=== PATIENT | female | born 1960 | race Caucasian/White ===

== ENCOUNTER → 2020-03-26 08:31 | Outpatient (BNVA) | payer OTHER, SELFPAY | PROVIDERS: PCP Family Medicine; Visit Provider Hospitalist | DX: J45.909 Unspecified asthma, uncomplicated (principal); J67.9 Hypersensitivity pneumonitis due to unspecified organic dust | CPT/HCPCS: 99212 ==

== ENCOUNTER → 2020-04-12 14:41 | Outpatient (BNVA) | payer OTHER, SELFPAY | PROVIDERS: PCP Family Medicine; Visit Provider Hospitalist | DX: Z23 Encounter for immunization (principal) | CPT/HCPCS: 90686; 99201 ==

== ENCOUNTER 2022-01-03 15:59 | Outpatient (REF) | payer OTHER, SELFPAY ==
--- NOTE | 2022-01-03 17:31 | PFT_ITS ---
INDICATION: Asthma and hypersensitivity pneumonitis. SPIROMETRY: FEV1 to FVC of 88% with an FEV1 of 2.47 L, which is 107% predicted and an FVC of 2.8 L, which is 94% predicted. No significant response to bronchodilators noted. Maximum voluntary ventilation 117% predicted. LUNG VOLUMES: Total lung capacity 92% predicted. DIFFUSION CAPACITY: DLCO 90% predicted. COMPARISONS: None available. INTERPRETATION: No obstructive nor restrictive ventilatory defects identified. No significant response to bronchodilators noted. Normal maximum voluntary ventilation. Lung volumes are within normal limits. Diffusion capacity is also within normal limits. Clinical correlation warranted. Boaz Nicole MD MR/MODL / [id number]
== END 2022-01-03 16:00 | disposition home or self-care (01) ==
LOC: HO.RESP 15:59
PROVIDERS: PCP Internal Medicine; Visit Provider Hospitalist
DX: J45.909 Unspecified asthma, uncomplicated (principal)
CPT/HCPCS: 94060; 94727; 94729

== ENCOUNTER 2022-01-18 10:42 | Outpatient (REF) | payer OTHER, SELFPAY ==
--- NOTE | ~2022-01-18 | XR_ITS ---
EXAMINATION: XR CHEST CLINICAL INFORMATION: Unspecified asthma COMPARISON: Chest x-ray 05/02/2019 TECHNIQUE: 2 views of the chest were obtained. FINDINGS: Cardiac silhouette is normal in size. The lungs are well aerated. Suture line projects over the right upper and mid lung. There is no lobar consolidation. No pleural effusion or pneumothorax. Scoliotic and mild degenerative changes of the spine. XR/XR chest 2V IMPRESSION: No acute pulmonary pathology.
== END 2022-01-18 10:43 | disposition home or self-care (01) ==
LOC: HO.XRAY 10:42
PROVIDERS: Visit Provider Hospitalist
DX: J45.909 Unspecified asthma, uncomplicated (principal)
CPT/HCPCS: 71046

== ENCOUNTER 2023-02-06 15:58 | Outpatient (REF) | payer OTHER, SELFPAY ==
--- NOTE | ~2023-02-06 | XR_ITS ---
EXAMINATION: XR CHEST CLINICAL INFORMATION: Asthma, uncomplicated COMPARISON: 01/18/2023 TECHNIQUE: 2 views of the chest were obtained. FINDINGS: No significant abnormality is noted involving the heart, lungs, mediastinum, bony thorax or soft tissues. Mild biconvex scoliosis is present. XR/XR chest 2V IMPRESSION: No acute intrathoracic disease.
--- NOTE | 2023-02-06 16:51 | PFT_ITS ---
INDICATION: Asthma. SPIROMETRY: FEV1 to FVC of 81% with an FEV1 of 2.29 L, which is 104% predicted and an FVC of 2.81 L, which is 101% predicted. No significant response to bronchodilators is noted. Maximum voluntary ventilation 121% predicted. LUNG VOLUMES: Total lung capacity 86% predicted. DIFFUSION CAPACITY: DLCO of 78% predicted. COMPARISONS: None available at this time. INTERPRETATION: No obstructive no restrictive ventilatory defects identified. No significant response to bronchodilators noted. Normal maximum voluntary ventilation. Lung volumes are within normal limits. The patient does have mild diffusion impairment. Clinical correlation warranted. Boza Nicole MD MR/MODL / [id number]
== END 2023-02-06 15:59 | disposition home or self-care (01) ==
LOC: HO.RESP 15:58
PROVIDERS: PCP Internal Medicine; Visit Provider Hospitalist
DX: J45.909 Unspecified asthma, uncomplicated (principal)
CPT/HCPCS: 71046; 94010; 94727; 94729

== ENCOUNTER → 2023-02-06 16:51 | Outpatient (BNV) | payer OTHER, SELFPAY | PROVIDERS: PCP Internal Medicine; Visit Provider Hospitalist | DX: J45.909 Unspecified asthma, uncomplicated (principal) | CPT/HCPCS: 94060; 94727; 94729 ==

== ENCOUNTER 2023-03-13 15:02 | Outpatient (REF) | payer OTHER, SELFPAY ==
[2023-03-13 16:33] LABS: Influenza A PCR POSITIVE (Negative); Influenza B PCR NEGATIVE (Negative); Resp Syncy Virus RNA Qual PCR NEGATIVE (Negative); SARS COV2 PCR INHOUSE NEGATIVE (Negative)
== END 2023-03-13 15:03 | disposition home or self-care (01) ==
LOC: HO.LNP 15:02
PROVIDERS: PCP Internal Medicine; Visit Provider Hospitalist
DX: Z11.52 Encounter for screening for COVID-19 (principal); Z20.822 Contact with and (suspected) exposure to COVID-19; J45.40 Moderate persistent asthma, uncomplicated
CPT/HCPCS: 0241U

== ENCOUNTER 2023-03-13 15:02 | Outpatient (AMB) | payer OTHER, SELFPAY ==
--- NOTE | 2023-03-13 15:09 | A.OFFVIS_ITS ---
Intake Vital Signs 03/13/23 15:12 Weight 124 lb 8.979 oz BP 102/60 Blood Pressure Location Lt brachial Position Sitting Pulse 87 Pulse Oximetry (%) 98 Oxygen Delivery Method Room Air Intake Visit Reasons: Asthma/PFT Follow Up Allergies No Known Allergies Allergy (Verified 03/13/23 15:19) Medication List - Last Reconciled 03/13/23 by Magui Ren LPN budesonide-formoterol 160-4.5 mcg/actuation (Symbicort) 2 puffs PO BID cholecalciferol (vitamin D3) 25 mcg PO DAILY estradiol (Yuvafem) 10 mcg vaginal 2XW hydrocortisone valerate 0.2% 1 appl topical BID PRN [lambdapil PO 1XD] magnesium 250 mg PO DAILY meloxicam 15 mg PO DAILY PRN montelukast 10 mg PO BEDTIME turmeric mg PO HPI HPI Comments History of Present Illness Details The patient is a 62-year-old woman with a known history of asthma in addition to acute fibrinous organizing pneumonia (AFOP) biopsy-proven. She did require prednisone and also CellCept for a duration of time. Subsequently was able to wean off. She has been doing well and have not seen her in the last couple years. She still complains of dyspnea on exertion. Moderate severity. Does have some wheezing at times. She does have a rescue inhaler that she uses. She used to have Symbicort HFA has not been using it regularly. She has not had any imaging studies of breathing studies in some time. Also to note her hypersensitivity panel had been positive in the past. She did have mold issues in the bathroom which was felt to be potentially contributing to her underlying interstitial process. She has normal lung mechanics which is reassuring. The patient was supposed to have an x-ray. 03/26/2020 the patient is here for pulmonary follow-up visit. Overall she has been doing well from a respiratory status. She denies any shortness of breath or coughing. She has been using her mask all time. At work there was a positive employee subsequently after that for people were out with COVID-19. She tested twice negative. She denies any ongoing symptoms. She has not had any recent x-rays or laboratory data. On examination she continues to have some wheezing. She needs to start using the Symbicort at least daily. She also should be using the singular at nighttime. No evidence of any recurrence from the organizing pneumonia likely related to hypersensitivity pneumonitis at this time. 01/24/2022 the patient is here for a pulmonary follow-up visit. She continues to do well. She has been compliant with her Symbicort taking it daily. In addition to that she has been using the singular daily. She is wondering if he needs to do all the medicine. She is feeling well. She denies any respiratory limitations. She is exercising regularly. Denies any wheezing or chest tightness or any significant allergies. Her allergies may be indeed more seasonal typically worse in the springtime. We did review her chest x-ray demonstrated no acute disease to some postsurgical changes and also her pulmonary function studies were normal. This is reassuring specially after having interstitial lung disease. No evidence of any recurrence or any significant residual. On examination she still has some minimal is crackles which is likely all related to her surgery. No significant wheezing. We did talk about decreasing the amount of Symbicort to 1 dilation and also she can use the Singulair seasonally. 03/13/2023 the patient is here for a pulmonary follow-up visit. Unfortunately the patient became ill the last couple days. She is been noticing hoarseness and also chest congestion and some shortness of breath. She is very concerned because of her history of interstitial lung disease and acute respiratory failure. I did reassure her that appears that she does have a viral syndrome. She has not tested for any viruses so therefore we did do a viral swab in the office for flu, RSV and COVID-19. On examination she does have some rhonchi and some wheezing on examination. She has been using the Symbicort twice a day which is reassuring she also has a rescue inhaler will make sure that she has 1 up today. The patient also did have pulmonary function studies which we personally reviewed and appeared to be reassuring without any evidence of any obstructive nor restrictive ventilatory defects. She had this study done prior to getting sick. And also prior to getting sick she did have a chest x- ray that was also without any acute disease. I did reassure her that based on those findings I do not believe she has any active interstitial lung disease and just an acute viral illness. The patient will be treating with medication. if she is no better by next week she will call and will do additional testing then. PFSH Medical History (Updated 03/15/23 @ 22:36 by Boaz Nicole MD) Viral syndrome H/O interstitial lung disease Hypersensitivity pneumonitis Organizing pneumonia Asthma Social History (Updated 01/24/22 @ 14:31 by WIL Morrow) Patient Tobacco Use Status: Never used Tobacco Review of Systems Const Reports chills, Reports fatigue, Reports malaise and Denies night sweats ENT Reports change in voice, Reports hoarseness, Denies lip swelling, Denies mouth pain, Reports nasal congestion, Reports nasal discharge and Denies tongue swelling Card Denies chest pain Resp Reports chest congestion, Denies cough and Reports wheezing GI Denies abdominal pain Musc Denies no additional complaints Neuro Denies Neuro-related abnormal movements Psych Denies no additional complaints Endo Reports fatigue Hermes/Lymph Denies easy bleeding and Denies lymphadenopathy Aller/Immun Denies lip swelling, Denies tongue swelling and Reports wheezing Physical Exam Vital Signs: Last Vital Signs Pulse 87 03/13/23 15:12 BP 102/60 03/13/23 15:12 Pulse Ox 98 03/13/23 15:12 Oxygen Delivery Method Room Air 03/13/23 15:12 Const General: alert HEENT General nose exam: Abnormal external nose present and Nasal discharge present Eyes Pupils: Equal, round and reactive pupils present Neck Neck: Yes normal visual inspection, Yes full ROM and Yes no lymphadenopathy Chest Chest palpation & inspection: normal inspection of the chest Resp Auscultation: rales, rhonchi, wheezes and diminished lung sounds Cardio Rate: regular rate Rhythm: regular rhythm Heart sounds: S1 normal heart sound present and S2 normal heart sound present GI Palpation (GI): Soft to palpation and nontender Auscultation: normal bowel sounds General: Yes no CVA tenderness Back/Spine/Pelvis Back: no CVA tenderness Skin General skin exam: rashes and/or lesions noted Neuro Cranial nerves: Yes Equal, round and reactive pupils present Assessment & Plan Assessment & Plan (1) Viral syndrome: Code(s): B34.9 - Viral infection, unspecified (2) Asthma: Code(s): J45.909 - Unspecified asthma, uncomplicated Qualifiers: Asthma severity: moderate Asthma persistence: persistent Asthma complication type: uncomplicated Qualified Code(s): J45.40 - Moderate persistent asthma, uncomplicated Plan: Short-acting beta agonist as needed (3) Hypersensitivity pneumonitis: Comment: No evidence of active disease Code(s): J67.9 - Hypersensitivity pneumonitis due to unspecified organic dust Plan: Avoiding mold (4) H/O interstitial lung disease: Comment: no evidence of active disease Code(s): Z87.09 - Personal history of other diseases of the respiratory system Plan nasal swab. awaiting results start Prednisone taper start Doxycycline continue symbicort MARY as needed F/U 6 months Orders: Orders SARS-CoV2/FLU/RSV 03/13/23 J45.909 - Unspecified asthma, uncomplicated Medications: New prednisone PO daily; 3 tabs x 3 days, then 2 tabs daily x 3 days, then 1 tab x 3 days to complete. 9 days 18 tabs 0RF doxycycline monohydrate 100 mg PO BID 10 days 20 tabs 0RF albuterol sulfate 90 mcg/actuation 2 inhalations inhalation Q6H 30 days PRN 18 grams 12RF shortness of breath or wheezing J44.9 - Chronic obstructive pulmonary disease, unspecified Refilled budesonide-formoterol 160-4.5 mcg/actuation (Symbicort) 2 puffs PO BID 30.6 grams 3RF Coding Level of Care Code Est Pt Level 4 (28074) Diagnoses Viral syndrome B34.9 Moderate persistent asthma without complication J45.40 Asthma severity: moderate Asthma persistence: persistent Asthma complication type: uncomplicated Hypersensitivity pneumonitis J67.9 H/O interstitial lung disease Z87.09 Time Spent (min) 17
[2023-03-13 15:12] VITALS: BP 102/60; PULSE 87; O2SAT 98
== END 2023-03-13 15:44 | disposition home or self-care (01) ==
PROVIDERS: PCP Internal Medicine; Visit Provider Hospitalist
DX: B34.9 Viral infection, unspecified (principal); J45.40 Moderate persistent asthma, uncomplicated; J67.9 Hypersensitivity pneumonitis due to unspecified organic dust; Z87.09 Personal history of other diseases of the respiratory system
CPT/HCPCS: 99214

== ENCOUNTER 2023-09-18 15:44 | Outpatient (AMB) | payer OTHER, SELFPAY ==
[2023-09-18 15:51] VITALS: PULSE 61; O2SAT 99; BMI 22.3
--- NOTE | 2023-09-18 15:51 | MHC.OFFVIS ---
Vital Signs 09/18/23 15:51 Height 5 ft 1 in Weight 118 lb BMI 22.3 Pulse 61 Pulse Source Pulse Oximeter Pulse Oximetry (%) 99 Oxygen Delivery Method Room Air Intake Visit Reasons: Asthma [employer]inder[employer] A[employer] Required: No Allergies No Known Allergies Allergy (Verified 09/18/23 15:53) HPI Comments Details: The patient is a 62-year-old woman with a known history of asthma in addition to acute fibrinous organizing pneumonia (AFOP) biopsy-proven. She did require prednisone and also CellCept for a duration of time. Subsequently was able to wean off. She has been doing well and have not seen her in the last couple years. She still complains of dyspnea on exertion. Moderate severity. Does have some wheezing at times. She does have a rescue inhaler that she uses. She used to have Symbicort HFA has not been using it regularly. She has not had any imaging studies of breathing studies in some time. Also to note her hypersensitivity panel had been positive in the past. She did have mold issues in the bathroom which was felt to be potentially contributing to her underlying interstitial process. She has normal lung mechanics which is reassuring. The patient was supposed to have an x-ray. 03/26/2020 the patient is here for pulmonary follow-up visit. Overall she has been doing well from a respiratory status. She denies any shortness of breath or coughing. She has been using her mask all time. At work there was a positive employee subsequently after that for people were out with COVID-19. She tested twice negative. She denies any ongoing symptoms. She has not had any recent x-rays or laboratory data. On examination she continues to have some wheezing. She needs to start using the Symbicort at least daily. She also should be using the singular at nighttime. No evidence of any recurrence from the organizing pneumonia likely related to hypersensitivity pneumonitis at this time. 01/24/2022 the patient is here for a pulmonary follow-up visit. She continues to do well. She has been compliant with her Symbicort taking it daily. In addition to that she has been using the singular daily. She is wondering if he needs to do all the medicine. She is feeling well. She denies any respiratory limitations. She is exercising regularly. Denies any wheezing or chest tightness or any significant allergies. Her allergies may be indeed more seasonal typically worse in the springtime. We did review her chest x-ray demonstrated no acute disease to some postsurgical changes and also her pulmonary function studies were normal. This is reassuring specially after having interstitial lung disease. No evidence of any recurrence or any significant residual. On examination she still has some minimal is crackles which is likely all related to her surgery. No significant wheezing. We did talk about decreasing the amount of Symbicort to 1 dilation and also she can use the Singulair seasonally. 03/13/2023 the patient is here for a pulmonary follow-up visit. Unfortunately the patient became ill the last couple days. She is been noticing hoarseness and also chest congestion and some shortness of breath. She is very concerned because of her history of interstitial lung disease and acute respiratory failure. I did reassure her that appears that she does have a viral syndrome. She has not tested for any viruses so therefore we did do a viral swab in the office for flu, RSV and COVID-19. On examination she does have some rhonchi and some wheezing on examination. She has been using the Symbicort twice a day which is reassuring she also has a rescue inhaler will make sure that she has 1 up today. The patient also did have pulmonary function studies which we personally reviewed and appeared to be reassuring without any evidence of any obstructive nor restrictive ventilatory defects. She had this study done prior to getting sick. And also prior to getting sick she did have a chest x-ray that was also without any acute disease. I did reassure her that based on those findings I do not believe she has any active interstitial lung disease and just an acute viral illness. The patient will be treating with medication. if she is no better by next week she will call and will do additional testing then. 09/18/2023 the patient is here for a pulmonary follow-up visit. The patient overall has been doing better. She did have the flu back in March and exacerbated her asthma. Currently she is back to her baseline. She is using Symbicort that she still feels some chest tightness at times. She has not had to use Singulair. The patient has been trying to increase her exercise activity. We did review her last chest x-ray that she had back in the fall of 2022 demonstrating no acute disease. And we also reviewed her PFTs that she had back in 01/30/2023 demonstrating low normal total lung capacity with a mild diffusion impairment. This is a slight decreased when compared to 2020 2. Will go ahead and repeat her PFTs in a year. Patient should also have a chest x-ray as well. Will go ahead and also try to optimize respiratory therapy by switching her over to Breztri. If the patient has any worsening issues or any new issues she will call for an earlier assessment. [facility] Medical History (Updated 03/15/23 @ 22:36 by Boaz Nicole MD) Viral syndrome H/O interstitial lung disease Hypersensitivity pneumonitis Organizing pneumonia Asthma Social History (Updated 01/24/22 @ 14:31 by Nia Nunez Harsh) Patient Tobacco Use Status: Never used Tobacco Review of Systems Const Denies chills, Denies fatigue, Denies malaise and Denies night sweats ENT Denies lip swelling, Denies mouth pain, Reports nasal congestion and Denies tongue swelling Card Denies chest pain Resp Denies chest congestion, Denies cough and Denies wheezing GI Denies abdominal pain Musc Denies no additional complaints Neuro Denies Neuro-related abnormal movements Psych Denies no additional complaints Endo Denies fatigue Hermes/Lymph Denies easy bleeding and Denies lymphadenopathy Aller/Immun Denies lip swelling, Denies tongue swelling and Denies wheezing Physical Exam Vital Signs: Last Vital Signs Pulse 61 09/18/23 15:51 Pulse Ox 99 09/18/23 15:51 Oxygen Delivery Method Room Air 09/18/23 15:51 BMI result Body Mass Index 22.3 Const General: comfortable and alert HEENT Head: Yes normocephalic General nose exam: Normal external nose present Eyes Pupils: Equal, round and reactive pupils present Neck Neck: Yes normal visual inspection, Yes full ROM and Yes no lymphadenopathy Chest Chest palpation & inspection: normal inspection of the chest Resp Effort & Inspection: normal respiratory effort Auscultation: clear to auscultation bilaterally Cardio Rate: regular rate Rhythm: regular rhythm Heart sounds: S1 normal heart sound present and S2 normal heart sound present GI Palpation (GI): Soft to palpation and nontender Auscultation: normal bowel sounds General: Yes no CVA tenderness Back/Spine/Pelvis Back: no CVA tenderness Skin General skin exam: rashes and/or lesions noted Neuro Cranial nerves: Yes Equal, round and reactive pupils present Assessment & Plan Assessment & Plan (1) Asthma: Code(s): J45.909 - Unspecified asthma, uncomplicated Category: Medical Qualifiers: Asthma complication type: uncomplicated Asthma persistence: persistent Asthma severity: moderate Qualified Code(s): J45.40 - Moderate persistent asthma, uncomplicated Plan: Short-acting beta agonist as needed (2) Hypersensitivity pneumonitis: Comment: No evidence of active disease Code(s): J67.9 - Hypersensitivity pneumonitis due to unspecified organic dust Category: Medical Plan: Avoiding mold (3) H/O interstitial lung disease: Comment: no evidence of active disease Code(s): Z87.09 - Personal history of other diseases of the respiratory system Category: Medical Plan stop symbicort start Breztri MARY as needed F/U 12 months with CXR and PFTs Orders: Orders XR chest 2V 11 Months J45.40 - Moderate persistent asthma, uncomplicated PFT pulmonary function test 11 Months J45.40 - Moderate persistent asthma, uncomplicated Medications: New iqtqwrxssb-nziphozv-yismqlzuhh 160-9-4.8 mcg/actuation (Breztri Aerosphere) 2 inhalations inhalation BID 30 days 10.7 grams 11RF Coding Level of Care Code Est Pt Level 4 (52211) Diagnoses Moderate persistent asthma without complication J45.40 Asthma complication type: uncomplicated Asthma persistence: persistent Asthma severity: moderate Hypersensitivity pneumonitis J67.9 H/O interstitial lung disease Z87.09 Time Spent (min) 16
== END 2023-09-18 16:11 | disposition home or self-care (01) ==
PROVIDERS: PCP Internal Medicine; Visit Provider Hospitalist
DX: J45.40 Moderate persistent asthma, uncomplicated (principal); J67.9 Hypersensitivity pneumonitis due to unspecified organic dust; Z87.09 Personal history of other diseases of the respiratory system
CPT/HCPCS: 99214

== ENCOUNTER → 2023-09-18 15:44 | Outpatient (BNVA) | payer OTHER, SELFPAY | PROVIDERS: PCP Internal Medicine; Visit Provider Hospitalist ==

== ENCOUNTER 2024-01-22 09:16 | Outpatient (REF) | payer OTHER, SELFPAY ==
--- NOTE | ~2024-01-22 | XR_ITS ---
EXAMINATION: XR CHEST CLINICAL INFORMATION: Moderate persistent asthma COMPARISON: Chest radiograph 02/06/2023 TECHNIQUE: 2 views of the chest were obtained. FINDINGS: The lungs are well-expanded. No focal consolidation. No pleural effusions or pneumothorax. The cardiac mediastinal silhouette is within normal limits. Aortic calcifications. No acute osseous abnormality. Mild extra convex curvature of the lumbar spine. 4 mm retrolisthesis of likely L2 over L3, similar to prior exam. Degenerative changes of the lumbar spine. XR/XR chest 2V IMPRESSION: No acute pulmonary disease. Electronically signed by: Jigar Smith MD 01/22/2024 10:55 AM EDT
== END 2024-01-22 09:17 | disposition home or self-care (01) ==
LOC: HO.XRAY 09:16
PROVIDERS: Visit Provider Hospitalist
DX: J45.40 Moderate persistent asthma, uncomplicated (principal)
CPT/HCPCS: 71046

== ENCOUNTER 2024-01-22 09:34 | Outpatient (AMB) | payer OTHER, SELFPAY ==
[2024-01-22 09:39] VITALS: BP 130/78; PULSE 62; O2SAT 98; BMI 22.7
--- NOTE | 2024-01-22 09:39 | A.OFFVIS_ITS ---
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 She did require prednisone and also CellCept for a duration of time. Subsequently was able to wean off. She has been doing well and have not seen her in the last couple years. She still complains of dyspnea on exertion. Moderate severity. Does have some wheezing at times. She does have a rescue inhaler that she uses. She used to have Symbicort HFA has not been using it regularly. She has not had any imaging studies of breathing studies in some time. Also to note her hypersensitivity panel had been positive in the past. She did have mold issues in the bathroom which was felt to be potentially contributing to her underlying interstitial process. She has normal lung mechanics which is reassuring. The patient was supposed to have an x-ray. 03/26/2020 the patient is here for pulmonary follow-up visit. Overall she has been doing well from a respiratory status. She denies any shortness of breath or coughing. She has been using her mask all time. At work there was a positive employee subsequently after that for people were out with COVID-19. She tested twice negative. She denies any ongoing symptoms. She has not had any recent x-rays or laboratory data. On examination she continues to have some wheezing. She needs to start using the Symbicort at least daily. She also should be using the singular at nighttime. No evidence of any recurrence from the organizing pneumonia likely related to hypersensitivity pneumonitis at this time. 01/24/2022 the patient is here for a pulmonary follow-up visit. She continues to do well. She has been compliant with her Symbicort taking it daily. In addition to that she has been using the singular daily. She is wondering if he needs to do all the medicine. She is feeling well. She denies any respiratory limitations. She is exercising regularly. Denies any wheezing or chest tightness or any significant allergies. Her allergies may be indeed more seasonal typically worse in the springtime. We did review her chest x-ray demonstrated no acute disease to some postsurgical changes and also her pulmonary function studies were normal. This is reassuring specially after having interstitial lung disease. No evidence of any recurrence or any significant residual. On examination she still has some minimal is crackles which is likely all related to her surgery. No significant wheezing. We did talk about decreasing the amount of Symbicort to 1 dilation and also she can use the Singulair seasonally. 03/13/2023 the patient is here for a pulmonary follow-up visit. Unfortunately the patient became ill the last couple days. She is been noticing hoarseness and also chest congestion and some shortness of breath. She is very concerned because of her history of interstitial lung disease and acute respiratory failure. I did reassure her that appears that she does have a viral syndrome. She has not tested for any viruses so therefore we did do a viral swab in the office for flu, RSV and COVID-19. On examination she does have some rhonchi and some wheezing on examination. She has been using the Symbicort twice a day which is reassuring she also has a rescue inhaler will make sure th at she has 1 up today. The patient also did have pulmonary function studies which we personally reviewed and appeared to be reassuring without any evidence of any obstructive nor restrictive ventilatory defects. She had this study done prior to getting sick. And also prior to getting sick she did have a chest x- ray that was also without any acute disease. I did reassure her that based on those findings I do not believe she has any active interstitial lung disease and just an acute viral illness. The patient will be treating with medication. if she is no better by next week she will call and will do additional testing then. 09/18/2023 the patient is here for a pulmonary follow-up visit. The patient overall has been doing better. She did have the flu back in March and exacerbated her asthma. Currently she is back to her baseline. She is using Symbicort that she still feels some chest tightness at times. She has not had to use Singulair. The patient has been trying to increase her exercise activity. We did review her last chest x-ray that she had back in the fall of 2022 demonstrating no acute disease. And we also reviewed her PFTs that she had back in 01/30/2023 demonstrating low normal total lung capacity with a mild diffusion impairment. This is a slight decreased when compared to 2019 2. Will go ahead and repeat her PFTs in a year. Patient should also have a chest x-ray as well. Will go ahead and also try to optimize respiratory therapy by switching her over to Breztri. If the patient has any worsening issues or any new issues she will call for an earlier assessment. 01/22/2024 the patient is here for sick visit. She has been sick now for about 2 weeks. She started developing a cough. Positive sick contacts at home. Started developing sore throat and also some tenderness over the cervical lymph nodes. Subsequently after that she started developing a cough. She went to an urgent care. The patient was given a course of doxycycline and a short course of prednisone. She did not feel better. The patient went to her primary care doctor's office. She was evaluated there. She was kept on the doxy and her prednisone was increased to 60 mg. She has been weaning down. She has not seen significant improvement. She feels that she has a significant productive cough. Moderate severity. She can not sleep with it. She has tried xjdn-osk-nawbftl allergy medications without any relief. In the office she has significant rhonchi and wheezing. She is getting nebulizer treatment now. She does have evidence of sinusitis and also bronchitis. The patient did have a chest x-ray which I personally reviewed demonstrating no acute disease. We are awaiting final read. [facility] Medical History (Updated 01/25/24 @ 21:06 by Boaz Nicole MD) Viral syndrome H/O interstitial lung disease Hypersensitivity pneumonitis Organizing pneumonia Asthma Social History (Updated 01/24/22 @ 14:31 by WIL Morrow) Patient Tobacco Use Status: Never used Tobacco Review of Systems Const Denies chills, Reports fatigue, Denies malaise and Denies night sweats ENT Denies lip swelling, Denies mouth pain, Reports nasal congestion and Denies tongue swelling Card Denies chest pain Resp Reports change in phlegm color, Reports chest congestion, Reports cough, Denies hemoptysis and Reports wheezing GI Denies abdominal pain Musc Denies no additional complaints Neuro Denies Neuro-related abnormal movements Psych Denies no additional complaints Endo Reports fatigue Hermes/Lymph Denies easy bleeding and Denies lymphadenopathy Aller/Immun Denies lip swelling, Denies tongue swelling and Reports wheezing Physical Exam Vital Signs: Last Vital Signs Pulse 62 01/22/24 09:39 BP 130/78 01/22/24 09:39 Pulse Ox 98 01/22/24 09:39 Oxygen Delivery Method Room Air 01/22/24 09:39 BMI result Body Mass Index 22.7 Const General: comfortable and alert HEENT Head: Yes normocephalic General nose exam: Normal external nose present Eyes Pupils: Equal, round and reactive pupils present Neck Neck: Yes normal visual inspection, Yes full ROM and Yes no lymphadenopathy Chest Chest palpation & inspection: normal inspection of the chest Resp Effort & Inspection: normal respiratory effort and Actively coughing Auscultation: wheezes Cardio Rate: regular rate Rhythm: regular rhythm Heart sounds: S1 normal heart sound present and S2 normal heart sound present GI Palpation (GI): Soft to palpation and nontender Auscultation: normal bowel sounds General: Yes no CVA tenderness Back/Spine/Pelvis Back: no CVA tenderness Skin General skin exam: rashes and/or lesions noted Neuro Cranial nerves: Yes Equal, round and reactive pupils present Results Reviewed Results Reviewed: CXR 01/21 personally reviewed by me, no acute disease Assessment & Plan Assessment & Plan (1) Asthma: Code(s): J45.909 - Unspecified asthma, uncomplicated Category: Medical Qualifiers: Asthma complication type: with acute exacerbation Asthma persistence: persistent Asthma severity: moderate Qualified Code(s): J45.41 - Moderate persistent asthma with (acute) exacerbation Plan: Short-acting beta agonist as needed (2) Bronchitis: Code(s): J40 - Bronchitis, not specified as acute or chronic Category: Medical (3) Hypersensitivity pneumonitis: Comment: No evidence of active disease Code(s): J67.9 - Hypersensitivity pneumonitis due to unspecified organic dust Category: Medical Plan: Avoiding mold (4) H/O interstitial lung disease: Comment: no evidence of active disease Code(s): Z87.09 - Personal history of other diseases of the respiratory system Category: Medical Plan start Augmentin continue prednisone taper nebulizer provided continue Breztri MARY as needed F/U 2-3 months Medications: New benzonatate 200 mg PO BID PRN 60 caps 0RF cough 30 days prednisone PO daily; Take 4 tabs x 3 days, then 3 tabs x 3 days, then 2 tabs daily x 3 days, then 1 tab x 3 days to complete. 30 tabs 0RF 12 days amoxicillin-pot clavulanate 875-125 mg 1 tab PO BID 20 tabs 0RF 10 days albuterol sulfate 2.5 mg (3 mL) inhalation Q6H PRN 180 mL 11RF shortness of breath or wheezing 30 days Coding Level of Care Code Est Pt Level 4 (15177) Diagnoses Moderate persistent asthma with acute exacerbation J45.41 Asthma complication type: with acute exacerbation Asthma persistence: persistent Asthma severity: moderate Bronchitis J40 Hypersensitivity pneumonitis J67.9 H/O interstitial lung disease Z87.09 Time Spent (min) 18
== END 2024-01-22 10:43 | disposition home or self-care (01) ==
PROVIDERS: PCP Internal Medicine; Visit Provider Hospitalist
DX: J45.41 Moderate persistent asthma with (acute) exacerbation (principal); J40 Bronchitis, not specified as acute or chronic; J67.9 Hypersensitivity pneumonitis due to unspecified organic dust; Z87.09 Personal history of other diseases of the respiratory system
CPT/HCPCS: 99214

== ENCOUNTER 2024-02-12 09:20 | Outpatient (REF) | payer OTHER, SELFPAY ==
[2024-02-12 11:14] LABS: MANUAL DIFF FLAG NO
[2024-02-12 11:18] LABS: VBG Base Excess 1.4 mmol/L; VBG HCO3 27 mmol/L (22-26); VBG pCO2 47 mmHg; VBG pH 7.36 (7.32-7.43); VBG pO2 34 mmHg
[2024-02-12 11:19] LABS: Venous Blood Gas Refer to POC result
[2024-02-12 11:35] LABS: Basophils Percent Auto 0.6 % (0-2); Eosinophils Absolute Auto 0.2 X10*3/uL (0.0-0.4); Eosinophils Percent Auto 3.7 % (0-4); Hematocrit 38.5 % (37.0-47.0); Hemoglobin 12.7 g/dl (12.0-16.0); Imm Gran Abs Auto 0.05 X10*3/uL (0.00-0.03); Lymphocytes Absolute Auto 1.2 X10*3/uL (1.2-4.9); Lymphocytes Percent Auto 22.4 % (20-40); Mean Corpuscular Hemoglobin 30.5 pg (27.0-33.0); Mean Corpuscular Volume 92.5 fL (80.0-98.0); Mean Platelet Volume 11.3 fL (9.4-12.3); Monocytes Absolute Auto 0.5 X10*3/uL (0.1-1.2); Monocytes Percent Auto 9.9 % (2-11); Neutrophils Absolute Auto 3.2 x10*3/uL (2.0-8.3); Neutrophils Percent Auto 62.4 % (45-73); Platelet Count 172 X10*3/uL (160-400); Red Blood Count 4.16 X10*6/uL (4.20-5.50); Red Cell Distribution Width 13.3 % (11.0-16.0); White Blood Count 5.2 X10*3/uL (4.8-10.8)
[2024-02-15 07:33] LABS: IgA 187 mg/dL (70-320); IgG 1046 mg/dL (600-1540); IgM 153 mg/dL (50-300)
[2024-02-15 15:34] LABS: Immunoglobulin G Subclass 1 474 mg/dL (382-929); Immunoglobulin G Subclass 2 349 mg/dL (241-700); Immunoglobulin G Subclass 3 44 mg/dL (22-178); Immunoglobulin G Subclass 4 34.8 mg/dL (4-86); Immunoglobulin G Total 945 mg/dL (600-1540)
[2024-02-15 23:35] LABS: Immunoglobulin E 6 kU/L (<OR=114)
[2024-02-16 21:29] LABS: Cyclic Citrullinated Peptide 33 UNITS
[2024-02-17 07:38] LABS: Anti DNA DS Antibody <1 IU/mL; Myeloperoxidase Antibody <1.0 AI; Proteinase 3 PR3 Antibodies <1.0 AI
[2024-02-18 12:23] LABS: Anti Nuclear Antibody Screen POSITIVE (NEGATIVE)
[2024-02-24 16:43] LABS: Asperg fumigatus Precip Abs NEGATIVE (NEGATIVE); Micropoly faeni Abs NEGATIVE (NEGATIVE); Pigeon serum Abs NEGATIVE (NEGATIVE); Saccharo pora viridis Abs NEGATIVE (NEGATIVE); Thermo candidus Abs NEGATIVE (NEGATIVE); Thermoa vulgaris #1 NEGATIVE (NEGATIVE)
== END 2024-02-12 09:21 | disposition home or self-care (01) ==
LOC: HO.XRAY 09:20
PROVIDERS: PCP Internal Medicine; Visit Provider Hospitalist
DX: J98.4 Other disorders of lung (principal); J40 Bronchitis, not specified as acute or chronic; R91.8 Other nonspecific abnormal finding of lung field
CPT/HCPCS: 36415; 71046; 82164; 82784; 82785; 82803; 85025; 86021; 86038; 86039; 86200; 86225; 86331; 86606; 86609

== ENCOUNTER 2024-02-12 09:46 | Outpatient (AMB) | payer OTHER, SELFPAY ==
--- NOTE | 2024-02-12 09:54 | MHC.OFFVIS ---
Vital Signs 02/12/24 09:57 Height 5 ft 1 in Weight 120 lb 2.431 oz BMI 22.7 BP 110/62 Blood Pressure Location Lt brachial Position Sitting Pulse 85 Pulse Source Pulse Oximeter Pulse Oximetry (%) 98 Oxygen Delivery Method Room Air Intake Visit Reasons: Cough Fixed Income Manager Required: No Industrial Relations Officer: Industrial Relations Officer offered & declined Accompanied by: Self / Same As Patient Allergies No Known Allergies Allergy (Verified 02/12/24 10:07) Medication List - Last Reconciled 02/12/24 by Genet Tillman LPN albuterol sulfate 90 mcg/actuation 2 inhalations inhalation Q6H PRN 30 days albuterol sulfate 2.5 mg (3 mL) inhalation Q6H PRN 30 days amoxicillin-pot clavulanate 875-125 mg 1 tab PO BID 10 days azithromycin 500 mg PO DAILY 5 days benzonatate 200 mg PO BID PRN 30 days xytaourrfi-bfrtzmbf-xkyjhemnpv 160-9-4.8 mcg/actuation (Breztri Aerosphere) 2 inhalations inhalation BID 30 days cholecalciferol (vitamin D3) 25 mcg PO DAILY doxycycline hyclate 100 mg PO BID estradiol (Yuvafem) 10 mcg vaginal 2XW hydrocortisone valerate 0.2% 1 appl topical BID PRN [lambdapil PO 1XD] magnesium 250 mg PO DAILY meloxicam 15 mg PO DAILY PRN montelukast 10 mg PO BEDTIME PRN prednisone PO daily; Take 4 tabs x 3 days, then 3 tabs x 3 days, then 2 tabs daily x 3 days, then 1 tab x 3 days to complete. 12 days prednisone PO daily; Take 2 tabs daily x 5 days, then 1 tab daily x 5 days 18 days prednisone 40 mg PO DAILY HPI Comments Details: The patient is a 63-year-old woman with a known history of asthma in addition to acute fibrinous organizing pneumonia (AFOP) biopsy-proven. She did require prednisone and also CellCept for a duration of time. Subsequently was able to wean off. She has been doing well and have not seen her in the last couple years. She still complains of dyspnea on exertion. Moderate severity. Does have some wheezing at times. She does have a rescue inhaler that she uses. She used to have Symbicort HFA has not been using it regularly. She has not had any imaging studies of breathing studies in some time. Also to note her hypersensitivity panel had been positive in the past. She did have mold issues in the bathroom which was felt to be potentially contributing to her underlying interstitial process. She has normal lung mechanics which is reassuring. The patient was supposed to have an x-ray. crackles which is likely all related to her surgery. No significant wheezing. We did talk about decreasing the amount of Symbicort to 1 dilation and also she can use the Singulair seasonally. 03/13/2023 the patient is here for a pulmonary follow-up visit. Unfortunately the patient became ill the last couple days. She is been noticing hoarseness and also chest congestion and some shortness of breath. She is very concerned because of her history of interstitial lung disease and acute respiratory failure. I did reassure her that appears that she does have a viral syndrome. She has not tested for any viruses so therefore we did do a viral swab in the office for flu, RSV and COVID-19. On examination she does have some rhonchi and some wheezing on examination. She has been using the Symbicort twice a day which is reassuring she also has a rescue inhaler will make sure that she has 1 up today. The patient also did have pulmonary function studies which we personally reviewed and appeared to be reassuring without any evidence of any obstructive nor restrictive ventilatory defects. She had this study done prior to getting sick. And also prior to getting sick she did have a chest x-ray that was also without any acute disease. I did reassure her that based on those findings I do not believe she has any active interstitial lung disease and just an acute viral illness. The patient will be treating with medication. if she is no better by next week she will call and will do additional testing then. 09/18/2023 the patient is here for a pulmonary follow-up visit. The patient overall has been doing better. She did have the flu back in March and exacerbated her asthma. Currently she is back to her baseline. She is using Symbicort that she still feels some chest tightness at times. She has not had to use Singulair. The patient has been trying to increase her exercise activity. We did review her last chest x-ray that she had back in the fall of 2022 demonstrating no acute disease. And we also reviewed her PFTs that she had back in 01/30/2023 demonstrating low normal total lung capacity with a mild diffusion impairment. This is a slight decreased when compared to 2020 2. Will go ahead and repeat her PFTs in a year. Patient should also have a chest x-ray as well. Will go ahead and also try to optimize respiratory therapy by switching her over to Breztri. If the patient has any worsening issues or any new issues she will call for an earlier assessment. 01/22/2024 the patient is here for sick visit. She has been sick now for about 2 weeks. She started developing a cough. Positive sick contacts at home. Started developing sore throat and also some tenderness over the cervical lymph nodes. Subsequently after that she started developing a cough. She went to an urgent care. The patient was given a course of doxycycline and a short course of prednisone. She did not feel better. The patient went to her primary care doctor's office. She was evaluated there. She was kept on the doxy and her prednisone was increased to 60 mg. She has been weaning down. She has not seen significant improvement. She feels that she has a significant productive cough. Moderate severity. She can not sleep with it. She has tried xzcx-ndu-zwaqgsm allergy medications without any relief. In the office she has significant rhonchi and wheezing. She is getting nebulizer treatment now. She does have evidence of sinusitis and also bronchitis. The patient did have a chest x-ray which I personally reviewed demonstrating no acute disease. We are awaiting final read. 02/12/2024 the patient is here for a follow-up visit. She developed worsening respiratory symptoms since we last spoke. apparently she was feeling better and she had a fall and she had a significant hematoma on the right thigh. She went to initially [facility] with a documented a large hematoma. Ultimately she started developing worsening shortness of breath and hypoxia. She was referred to [facility]. There she did undergo blood work including a hemoglobin dropping in of 3 g. in addition to that she had a CTA which I personally reviewed demonstrating some haziness suggesting some degree of pneumonitis which was diffuse throughout. No evidence of any pneumonia. She completed the 2nd course of antibiotics. In addition to that now she is having some ear pressure and sinus discomfort. She is down to 10 mg of prednisone. She is using the nebulizer. But she is concerned that she is not significantly better. She does have a pulse ox and sometimes her pulse ox is in the 80s. On exam she still has significant wheezing on exam. She is going to need to stay on the prednisone. Also some evidence of fluid in the middle ear. Will request additional blood work to assess her pneumonitis. Could be postviral although she does have a history of a fall likely hypersensitivity pneumonitis. We did try to collect a sputum sample in the office but we were not able to. Will go ahead and request blood work. If the patient is not able to provide a sputum sample and if it is still not clear if his symptoms have not improved with this 3rd course of medications then will talk about a bronchoscopy. [facility] Medical History (Updated 02/14/24 @ 17:21 by Boaz Nicole MD) Otitis media Bronchopneumonia Pneumonitis Viral syndrome H/O interstitial lung disease Hypersensitivity pneumonitis Organizing pneumonia Asthma Social History (Updated 02/12/24 @ 10:09 by Genet Tillman LPN) Patient Tobacco Use Status: Never used Tobacco Review of Systems Const Denies chills, Reports fatigue, Denies malaise and Denies night sweats ENT Denies lip swelling, Denies mouth pain, Reports nasal congestion and Denies tongue swelling Card Denies chest pain and Reports dyspnea on exertion Resp Reports chest congestion, Reports cough, Denies hemoptysis, Reports dyspnea on exertion and Reports wheezing GI Denies abdominal pain Musc Denies no additional complaints Neuro Denies Neuro-related abnormal movements Psych Denies no additional complaints Endo Reports fatigue Hermes/Lymph Denies easy bleeding and Denies lymphadenopathy Aller/Immun Denies lip swelling, Denies tongue swelling and Reports wheezing Physical Exam Vital Signs: Last Vital Signs Pulse 85 02/12/24 09:57 BP 110/62 02/12/24 09:57 Pulse Ox 98 02/12/24 09:57 Oxygen Delivery Method Room Air 02/12/24 09:57 BMI result Body Mass Index 22.7 Const General: comfortable and alert HEENT Head: Yes normocephalic Ears: TM abnormal wth effusion and with fluid behind the TM General nose exam: Normal external nose present Eyes Pupils: Equal, round and reactive pupils present Neck Neck: Yes normal visual inspection, Yes full ROM and Yes no lymphadenopathy Chest Chest palpation & inspection: normal inspection of the chest Resp Effort & Inspection: normal respiratory effort, audible wheezes, Actively coughing and prolonged expiratory phase Auscultation: rhonchi and wheezes Cardio Rate: regular rate Rhythm: regular rhythm Heart sounds: S1 normal heart sound present and S2 normal heart sound present GI Palpation (GI): Soft to palpation and nontender Auscultation: normal bowel sounds General: Yes no CVA tenderness Back/Spine/Pelvis Back: no CVA tenderness Skin General skin exam: rashes and/or lesions noted Neuro Cranial nerves: Yes Equal, round and reactive pupils present Results Reviewed Results Reviewed: CTA 01/2024 personally reviewed by me with faint pneumonitis with some areas of sparring. Not mentioned on the report. Assessment & Plan Assessment & Plan (1) Pneumonitis: Code(s): J98.4 - Other disorders of lung Category: Medical (2) Bronchopneumonia: Code(s): J18.0 - Bronchopneumonia, unspecified organism Category: Medical (3) Asthma: Code(s): J45.909 - Unspecified asthma, uncomplicated Category: Medical Qualifiers: Asthma severity: moderate Asthma persistence: persistent Asthma complication type: with acute exacerbation Qualified Code(s): J45.41 - Moderate persistent asthma with (acute) exacerbation Plan: Short-acting beta agonist as needed (4) Bronchitis: Code(s): J40 - Bronchitis, not specified as acute or chronic Category: Medical (5) Hypersensitivity pneumonitis: Code(s): J67.9 - Hypersensitivity pneumonitis due to unspecified organic dust Category: Medical Plan: Avoiding mold (6) H/O interstitial lung disease: Comment: AFOB Code(s): Z87.09 - Personal history of other diseases of the respiratory system Category: Medical (7) Otitis media: Code(s): H66.90 - Otitis media, unspecified, unspecified ear Category: Medical Qualifiers: Otitis media type: serous Chronicity: unspecified Laterality: bilateral Qualified Code(s): H65.93 - Unspecified nonsuppurative otitis media, bilateral Plan start Azithromycin continue prednisone taper nebulizer continue Breztri MARY as needed start pseudophed bloodwork sputum culture if able consider bronchoscopy F/U 2-3 weeks Orders: Orders Venous Blood Gas 02/12/24 J98.4 - Other disorders of lung Cyclic Citrullinated Peptide 02/12/24 J98.4 - Other disorders of lung KRISTOPHER Reflex Titer and Pattern 02/12/24 J98.4 - Other disorders of lung Hypersensitive Pneumonitis Prf 02/12/24 J98.4 - Other disorders of lung, R91.8 - Other nonspecific abnormal finding of lung field Immunoglobulin E 02/12/24 J98.4 - Other disorders of lung Immunoglobulin G Subclasses 02/12/24 J98.4 - Other disorders of lung Complete Blood Count Auto Diff 02/12/24 J98.4 - Other disorders of lung Angiotensin Converting Enzyme 02/12/24 J98.4 - Other disorders of lung Anti DNA DS Antibody 02/12/24 J98.4 - Other disorders of lung ANCA Vasculitides 02/12/24 J98.4 - Other disorders of lung Immunoglobulins,IgG IgA IgM 02/12/24 J98.4 - Other disorders of lung Sputum Cult + Gram stain 02/12/24 J18.0 - Bronchopneumonia, unspecified organism, J98.4 - Other disorders of lung Medications: New pseudoephedrine HCl ER 120 mg PO Q12H 30 days 60 tabs 1RF Changed From prednisone PO daily; Take 2 tabs daily x 5 days, then 1 tab daily x 5 days 18 days 63 tabs 0RF To prednisone PO daily; Take 2 tabs daily x 7 days, then 1 tab daily x 21 days 28 days 35 tabs 0RF Coding Level of Care Code Est Pt Level 5 (57242) Diagnoses Pneumonitis J98.4 Bronchopneumonia J18.0 Moderate persistent asthma with acute exacerbation J45.41 Asthma severity: moderate Asthma persistence: persistent Asthma complication type: with acute exacerbation Bronchitis J40 Hypersensitivity pneumonitis J67.9 H/O interstitial lung disease Z87.09 Bilateral serous otitis media, unspecified chronicity H65.93 Otitis media type: serous Chronicity: unspecified Laterality: bilateral Time Spent (min) 40
[2024-02-12 09:57] VITALS: BP 110/62; PULSE 85; O2SAT 98; BMI 22.7
== END 2024-02-12 10:30 | disposition home or self-care (01) ==
LOC: HO.HPS 09:47
PROVIDERS: PCP Internal Medicine; Visit Provider Hospitalist
DX: J98.4 Other disorders of lung (principal); J18.0 Bronchopneumonia, unspecified organism; J45.41 Moderate persistent asthma with (acute) exacerbation; J67.9 Hypersensitivity pneumonitis due to unspecified organic dust; Z87.09 Personal history of other diseases of the respiratory system; H65.93 Unspecified nonsuppurative otitis media, bilateral
CPT/HCPCS: 99215

== ENCOUNTER 2024-02-19 08:47 | Outpatient (AMB) | payer OTHER, SELFPAY ==
--- NOTE | 2024-02-19 08:55 | MHC.OFFVIS ---
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 Accompanied by: Self / Same As Patient Allergies No Known Allergies Allergy (Verified 02/19/24 08:57) Medication List - Last Reconciled 02/19/24 by Genet Tillman LPN albuterol sulfate 90 mcg/actuation 2 inhalations inhalation Q6H PRN 30 days albuterol sulfate 2.5 mg (3 mL) inhalation Q6H PRN 30 days amoxicillin-pot clavulanate 875-125 mg 1 tab PO BID 10 days azithromycin 500 mg PO DAILY 5 days benzonatate 200 mg PO BID PRN 30 days [id number]-[id number]-ftmocbxwkc 160-9-4.8 mcg/actuation (Breztri Aerosphere) 2 inhalations inhalation BID 30 days cholecalciferol (vitamin D3) 25 mcg PO DAILY doxycycline hyclate 100 mg PO BID estradiol (Yuvafem) 10 mcg vaginal 2XW hydrocortisone valerate 0.2% 1 appl topical BID PRN [lambdapil PO 1XD] magnesium 250 mg PO DAILY meloxicam 15 mg PO DAILY PRN montelukast 10 mg PO BEDTIME PRN prednisone PO daily; Take 4 tabs x 3 days, then 3 tabs x 3 days, then 2 tabs daily x 3 days, then 1 tab x 3 days to complete. 12 days prednisone 40 mg PO DAILY prednisone PO daily; Take 2 tabs daily x 7 days, then 1 tab daily x 21 days 28 days pseudoephedrine HCl ER 120 mg PO Q12H 30 days HPI Comments Details: The patient is a 63-year-old woman with a known history of asthma in addition to acute fibrinous organizing pneumonia (AFOP) biopsy-proven. She did require prednisone and also CellCept for a duration of time. Subsequently was able to wean off. She has been doing well and have not seen her in the last couple years. She still complains of dyspnea on exertion. Moderate severity. Does have some wheezing at times. She does have a rescue inhaler that she uses. She used to have Symbicort HFA has not been using it regularly. She has not had any imaging studies of breathing studies in some time. Also to note her hypersensitivity panel had been positive in the past. She did have mold issues in the bathroom which was felt to be potentially contributing to her underlying interstitial process. She has normal lung mechanics which is reassuring. The patient was supposed to have an x-ray. crackles which is likely all related to her surgery. No significant wheezing. We did talk about decreasing the amount of Symbicort to 1 dilation and also she can use the Singulair seasonally. 03/13/2023 the patient is here for a pulmonary follow-up visit. Unfortunately the patient became ill the last couple days. She is been noticing hoarseness and also chest congestion and some shortness of breath. She is very concerned because of her history of interstitial lung disease and acute respiratory failure. I did reassure her that appears that she does have a viral syndrome. She has not tested for any viruses so therefore we did do a viral swab in the office for flu, RSV and COVID-19. On examination she does have some rhonchi and some wheezing on examination. She has been using the Symbicort twice a day which is reassuring she also has a rescue inhaler will make sure that she has 1 up today. The patient also did have pulmonary function studies which we personally reviewed and appeared to be reassuring without any evidence of any obstructive nor restrictive ventilatory defects. She had this study done prior to getting sick. And also prior to getting sick she did have a chest x-ray that was also without any acute disease. I did reassure her that based on those findings I do not believe she has any active interstitial lung disease and just an acute viral illness. The patient will be treating with medication. if she is no better by next week she will call and will do additional testing then. 09/18/2023 the patient is here for a pulmonary follow-up visit. The patient overall has been doing better. She did have the flu back in March and exacerbated her asthma. Currently she is back to her baseline. She is using Symbicort that she still feels some chest tightness at times. She has not had to use Singulair. The patient has been trying to increase her exercise activity. We did review her last chest x-ray that she had back in the fall of 2022 demonstrating no acute disease. And we also reviewed her PFTs that she had back in 01/30/2023 demonstrating low normal total lung capacity with a mild diffusion impairment. This is a slight decreased when compared to 2019 2. Will go ahead and repeat her PFTs in a year. Patient should also have a chest x-ray as well. Will go ahead and also try to optimize respiratory therapy by switching her over to Breztri. If the patient has any worsening issues or any new issues she will call for an earlier assessment. 01/22/2024 the patient is here for sick visit. She has been sick now for about 2 weeks. She started developing a cough. Positive sick contacts at home. Started developing sore throat and also some tenderness over the cervical lymph nodes. Subsequently after that she started developing a cough. She went to an urgent care. The patient was given a course of doxycycline and a short course of prednisone. She did not feel better. The patient went to her primary care doctor's office. She was evaluated there. She was kept on the doxy and her prednisone was increased to 60 mg. She has been weaning down. She has not seen significant improvement. She feels that she has a significant productive cough. Moderate severity. She can not sleep with it. She has tried [id number] allergy medications without any relief. In the office she has significant rhonchi and wheezing. She is getting nebulizer treatment now. She does have evidence of sinusitis and also bronchitis. The patient did have a chest x-ray which I personally reviewed demonstrating no acute disease. We are awaiting final read. 02/12/2024 the patient is here for a follow-up visit. She developed worsening respiratory symptoms since we last spoke. apparently she was feeling better and she had a fall and she had a significant hematoma on the right thigh. She went to initially [facility] with a documented a large hematoma. Ultimately she started developing worsening shortness of breath and hypoxia. She was referred to [facility] ER. There she did undergo blood work including a hemoglobin dropping in of 3 g. in addition to that she had a CTA which I personally reviewed demonstrating some haziness suggesting some degree of pneumonitis which was diffuse throughout. No evidence of any pneumonia. She completed the 2nd course of antibiotics. In addition to that now she is having some ear pressure and sinus discomfort. She is down to 10 mg of prednisone. She is using the nebulizer. But she is concerned that she is not significantly better. She does have a pulse ox and sometimes her pulse ox is in the 80s. On exam she still has significant wheezing on exam. She is going to need to stay on the prednisone. Also some evidence of fluid in the middle ear. Will request additional blood work to assess her pneumonitis. Could be postviral although she does have a history of a fall likely hypersensitivity pneumonitis. We did try to collect a sputum sample in the office but we were not able to. Will go ahead and request blood work. If the patient is not able to provide a sputum sample and if it is still not clear if his symptoms have not improved with this 3rd course of medications then will talk about a bronchoscopy. 02/19/2024 the patient is here for a pulmonary follow-up visit. She started to feel better. Although she still has significant pressure in her right ear and also still having chest congestion. She did complete a course of azithromycin. Prior to that she had Augmentin and also doxycycline. Although, she still moderately congested. Still clearing phlegm. We did try to get a sputum culture but patient was not able to do so. She will bring 1 whenever possible. She has the specimen cup. She still has significant wheezing on exam. Will keep her on 10 mg of prednisone. In the meantime the blood work demonstrated an elevated KRISTOPHER and also a positive CCP. She started history of interstitial lung disease before and now her last CT scan also evidence of pneumonitis. Therefore, it is not unreasonable to consider potential connective tissue disease interstitial lung disease. Although the only thing that does not quite go along with that she is still very congested. Therefore I feel compelled to give her another course of antibiotics with Levaquin to make sure we treat every organism possible that could be contributing to her symptoms. Will try to get a sputum culture. If the patient is no better on the small dose of prednisone and also the levofloxacin then a bronchoscopy will be warranted. In the meantime will make a referral to the creative developer. The patient continues to use a nebulizer in continues to use the Breztri inhaler. She continues on Sudafed which is helping with her sinuses. At this time she will try 5 days of Afrin to see if this provides further relief of the pressure of her middle ear. We all these medications is affecting her sleep. She can use him Ambien as needed for sleep. Will follow-up in couple weeks. [facility] Medical History (Updated 02/19/24 @ 10:20 by Boaz Nicole MD) Otitis media Bronchopneumonia Pneumonitis Viral syndrome H/O interstitial lung disease Hypersensitivity pneumonitis Organizing pneumonia Asthma Social History (Updated 02/19/24 @ 08:58 by Genet Tillman LPN) Patient Tobacco Use Status: Never used Tobacco Review of Systems Const Denies chills, Reports fatigue, Denies malaise and Denies night sweats ENT Denies lip swelling, Denies mouth pain, Reports nasal congestion and Denies tongue swelling Card Denies chest pain and Reports dyspnea on exertion Resp Reports chest congestion, Reports cough, Denies hemoptysis, Reports dyspnea on exertion and Reports wheezing GI Denies abdominal pain Musc Denies no additional complaints Neuro Denies Neuro-related abnormal movements Psych Denies no additional complaints Endo Reports fatigue Hermes/Lymph Denies easy bleeding and Denies lymphadenopathy Aller/Immun Denies lip swelling, Denies tongue swelling and Reports wheezing Physical Exam Vital Signs: Last Vital Signs Pulse 85 02/19/24 08:56 Pulse Ox 99 02/19/24 08:56 Oxygen Delivery Method Room Air 02/19/24 08:56 Const General: comfortable and alert HEENT Head: Yes normocephalic Ears: TM abnormal wth effusion and with fluid behind the TM General nose exam: Normal external nose present Eyes Pupils: Equal, round and reactive pupils present Neck Neck: Yes normal visual inspection, Yes full ROM and Yes no lymphadenopathy Chest Chest palpation & inspection: normal inspection of the chest Resp Effort & Inspection: normal respiratory effort, audible wheezes, Actively coughing and prolonged expiratory phase Auscultation: rhonchi, wheezes and diminished lung sounds Cardio Rate: regular rate Rhythm: regular rhythm Heart sounds: S1 normal heart sound present and S2 normal heart sound present GI Palpation (GI): Soft to palpation and nontender Auscultation: normal bowel sounds General: Yes no CVA tenderness Back/Spine/Pelvis Back: no CVA tenderness Skin General skin exam: rashes and/or lesions noted Neuro Cranial nerves: Yes Equal, round and reactive pupils present Results Reviewed Results Reviewed: Assessment & Plan Assessment & Plan (1) Positive anti-CCP test: Code(s): R76.8 - Other specified abnormal immunological findings in serum Category: Medical (2) KRISTOPHER positive: Code(s): R76.8 - Other specified abnormal immunological findings in serum Category: Medical (3) Pneumonitis: Code(s): J98.4 - Other disorders of lung Category: Medical (4) Bronchopneumonia: Code(s): J18.0 - Bronchopneumonia, unspecified organism Category: Medical (5) Asthma: Code(s): J45.909 - Unspecified asthma, uncomplicated Category: Medical Qualifiers: Asthma complication type: with acute exacerbation Asthma persistence: persistent Asthma severity: moderate Qualified Code(s): J45.41 - Moderate persistent asthma with (acute) exacerbation Plan: Short-acting beta agonist as needed (6) Bronchitis: Code(s): J40 - Bronchitis, not specified as acute or chronic Category: Medical (7) Hypersensitivity pneumonitis: Code(s): J67.9 - Hypersensitivity pneumonitis due to unspecified organic dust Category: Medical Plan: Avoiding mold (8) H/O interstitial lung disease: Comment: AFOB Code(s): Z87.09 - Personal history of other diseases of the respiratory system Category: Medical (9) Otitis media: Code(s): H66.90 - Otitis media, unspecified, unspecified ear Category: Medical Qualifiers: Chronicity: unspecified Laterality: bilateral Otitis media type: serous Qualified Code(s): H65.93 - Unspecified nonsuppurative otitis media, bilateral Plan completed Azithromycin start Levaquin continue prednisone taper nebulizer continue Breztri MARY as needed pseudophed sputum culture if able consider bronchoscopy Rheumatology ab tirado for sleep F/U 2-3 weeks Orders: Referrals Rheumatology Referral R76.8 - Other specified abnormal immunological findings in serum Medications: New oxymetazoline 0.05% (Afrin Sinus (oxymetazoline)) 2 sprays intranasal Q12H PRN 22 mL 0RF nasal congestion 5 days prednisone 10 mg PO DAILY 30 tabs 1RF 30 days levofloxacin 500 mg PO DAILY 14 tabs 0RF 14 days zolpidem 10 mg PO BEDTIME PRN 30 tabs 3RF sleep 30 days zolpidem 10 mg PO BEDTIME 30 tabs 3RF sleep 30 days Coding Level of Care Code Est Pt Level 5 (25619) Diagnoses Positive anti-CCP test R76.8 KRISTOPHER positive R76.8 Pneumonitis J98.4 Bronchopneumonia J18.0 Moderate persistent asthma with acute exacerbation J45.41 Asthma complication type: with acute exacerbation Asthma persistence: persistent Asthma severity: moderate Bronchitis J40 Hypersensitivity pneumonitis J67.9 H/O interstitial lung disease Z87.09 Bilateral serous otitis media, unspecified chronicity H65.93 Chronicity: unspecified Laterality: bilateral Otitis media type: serous Time Spent (min) 35
[2024-02-19 08:56] VITALS: PULSE 85; O2SAT 99
== END 2024-02-19 09:27 | disposition home or self-care (01) ==
PROVIDERS: PCP Internal Medicine; Visit Provider Hospitalist
DX: R76.8 Other specified abnormal immunological findings in serum (principal); J98.4 Other disorders of lung; J18.0 Bronchopneumonia, unspecified organism; J45.41 Moderate persistent asthma with (acute) exacerbation; J67.9 Hypersensitivity pneumonitis due to unspecified organic dust; Z87.09 Personal history of other diseases of the respiratory system; H65.93 Unspecified nonsuppurative otitis media, bilateral
CPT/HCPCS: 99215

== ENCOUNTER 2024-03-04 08:48 | Outpatient (AMB) | payer OTHER, SELFPAY ==
[2024-03-04 08:50] VITALS: BP 102/78; PULSE 68; O2SAT 99
--- NOTE | 2024-03-04 08:50 | MHC.OFFVIS ---
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 She did require prednisone and also CellCept for a duration of time. Subsequently was able to wean off. She has been doing well and have not seen her in the last couple years. She still complains of dyspnea on exertion. Moderate severity. Does have some wheezing at times. She does have a rescue inhaler that she uses. She used to have Symbicort HFA has not been using it regularly. She has not had any imaging studies of breathing studies in some time. Also to note her hypersensitivity panel had been positive in the past. She did have mold issues in the bathroom which was felt to be potentially contributing to her underlying interstitial process. She has normal lung mechanics which is reassuring. The patient was supposed to have an x-ray. crackles which is likely all related to her surgery. No significant wheezing. We did talk about decreasing the amount of Symbicort to 1 dilation and also she can use the Singulair seasonally. 03/13/2023 the patient is here for a pulmonary follow-up visit. Unfortunately the patient became ill the last couple days. She is been noticing hoarseness and also chest congestion and some shortness of breath. She is very concerned because of her history of interstitial lung disease and acute respiratory failure. I did reassure her that appears that she does have a viral syndrome. She has not tested for any viruses so therefore we did do a viral swab in the office for flu, RSV and COVID-19. On examination she does have some rhonchi and some wheezing on examination. She has been using the Symbicort twice a day which is reassuring she also has a rescue inhaler will make sure that she has 1 up today. The patient also did have pulmonary function studies which we personally reviewed and appeared to be reassuring without any evidence of any obstructive nor restrictive ventilatory defects. She had this study done prior to getting sick. And also prior to getting sick she did have a chest x-ray that was also without any acute disease. I did reassure her that based on those findings I do not believe she has any active interstitial lung disease and just an acute viral illness. The patient will be treating with medication. if she is no better by next week she will call and will do additional testing then. 09/18/2023 the patient is here for a pulmonary follow-up visit. The patient overall has been doing better. She did have the flu back in March and exacerbated her asthma. Currently she is back to her baseline. She is using Symbicort that she still feels some chest tightness at times. She has not had to use Singulair. The patient has been trying to increase her exercise activity. We did review her last chest x-ray that she had back in the fall of 2022 demonstrating no acute disease. And we also reviewed her PFTs that she had back in 01/30/2023 demonstrating low normal total lung capacity with a mild diffusion impairment. This is a slight decreased when compared to 2019 2. Will go ahead and repeat her PFTs in a year. Patient should also have a chest x-ray as well. Will go ahead and also try to optimize respiratory therapy by switching her over to Breztri. If the patient has any worsening issues or any new issues she will call for an earlier assessment. 01/22/2024 the patient is here for sick visit. She has been sick now for about 2 weeks. She started developing a cough. Positive sick contacts at home. Started developing sore throat and also some tenderness over the cervical lymph nodes. Subsequently after that she started developing a cough. She went to an urgent care. The patient was given a course of doxycycline and a short course of prednisone. She did not feel better. The patient went to her primary care doctor's office. She was evaluated there. She was kept on the doxy and her prednisone was increased to 60 mg. She has been weaning down. She has not seen significant improvement. She feels that she has a significant productive cough. Moderate severity. She can not sleep with it. She has tried [id number] allergy medications without any relief. In the office she has significant rhonchi and wheezing. She is getting nebulizer treatment now. She does have evidence of sinusitis and also bronchitis. The patient did have a chest x-ray which I personally reviewed demonstrating no acute disease. We are awaiting final read. 02/12/2024 the patient is here for a follow-up visit. She developed worsening respiratory symptoms since we last spoke. apparently she was feeling better and she had a fall and she had a significant hematoma on the right thigh. She went to [facility] with a documented a large hematoma. Ultimately she started developing worsening shortness of breath and hypoxia. She was referred to [facility] ER. There she did undergo blood work including a hemoglobin dropping in of 3 g. in addition to that she had a CTA which I personally reviewed demonstrating some haziness suggesting some degree of pneumonitis which was diffuse throughout. No evidence of any pneumonia. She completed the 2nd course of antibiotics. In addition to that now she is having some ear pressure and sinus discomfort. She is down to 10 mg of prednisone. She is using the nebulizer. But she is concerned that she is not significantly better. She does have a pulse ox and sometimes her pulse ox is in the 80s. On exam she still has significant wheezing on exam. She is going to need to stay on the prednisone. Also some evidence of fluid in the middle ear. Will request additional blood work to assess her pneumonitis. Could be postviral although she does have a history of a fall likely hypersensitivity pneumonitis. We did try to collect a sputum sample in the office but we were not able to. Will go ahead and request blood work. If the patient is not able to provide a sputum sample and if it is still not clear if his symptoms have not improved with this 3rd course of medications then will talk about a bronchoscopy. 02/19/2024 the patient is here for a pulmonary follow-up visit. She started to feel better. Although she still has significant pressure in her right ear and also still having chest congestion. She did complete a course of azithromycin. Prior to that she had Augmentin and also doxycycline. Although, she still moderately congested. Still clearing phlegm. We did try to get a sputum culture but patient was not able to do so. She will bring 1 whenever possible. She has the specimen cup. She still has significant wheezing on exam. Will keep her on 10 mg of prednisone. In the meantime the blood work demonstrated an elevated KRISTOPHER and also a positive CCP. She started history of interstitial lung disease before and now her last CT scan also evidence of pneumonitis. Therefore, it is not unreasonable to consider potential connective tissue disease interstitial lung disease. Although the only thing that does not quite go along with that she is still very congested. Therefore I feel compelled to give her another course of antibiotics with Levaquin to make sure we treat every organism possible that could be contributing to her symptoms. Will try to get a sputum culture. If the patient is no better on the small dose of prednisone and also the levofloxacin then a bronchoscopy will be warranted. In the meantime will make a referral to the manager export. The patient continues to use a nebulizer in continues to use the Breztri inhaler. She continues on Sudafed which is helping with her sinuses. At this time she will try 5 days of Afrin to see if this provides further relief of the pressure of her middle ear. We all these medications is affecting her sleep. She can use him Ambien as needed for sleep. Will follow-up in couple weeks. 04/03/2024 the patient is here for pulmonary follow-up visit. She is feeling better. She is down to 10 mg of prednisone. She is using the Breztri inhaler once a day. She is also using the nebulizer once a day. She is still having some chest congestion but much less. Difficult to expectorate at this time. Her ears still bothering her. She completed a course of Levaquin actually today. Therefore, will keep her off antibiotics. Unfortunately she was not able to provide a sputum culture. Will plan to taper down the prednisone further. The patient will increase her Breztri 2 twice a day. Her ear still bothering her specially the right 1. Feels full and is still dull in appearance. Therefore, she is going to start nasal rinsing continue the Sudafed and will be referred to ENT. Denies any significant rashes and she does have some joint pains but not the typical small joints. She does have a referral to Rheumatology pending. Will readdress that depending how her x-ray looks like during her next visit. [facility] Medical History (Updated 02/19/24 @ 10:20 by Boaz Nicole MD) Otitis media Bronchopneumonia Pneumonitis Viral syndrome H/O interstitial lung disease Hypersensitivity pneumonitis Organizing pneumonia Asthma Social History (Updated 02/19/24 @ 08:58 by Genet Tillman LPN) Patient Tobacco Use Status: Never used Tobacco Review of Systems Const Denies chills, Denies fatigue, Denies malaise and Denies night sweats ENT Reports otalgia, Denies lip swelling, Denies mouth pain, Reports nasal congestion and Denies tongue swelling Card Denies chest pain and Reports dyspnea on exertion Resp Reports chest congestion, Reports cough, Denies hemoptysis, Reports dyspnea on exertion and Reports wheezing GI Denies abdominal pain Musc Denies no additional complaints Neuro Denies Neuro-related abnormal movements Psych Denies no additional complaints Endo Denies fatigue Hermes/Lymph Denies easy bleeding and Denies lymphadenopathy Aller/Immun Denies lip swelling, Denies tongue swelling and Reports wheezing Physical Exam Vital Signs: Last Vital Signs Pulse 68 03/04/24 08:50 BP 102/78 03/04/24 08:50 Pulse Ox 99 03/04/24 08:50 Oxygen Delivery Method Room Air 03/04/24 08:50 Const General: comfortable and alert HEENT Head: Yes normocephalic Ears: TM abnormal wth effusion and with fluid behind the TM General nose exam: Normal external nose present Eyes Pupils: Equal, round and reactive pupils present Neck Neck: Yes normal visual inspection, Yes full ROM and Yes no lymphadenopathy Chest Chest palpation & inspection: normal inspection of the chest Resp Effort & Inspection: normal respiratory effort and Actively coughing Auscultation: rhonchi and diminished lung sounds Cardio Rate: regular rate Rhythm: regular rhythm Heart sounds: S1 normal heart sound present and S2 normal heart sound present GI Palpation (GI): Soft to palpation and nontender Auscultation: normal bowel sounds General: Yes no CVA tenderness Back/Spine/Pelvis Back: no CVA tenderness Skin General skin exam: rashes and/or lesions noted Neuro Cranial nerves: Yes Equal, round and reactive pupils present Assessment & Plan Assessment & Plan (1) Positive anti-CCP test: Code(s): R76.8 - Other specified abnormal immunological findings in serum Category: Medical (2) KRISTOPHER positive: Code(s): R76.8 - Other specified abnormal immunological findings in serum Category: Medical (3) Pneumonitis: Code(s): J98.4 - Other disorders of lung Category: Medical (4) Bronchopneumonia: Code(s): J18.0 - Bronchopneumonia, unspecified organism Category: Medical (5) Asthma: Code(s): J45.909 - Unspecified asthma, uncomplicated Category: Medical Qualifiers: Asthma complication type: with acute exacerbation Asthma persistence: persistent Asthma severity: moderate Qualified Code(s): J45.41 - Moderate persistent asthma with (acute) exacerbation Plan: Short-acting beta agonist as needed (6) Bronchitis: Code(s): J40 - Bronchitis, not specified as acute or chronic Category: Medical (7) Hypersensitivity pneumonitis: Code(s): J67.9 - Hypersensitivity pneumonitis due to unspecified organic dust Category: Medical Plan: Avoiding mold (8) H/O interstitial lung disease: Comment: AFOB Code(s): Z87.09 - Personal history of other diseases of the respiratory system Category: Medical (9) Otitis media: Code(s): H66.90 - Otitis media, unspecified, unspecified ear Category: Medical Qualifiers: Chronicity: unspecified Laterality: bilateral Otitis media type: serous Qualified Code(s): H65.93 - Unspecified nonsuppurative otitis media, bilateral Plan completed Levaquin continue prednisone taper 10mg->5mg nebulizer acapella valve for CPT continue Breztri MARY as needed pseudophed as needed sputum culture if able consider bronchoscopy Rheumatology ab [place] for sleep ENT referral CXR F/U 3-4 weeks Orders: Orders XR chest 2V 03/04/24 J98.4 - Other disorders of lung Referrals Ear/Nose/Throat Referral H65.93 - Unspecified nonsuppurative otitis media, bilateral Medications: New prednisone 5 mg PO DAILY 30 tabs 0RF 30 days Refilled albuterol sulfate 2.5 mg (3 mL) inhalation Q6H PRN 90 mL 11RF shortness of breath or wheezing 30 days Coding Level of Care Code Est Pt Level 4 (37165) Complex EM visit Add On G2211 Diagnoses Positive anti-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
== END 2024-03-04 09:28 | disposition home or self-care (01) ==
PROVIDERS: PCP Internal Medicine; Visit Provider Hospitalist
DX: R76.8 Other specified abnormal immunological findings in serum (principal); J98.4 Other disorders of lung; J18.0 Bronchopneumonia, unspecified organism; J45.41 Moderate persistent asthma with (acute) exacerbation; J40 Bronchitis, not specified as acute or chronic; J67.9 Hypersensitivity pneumonitis due to unspecified organic dust; Z87.09 Personal history of other diseases of the respiratory system; H65.93 Unspecified nonsuppurative otitis media, bilateral
CPT/HCPCS: 99214

== ENCOUNTER → 2024-03-04 08:48 | Outpatient (BNVA) | payer OTHER, SELFPAY | PROVIDERS: PCP Internal Medicine; Visit Provider Hospitalist ==

== ENCOUNTER 2024-03-25 11:20 | Outpatient (REF) | payer OTHER, SELFPAY | END 2024-03-25 11:21 | disposition home or self-care (01) | LOC: HO.XRAY 11:20 | PROVIDERS: PCP Internal Medicine; Visit Provider Hospitalist | DX: J98.4 Other disorders of lung (principal) | CPT/HCPCS: 71046 ==

== ENCOUNTER 2024-03-25 11:20 | Outpatient (AMB) | payer OTHER, SELFPAY ==
[2024-03-25 11:23] VITALS: BP 124/82; PULSE 63; O2SAT 100
--- NOTE | 2024-03-25 11:23 | A.OFFVIS_ITS ---
Vital Signs 03/25/24 11:23 Height 5 ft 1 in BP 124/82 Blood Pressure Location Lt brachial Position Sitting Pulse 63 Pulse Source Pulse Oximeter Pulse Oximetry (%) 100 Oxygen Delivery Method Room Air Intake Visit Reasons: Cough Service Assistant Required: No Allergies No Known Allergies Allergy (Verified 03/25/24 11:25) HPI Comments Details: The patient is a 63-year-old woman with a known history of asthma in addition to acute fibrinous organizing pneumonia (AFOP) biopsy-proven. She did require prednisone and also CellCept for a duration of time. Subsequently was able to wean off. She has been doing well and have not seen her in the last couple years. She still complains of dyspnea on exertion. Moderate severity. Does have some wheezing at times. She does have a rescue inhaler that she uses. She used to have Symbicort HFA has not been using it regularly. She has not had any imaging studies of breathing studies in some time. Also to note her hyper sensitivity panel had been positive in the past. She did have mold issues in the bathroom which was felt to be potentially contributing to her underlying interstitial process. She has normal lung mechanics which is reassuring. The patient was supposed to have an x-ray. crackles which is likely all related to her surgery. No significant wheezing. We did talk about decreasing the amount of Symbicort to 1 dilation and also she can use the Singulair seasonally. 03/13/2023 the patient is here for a pulmonary follow-up visit. Unfortunately the patient became ill the last couple days. She is been noticing hoarseness and also chest congestion and some shortness of breath. She is very concerned because of her history of interstitial lung disease and acute respiratory failure. I did reassure her that appears that she does have a viral syndrome. She has not tested for any viruses so therefore we did do a viral swab in the office for flu, RSV and COVID-19. On examination she does have some rhonchi and some wheezing on examination. She has been using the Symbicort twice a day which is reassuring she also has a rescue inhaler will make sure that she has 1 up today. The patient also did have pulmonary function studies which we personally reviewed and appeared to be reassuring without any evidence of any obstructive nor restrictive ventilatory defects. She had this study done prior to getting sick. And also prior to getting sick she did have a chest x-ray that was also without any acute disease. I did reassure her that based on those findings I do not believe she has any active interstitial lung disease and just an acute viral illness. The patient will be treating with medication. if she is no better by next week she will call and will do additional testing then. 09/18/2023 the patient is here for a pulmonary follow-up visit. The patient overall has been doing better. She did have the flu back in March and exacerbated her asthma. Currently she is back to her baseline. She is using Symbicort that she still feels some chest tightness at times. She has not had to use Singulair. The patient has been trying to increase her exercise activity. We did review her last chest x-ray that she had back in the fall of 2022 demonstrating no acute disease. And we also reviewed her PFTs that she had back in 01/30/2023 demonstrating low normal total lung capacity with a mild diffusion impairment. This is a slight decreased when compared to 2019 2. Will go ahead and repeat her PFTs in a year. Patient should also have a chest x-ray as well. Will go ahead and also try to optimize respiratory therapy by switching her over to Breztri. If the patient has any worsening issues or any new issues she will call for an earlier assessment. 01/22/2024 the patient is here for sick visit. She has been sick now for about 2 weeks. She started developing a cough. Positive sick contacts at home. Started developing sore throat and also some tenderness over the cervical lymph nodes. Subsequently after that she started developing a cough. She went to an urgent care. The patient was given a course of doxycycline and a short course of prednisone. She did not feel better. The patient went to her primary care doctor's office. She was evaluated there. She was kept on the doxy and her prednisone was increased to 60 mg. She has been weaning down. She has not seen significant improvement. She feels that she has a significant productive cough. Moderate severity. She can not sleep with it. She has tried jxwj-rbs-koxamdo allergy medications without any relief. In the office she has significant rhonchi and wheezing. She is getting nebulizer treatment now. She does have evidence of sinusitis and also bronchitis. The patient did have a chest x-ray which I personally reviewed demonstrating no acute disease. We are awaiting final read. 02/12/2024 the patient is here for a follow-up visit. She developed worsening respiratory symptoms since we last spoke. apparently she was feeling better and she had a fall and she had a significant hematoma on the right thigh. She went to initially [facility] with a documented a large hematoma. Ultimately she started developing worsening shortness of breath and hypoxia. She was referred to [facility] ER. There she did undergo blood work including a hemoglobin dropping in of 3 g. in addition to that she had a CTA which I personally reviewed demonstrating some haziness suggesting some degree of pneumonitis which was diffuse throughout. No evidence of any pneumonia. She completed the 2nd course of antibiotics. In addition to that now she is having some ear pressure and sinus discomfort. She is down to 10 mg of prednisone. She is using the nebulizer. But she is concerned that she is not significantly better. She does have a pulse ox and sometimes her pulse ox is in the 80s. On exam she still has significant wheezing on exam. She is going to need to stay on the prednisone. Also some evidence of fluid in the middle ear. Will request additional blood work to assess her pneumonitis. Could be postviral although she does have a history of a fall likely hypersensitivity pneumonitis. We did try to collect a sputum sample in the office but we were not able to. Will go ahead and request blood work. If the patient is not able to provide a sputum sample and if it is still not clear if his symptoms have not improved with this 3rd course of medications then will talk about a bronchoscopy. 02/19/2024 the patient is here for a pulmonary follow-up visit. She started to feel better. Although she still has significant pressure in her right ear and also still having chest congestion. She did complete a course of azithromycin. Prior to that she had Augmentin and also doxycycline. Although, she still moderately congested. Still clearing phlegm. We did try to get a sputum culture but patient was not able to do so. She will bring 1 whenever possible. She has the specimen cup. She still has significant wheezing on exam. Will keep her on 10 mg of prednisone. In the meantime the blood work demonstrated an elevated KRISTOPHER and also a positive CCP. She started history of interstitial lung disease before and now her last CT scan also evidence of pneumonitis. Therefore, it is not unreasonable to consider potential connective tissue disease interstitial lung disease. Although the only thing that does not quite go along with that she is still very congested. Therefore I feel compelled to give her another course of antibiotics with Levaquin to make sure we treat every organism possible that could be contributing to her symptoms. Will try to get a sputum culture. If the patient is no better on the small dose of prednisone and also the levofloxacin then a bronchoscopy will be warranted. In the meantime will make a referral to the senior informatica developer. The patient continues to use a nebulizer in continues to use the Breztri inhaler. She continues on Sudafed which is helping with her sinuses. At this time she will try 5 days of Afrin to see if this provides further relief of the pressure of her middle ear. We all these medications is affecting her sleep. She can use him Ambien as needed for sleep. Will follow-up in couple weeks. 04/03/2024 the patient is here for pulmonary follow-up visit. She is feeling better. She is down to 10 mg of prednisone. She is using the Breztri inhaler once a day. She is also using the nebulizer once a day. She is still having some chest congestion but much less. Difficult to expectorate at this time. Her ears still bothering her. She completed a course of Levaquin actually today. Therefore, will keep her off antibiotics. Unfortunately she was not able to provide a sputum culture. Will plan to taper down the prednisone further. The patient will increase her Breztri 2 twice a day. Her ear still bothering her specially the right 1. Feels full and is still dull in appearance. Therefore, she is going to start nasal rinsing continue the Sudafed and will be referred to ENT. Denies any significant rashes and she does have some joint pains but not the typical small joints. She does have a referral to Rheumatology pending. Will readdress that depending how her x-ray looks like during her next visit. 03/25/2024 the patient is here for a pulmonary follow-up visit. Overall she is doing a little better. She is down to 5 mg every other day of prednisone. She continues on the Breztri twice a day. In addition to that she had been using the nebulizer once a day but she stopped because is too cumbersome for her sometimes. She is currently dealing with her mom in hospice and has been difficult. The patient still having issues with her right ear she can not hear well from that ear in appears to have some fluid behind it and also some slight erythema. She has been on multiple courses of antibiotics already. Will try some ear drops uses see if this can provide some relief. She is waiting for an ENT evaluation. I wonder if she can have a laryngoscopy done to see if there is any blockage of the eustachian 2. Also she is having some hoarseness in that would help just to see what is going on with the vocal cords. She still coughing up some mucus although less. She has completed multiple courses of antibiotics. My suspicion is that she has not smoldering organism resulting in the ongoing mucus production. This could include stenotrophomonas or Pseudomonas. Will go ahead and request a chest x-ray at this time. If she continues with the chest congestion by the time she returns in several weeks will plan for bronchoscopy. For now though she is going to try to wean off the prednisone and will continue on the inhaler although I will switch her over to Alvesco and Bevespi with the hope that the Alvesco does not irritate so much vocal cords to Bravo hoarseness. Still no evidence of any active pneumonitis or airspace disease on the x-rays. Her CT scan that she had a [employer] was also reassuring although did have some slight areas of inflammation. We did review her blood work no significant allergies with a normal IgE level and a normal eosinophil level so therefore she is not a candidate for most biologics although she is still a candidate for test prior if she continues have the wheezing. She is also a candidate for Daliresp. Which would be a reasonable option to treat her for chronic bronchitis. This will also help especially if she is worsens after stopping the prednisone. [facility] Medical History (Updated 02/19/24 @ 10:20 by Boaz Nicole MD) Otitis media Bronchopneumonia Pneumonitis Viral syndrome H/O interstitial lung disease Hypersensitivity pneumonitis Organizing pneumonia Asthma Social History Patient Tobacco Use Status: Never used Tobacco Review of Systems Const Denies chills, Denies fatigue, Denies malaise and Denies night sweats ENT Reports otalgia, Reports hoarseness, Denies lip swelling, Denies mouth pain, Reports nasal congestion and Denies tongue swelling Card Denies chest pain and Reports dyspnea on exertion Resp Reports chest congestion, Reports cough, Denies hemoptysis, Reports dyspnea on exertion and Reports wheezing GI Denies abdominal pain Musc Denies no additional complaints Neuro Denies Neuro-related abnormal movements Psych Denies no additional complaints Endo Denies fatigue Hermes/Lymph Denies easy bleeding and Denies lymphadenopathy Aller/Immun Denies lip swelling, Denies tongue swelling and Reports wheezing Physical Exam Vital Signs: Last Vital Signs Pulse 63 03/25/24 11:23 BP 124/82 03/25/24 11:23 Pulse Ox 100 03/25/24 11:23 Oxygen Delivery Method Room Air 03/25/24 11:23 Const General: comfortable and alert HEENT Head: Yes normocephalic Ears: Abnormal EAC present erythema and TM abnormal wth effusion and with fluid behind the TM General nose exam: Normal external nose present Eyes Pupils: Equal, round and reactive pupils present Neck Neck: Yes normal visual inspection, Yes full ROM and Yes no lymphadenopathy Chest Chest palpation & inspection: normal inspection of the chest Resp Effort & Inspection: normal respiratory effort Auscultation: wheezes and diminished lung sounds Cardio Rate: regular rate Rhythm: regular rhythm Heart sounds: S1 normal heart sound present and S2 normal heart sound present GI Palpation (GI): Soft to palpation and nontender Auscultation: normal bowel sounds General: Yes no CVA tenderness Back/Spine/Pelvis Back: no CVA tenderness Skin General skin exam: rashes and/or lesions noted Neuro Cranial nerves: Yes Equal, round and reactive pupils present Assessment & Plan Assessment & Plan (1) Positive anti-CCP test: Code(s): R76.8 - Other specified abnormal immunological findings in serum Category: Medical (2) KRISTOPHER positive: Code(s): R76.8 - Other specified abnormal immunological findings in serum Category: Medical (3) Pneumonitis: Code(s): J98.4 - Other disorders of lung Category: Medical (4) Asthma: Code(s): J45.909 - Unspecified asthma, uncomplicated Category: Medical Qualifiers: Asthma complication type: with acute exacerbation Asthma persistence: persistent Asthma severity: moderate Qualified Code(s): J45.41 - Moderate persistent asthma with (acute) exacerbation Plan: Short-acting beta agonist as needed (5) Bronchitis: Code(s): J40 - Bronchitis, not specified as acute or chronic Category: Medical (6) Hypersensitivity pneumonitis: Code(s): J67.9 - Hypersensitivity pneumonitis due to unspecified organic dust Category: Medical Plan: Avoiding mold (7) H/O interstitial lung disease: Comment: AFOB Code(s): Z87.09 - Personal history of other diseases of the respiratory system Category: Medical (8) Otitis media: Code(s): H66.90 - Otitis media, unspecified, unspecified ear Category: Medical Qualifiers: Chronicity: unspecified Laterality: bilateral Otitis media type: serous Qualified Code(s): H65.93 - Unspecified nonsuppurative otitis media, bilateral Plan stop prednisone taper 5mg->off nebulizer as needed acapella valve for CPT continue Breztri with spacer BID MARY as needed pseudophed as needed sputum culture if able consider bronchoscopy Rheumatology eval-will refer to [facility] for sleep ENT referral in April. Trial ear drops for persistent erythema of external cannal and TM CXR better F/U 3-4 weeks Medications: New ciprofloxacin-hydrocortisone 0.2-1 % (Cipro HC) 3 drps otic (ear) right BID 10 mL 0RF 7 days ucekwxht-ameimhlce-VP 3.5-10,000-1 mg/mL-unit/mL-% 4 drps otic (ear) right Q8H 10 mL 0RF 7 days kznooadu-qoqlvx-FH-thonzonium 3.3-3-10-0.5 mg/mL (Cortisporin-TC) 4 drps otic (ear) right TID 10 mL 0RF 10 days ofloxacin 0.3% 5 drps otic (ear) right Q12H 10 mL 0RF 14 days Coding Level of Care Code Est Pt Level 4 (23191) Diagnoses Positive anti-CCP test R76.8 KRISTOPHER positive R76.8 Pneumonitis J98.4 Moderate persistent asthma with acute exacerbation J45.41 Asthma complication type: with acute exacerbation Asthma persistence: persistent Asthma severity: moderate Bronchitis J40 Hypersensitivity pneumonitis J67.9 H/O interstitial lung disease Z87.09 Bilateral serous otitis media, unspecified chronicity H65.93 Chronicity: unspecified Laterality: bilateral Otitis media type: serous Time Spent (min) 20
== END 2024-03-25 11:57 | disposition home or self-care (01) ==
PROVIDERS: PCP Internal Medicine; Visit Provider Hospitalist
DX: R76.8 Other specified abnormal immunological findings in serum (principal); J98.4 Other disorders of lung; J45.41 Moderate persistent asthma with (acute) exacerbation; J40 Bronchitis, not specified as acute or chronic; J67.9 Hypersensitivity pneumonitis due to unspecified organic dust; Z87.09 Personal history of other diseases of the respiratory system; H65.93 Unspecified nonsuppurative otitis media, bilateral
CPT/HCPCS: 99214

== ENCOUNTER → 2024-03-25 12:04 | Outpatient (BNV) | payer OTHER, SELFPAY | PROVIDERS: PCP Internal Medicine; Visit Provider Radiology Diagnostic Radiology | DX: J98.4 Other disorders of lung (principal) | CPT/HCPCS: 71046 ==

== ENCOUNTER 2024-05-02 09:57 | Outpatient (REF) | payer OTHER, SELFPAY ==
--- NOTE | ~2024-05-02 | CT_ITS ---
EXAMINATION: CT CHEST WITHOUT IV CONTRAST INDICATION: R91.1 - Solitary pulmonary nodule COMPARISON: Correlation is made with chest x-rays dated 03/25/2024 and 02/12/2024. TECHNIQUE: Helical CT scan of the chest was performed without intravenous contrast. Coronal and sagittal reformatted images were generated and reviewed. This CT exam was performed with one or more of the following dose reduction techniques: automated exposure control, adjustment of the mA and/or kV according to patient size, use of iterative reconstruction technique. DLP: 107 mGy-cm CHEST: THYROID: The thyroid is unremarkable. LUNGS:There is biapical pleural and parenchymal scarring. Additional areas of subpleural scarring are noted bilaterally. There is a suture line along the right major fissure. No pulmonary nodules or focal airspace opacities are identified. MEDIASTINUM: There is no mediastinal lymphadenopathy. LYNDA: Evaluation of the hilar regions is limited by lack of intravenous contrast material. CARDIOVASCULATURE: The heart is normal in size. There is no pericardial effusion. The thoracic aorta is normal in caliber. DEGREE OF CORONARY CALCIFICATION: none PLEURA: There is no pleural effusion. No pneumothorax. MAIN AIRWAYS: The mainstem bronchi and proximal branches are patent. AXILLA: There is no axillary lymphadenopathy. BONES AND SOFT TISSUES: Unremarkable UPPER ABDOMEN: There are hypodense foci in the left lobe of the liver measuring up to 1.6 cm in size which may represent cysts. The visualized portions of the spleen and adrenals have an unremarkable appearance. CT/CT chest wo IV con IMPRESSION: Bilateral pulmonary scarring as described. No pulmonary nodules are identified. Electronically signed by: William Mora MD 05/02/2024 10:31 AM [facility]
== END 2024-05-02 09:58 | disposition home or self-care (01) ==
LOC: HO.CT 09:57
PROVIDERS: PCP Internal Medicine; Visit Provider Hospitalist
DX: R91.1 Solitary pulmonary nodule (principal); R93.89 Abnormal findings on diagnostic imaging of other specified body structures
CPT/HCPCS: 71250

== ENCOUNTER → 2024-05-02 09:58 | Outpatient (BNV) | payer OTHER, SELFPAY | PROVIDERS: PCP Internal Medicine; Visit Provider Radiology Diagnostic Radiology | DX: J84.10 Pulmonary fibrosis, unspecified (principal) | CPT/HCPCS: 71250 ==

== ENCOUNTER 2024-05-06 09:37 | Outpatient (AMB) | payer OTHER, SELFPAY ==
[2024-05-06 09:40] VITALS: BP 118/82; PULSE 58; O2SAT 100; BMI 23.5
--- NOTE | 2024-05-06 09:40 | MHC.OFFVIS ---
Vital Signs 05/06/24 09:40 Height 5 ft 1 in Weight 124 lb 8.979 oz BMI 23.5 BP 118/82 Blood Pressure Location Rt brachial Position Sitting Pulse 58 Pulse Source Pulse Oximeter Pulse Oximetry (%) 100 Oxygen Delivery Method Room Air Intake Visit Reasons: Cough Allergies No Known Allergies Allergy (Verified 05/06/24 09:43) HPI Comments Details: The patient is a 63-year-old woman with a known history of asthma in addition to acute fibrinous organizing pneumonia (AFOP) biopsy-proven. She did require prednisone and also CellCept for a duration of time. Subsequently was able to wean off. She has been doing well and have not seen her in the last couple years. She still complains of dyspnea on exertion. Moderate severity. Does have some wheezing at times. She does have a rescue inhaler that she uses. She used to have Symbicort HFA has not been using it regularly. She has not had any imaging studies of breathing studies in some time. Also to note her hypersensitivity panel had been positive in the past. She did have mold issues in the bathroom which was felt to be potentially contributing to her underlying interstitial process. She has normal lung mechanics which is reassuring. The patient was supposed to have an x-ray. crackles which is likely all related to her surgery. No significant wheezing. We did talk about decreasing the amount of Symbicort to 1 dilation and also she can use the Singulair seasonally. 03/13/2023 the patient is here for a pulmonary follow-up visit. Unfortunately the patient became ill the last couple days. She is been noticing hoarseness and also chest congestion and some shortness of breath. She is very concerned because of her history of interstitial lung disease and acute respiratory failure. I did reassure her that appears that she does have a viral syndrome. She has not tested for any viruses so therefore we did do a viral swab in the office for flu, RSV and COVID-19. On examination she does have some rhonchi and some wheezing on examination. She has been using the Symbicort twice a day which is reassuring she also has a rescue inhaler will make sure that she has 1 up today. The patient also did have pulmonary function studies which we personally reviewed and appeared to be reassuring without any evidence of any obstructive nor restrictive ventilatory defects. She had this study done prior to getting sick. And also prior to getting sick she did have a chest x-ray that was also without any acute disease. I did reassure her that based on those findings I do not believe she has any active interstitial lung disease and just an acute viral illness. The patient will be treating with medication. if she is no better by next week she will call and will do additional testing then. 09/18/2023 the patient is here for a pulmonary follow-up visit. The patient overall has been doing better. She did have the flu back in March and exacerbated her asthma. Currently she is back to her baseline. She is using Symbicort that she still feels some chest tightness at times. She has not had to use Singulair. The patient has been trying to increase her exercise activity. We did review her last chest x-ray that she had back in the fall of 2022 demonstrating no acute disease. And we also reviewed her PFTs that she had back in 01/30/2023 demonstrating low normal total lung capacity with a mild diffusion impairment. This is a slight decreased when compared to 2019 2. Will go ahead and repeat her PFTs in a year. Patient should also have a chest x-ray as well. Will go ahead and also try to optimize respiratory therapy by switching her over to Breztri. If the patient has any worsening issues or any new issues she will call for an earlier assessment. 01/22/2024 the patient is here for sick visit. She has been sick now for about 2 weeks. She started developing a cough. Positive sick contacts at home. Started developing sore throat and also some tenderness over the cervical lymph nodes. Subsequently after that she started developing a cough. She went to an urgent care. The patient was given a course of doxycycline and a short course of prednisone. She did not feel better. The patient went to her primary care doctor's office. She was evaluated there. She was kept on the doxy and her prednisone was increased to 60 mg. She has been weaning down. She has not seen significant improvement. She feels that she has a significant productive cough. Moderate severity. She can not sleep with it. She has tried [id number]-exbyoih allergy medications without any relief. In the office she has significant rhonchi and wheezing. She is getting nebulizer treatment now. She does have evidence of sinusitis and also bronchitis. The patient did have a chest x-ray which I personally reviewed demonstrating no acute disease. We are awaiting final read. 02/12/2024 the patient is here for a follow-up visit. She developed worsening respiratory symptoms since we last spoke. apparently she was feeling better and she had a fall and she had a significant hematoma on the right thigh. She went to [facility] with a documented a large hematoma. Ultimately she started developing worsening shortness of breath and hypoxia. She was referred to [facility] ER. There she did undergo blood work including a hemoglobin dropping in of 3 g. in addition to that she had a CTA which I personally reviewed demonstrating some haziness suggesting some degree of pneumonitis which was diffuse throughout. No evidence of any pneumonia. She completed the 2nd course of antibiotics. In addition to that now she is having some ear pressure and sinus discomfort. She is down to 10 mg of prednisone. She is using the nebulizer. But she is concerned that she is not significantly better. She does have a pulse ox and sometimes her pulse ox is in the 80s. On exam she still has significant wheezing on exam. She is going to need to stay on the prednisone. Also some evidence of fluid in the middle ear. Will request additional blood work to assess her pneumonitis. Could be postviral although she does have a history of a fall likely hypersensitivity pneumonitis. We did try to collect a sputum sample in the office but we were not able to. Will go ahead and request blood work. If the patient is not able to provide a sputum sample and if it is still not clear if his symptoms have not improved with this 3rd course of medications then will talk about a bronchoscopy. 02/19/2024 the patient is here for a pulmonary follow-up visit. She started to feel better. Although she still has significant pressure in her right ear and also still having chest congestion. She did complete a course of azithromycin. Prior to that she had Augmentin and also doxycycline. Although, she still moderately congested. Still clearing phlegm. We did try to get a sputum culture but patient was not able to do so. She will bring 1 whenever possible. She has the specimen cup. She still has significant wheezing on exam. Will keep her on 10 mg of prednisone. In the meantime the blood work demonstrated an elevated KRISTOPHER and also a positive CCP. She started history of interstitial lung disease before and now her last CT scan also evidence of pneumonitis. Therefore, it is not unreasonable to consider potential connective tissue disease interstitial lung disease. Although the only thing that does not quite go along with that she is still very congested. Therefore I feel compelled to give her another course of antibiotics with Levaquin to make sure we treat every organism possible that could be contributing to her symptoms. Will try to get a sputum culture. If the patient is no better on the small dose of prednisone and also the levofloxacin then a bronchoscopy will be warranted. In the meantime will make a referral to the [facility]. The patient continues to use a nebulizer in continues to use the Breztri inhaler. She continues on Sudafed which is helping with her sinuses. At this time she will try 5 days of Afrin to see if this provides further relief of the pressure of her middle ear. We all these medications is affecting her sleep. She can use him Ambien as needed for sleep. Will follow-up in couple weeks. 04/03/2024 the patient is here for pulmonary follow-up visit. She is feeling better. She is down to 10 mg of prednisone. She is using the Breztri inhaler once a day. She is also using the nebulizer once a day. She is still having some chest congestion but much less. Difficult to expectorate at this time. Her ears still bothering her. She completed a course of Levaquin actually today. Therefore, will keep her off antibiotics. Unfortunately she was not able to provide a sputum culture. Will plan to taper down the prednisone further. The patient will increase her Breztri 2 twice a day. Her ear still bothering her specially the right 1. Feels full and is still dull in appearance. Therefore, she is going to start nasal rinsing continue the Sudafed and will be referred to ENT. Denies any significant rashes and she does have some joint pains but not the typical small joints. She does have a referral to Rheumatology pending. Will readdress that depending how her x-ray looks like during her next visit. 03/25/2024 the patient is here for a pulmonary follow-up visit. Overall she is doing a little better. She is down to 5 mg every other day of prednisone. She continues on the Breztri twice a day. In addition to that she had been using the nebulizer once a day but she stopped because is too cumbersome for her sometimes. She is currently dealing with her mom in hospice and has been difficult. The patient still having issues with her right ear she can not hear well from that ear in appears to have some fluid behind it and also some slight erythema. She has been on multiple courses of antibiotics already. Will try some ear drops uses see if this can provide some relief. She is waiting for an ENT evaluation. I wonder if she can have a laryngoscopy done to see if there is any blockage of the eustachian 2. Also she is having some hoarseness in that would help just to see what is going on with the vocal cords. She still coughing up some mucus although less. She has completed multiple courses of antibiotics. My suspicion is that she has not smoldering organism resulting in the ongoing mucus production. This could include stenotrophomonas or Pseudomonas. Will go ahead and request a chest x-ray at this time. If she continues with the chest congestion by the time she returns in several weeks will plan for bronchoscopy. For now though she is going to try to wean off the prednisone and will continue on the inhaler although I will switch her over to Alvesco and Bevespi with the hope that the Alvesco does not irritate so much vocal cords to Bravo hoarseness. Still no evidence of any active pneumonitis or airspace disease on the x-rays. Her CT scan that she had a [employer] was also reassuring although did have some slight areas of inflammation. We did review her blood work no significant allergies with a normal IgE level and a normal eosinophil level so therefore she is not a candidate for most biologics although she is still a candidate for test prior if she continues have the wheezing. She is also a candidate for Daliresp. Which would be a reasonable option to treat her for chronic bronchitis. This will also help especially if she is worsens after stopping the prednisone. 05/06/2024 the patient is here for a pulmonary follow-up visit. Overall she had been doing well. She was able to wean off the prednisone. But she has been noticing increasing chest congestion and wheezing. She has been using the Breztri although once a day. She is going to go back to twice a day. She continues to complain about her right ear which she is not getting great response to therapy. She has been Sudafed, multiple antibiotics, ear drops, nasal steroids without any significant improvement. She does have some fluid in the right ear. Also has significant nasal congestion. We did talk about starting the Neti bottle with budesonide which she can do that once a night. In the meantime she does have an appointment with ENT coming up. In regards of her chest she does have some wheezing and also some minimal rhonchi scattered. She did have a repeat CT scan of the chest specially because it was a question nodule on her x-ray and also to follow-up the pneumonitis that was on her CT scan back on January. Seems like the pneumonitis has resolved completely which is reassuring. She does have some persistent scarring in the right hemithorax after her surgeries and postoperative changes. But otherwise no significant findings. She does have some calcified pulmonary nodules that are not of any concern. Still though with her airway disease in her persistent symptoms now for about a 3 months will get a sputum culture and if not helpful will go ahead and perform bronchoscopy. [facility] Medical History (Updated 05/06/24 @ 21:51 by Boaz Nicole MD) Otitis media Bronchopneumonia Pneumonitis Viral syndrome H/O interstitial lung disease Hypersensitivity pneumonitis Organizing pneumonia Asthma Social History Patient Tobacco Use Status: Never used Tobacco Review of Systems Const Denies chills, Denies fatigue, Denies malaise and Denies night sweats ENT Reports otalgia, Reports hoarseness, Denies lip swelling, Denies mouth pain, Reports nasal congestion, Reports nasal obstruction, Reports sinus pressure and Denies tongue swelling Card Denies chest pain and Reports dyspnea on exertion Resp Reports chest congestion, Reports cough, Denies hemoptysis, Reports dyspnea on exertion and Reports wheezing GI Denies abdominal pain Musc Denies no additional complaints Neuro Denies Neuro-related abnormal movements Psych Denies no additional complaints Endo Denies fatigue Hermes/Lymph Denies easy bleeding and Denies lymphadenopathy Aller/Immun Denies lip swelling, Denies tongue swelling and Reports wheezing Physical Exam Vital Signs: Last Vital Signs Pulse 58 05/06/24 09:40 BP 118/82 05/06/24 09:40 Pulse Ox 100 05/06/24 09:40 Oxygen Delivery Method Room Air 05/06/24 09:40 BMI result Body Mass Index 23.5 Const General: comfortable and alert HEENT Head: Yes normocephalic Ears: Abnormal EAC present erythema and TM abnormal wth effusion and with fluid behind the TM General nose exam: Normal external nose present Eyes Pupils: Equal, round and reactive pupils present Neck Neck: Yes normal visual inspection, Yes full ROM and Yes no lymphadenopathy Chest Chest palpation & inspection: normal inspection of the chest Resp Effort & Inspection: normal respiratory effort Auscultation: wheezes and diminished lung sounds Cardio Rate: regular rate Rhythm: regular rhythm Heart sounds: S1 normal heart sound present and S2 normal heart sound present GI Palpation (GI): Soft to palpation and nontender Auscultation: normal bowel sounds General: Yes no CVA tenderness Back/Spine/Pelvis Back: no CVA tenderness Skin General skin exam: rashes and/or lesions noted Neuro Cranial nerves: Yes Equal, round and reactive pupils present Results Reviewed Results Reviewed: [address] chest and compared to CT chest 01/2025 with resolution of mosaic pattern/pneumonitis Assessment & Plan Assessment & Plan (1) Asthma: Code(s): J45.909 - Unspecified asthma, uncomplicated Category: Medical Qualifiers: Asthma severity: severe Asthma persistence: persistent Asthma complication type: uncomplicated Qualified Code(s): J45.50 - Severe persistent asthma, uncomplicated Plan: Short-acting beta agonist as needed (2) Bronchitis: Code(s): J40 - Bronchitis, not specified as acute or chronic Category: Medical (3) Pneumonitis: Comment: better, resolved Code(s): J98.4 - Other disorders of lung Category: Medical (4) Hypersensitivity pneumonitis: Code(s): J67.9 - Hypersensitivity pneumonitis due to unspecified organic dust Category: Medical Plan: Avoiding mold (5) H/O interstitial lung disease: Comment: AFOB Code(s): Z87.09 - Personal history of other diseases of the respiratory system Category: Medical (6) KRISTOPHER positive: Code(s): R76.8 - Other specified abnormal immunological findings in serum Category: Medical (7) Positive anti-CCP test: Code(s): R76.8 - Other specified abnormal immunological findings in serum Category: Medical Plan stop prednisone taper 5mg->now off nebulizer as needed acapella valve for CPT Increase Breztri with spacer BID MARY as needed pseudophed as needed sputum culture if able consider bronchoscopy Rheumatology eval-will refer to the [facility] [place] ambien for sleep ENT referral for persistent chronic rhinitis, sinusitis and right middle ear effusion. Tried and failed: multiple abx, nasal sprays, prednisone, start neti bottle with budesonide daily F/U 3-4 weeks Orders: Orders Sputum Cult + Gram stain Today R91.1 - Solitary pulmonary nodule Medications: New budesonide 0.5 mg (2 mL) inhalation DAILY 30 days 60 mL 11RF Coding Level of Care Code Est Pt Level 5 (95849) Diagnoses Severe persistent asthma without complication J45.50 Asthma severity: severe Asthma persistence: persistent Asthma complication type: uncomplicated Bronchitis J40 Pneumonitis J98.4 Hypersensitivity pneumonitis J67.9 H/O interstitial lung disease Z87.09 KRISTOPHER positive R76.8 Positive anti-CCP test R76.8 Time Spent (min) 60
== END 2024-05-06 10:23 | disposition home or self-care (01) ==
PROVIDERS: PCP Internal Medicine; Visit Provider Hospitalist
DX: J45.50 Severe persistent asthma, uncomplicated (principal); J98.4 Other disorders of lung; J67.9 Hypersensitivity pneumonitis due to unspecified organic dust; Z87.09 Personal history of other diseases of the respiratory system; R76.8 Other specified abnormal immunological findings in serum
CPT/HCPCS: 99215

== ENCOUNTER 2024-06-10 09:10 | Outpatient (AMB) | payer OTHER, SELFPAY ==
--- NOTE | 2024-06-10 09:14 | MHC.OFFVIS ---
Vital Signs 06/10/24 09:15 Height 5 ft 1 in Weight 120 lb 2.431 oz BMI 22.7 BP 110/80 Blood Pressure Location Rt brachial Position Sitting Pulse 60 Pulse Source Pulse Oximeter Pulse Oximetry (%) 98 Oxygen Delivery Method Room Air Intake Visit Reasons: Cough Allergies No Known Allergies Allergy (Verified 06/10/24 09:18) HPI Comments Details: The patient is a 63-year-old woman with a known history of asthma in addition to acute fibrinous organizing pneumonia (AFOP) biopsy-proven. She did require prednisone and also CellCept for a duration of time. Subsequently was able to wean off. She has been doing well and have not seen her in the last couple years. She still complains of dyspnea on exertion. Moderate severity. Does have some wheezing at times. She does have a rescue inhaler that she uses. She used to have Symbicort HFA has not been using it regularly. She has not had any imaging studies of breathing studies in some time. Also to note her hypersensitivity panel had been positive in the past. She did have mold issues in the bathroom which was felt to be potentially contributing to her underlying interstitial process. She has normal lung mechanics which is reassuring. The patient was supposed to have an x-ray. crackles which is likely all related to her surgery. No significant wheezing. We did talk about decreasing the amount of Symbicort to 1 dilation and also she can use the Singulair seasonally. 01/22/2024 the patient is here for sick visit. She has been sick now for about 2 weeks. She started developing a cough. Positive sick contacts at home. Started developing sore throat and also some tenderness over the cervical lymph nodes. Subsequently after that she started developing a cough. She went to an urgent care. The patient was given a course of doxycycline and a short course of prednisone. She did not feel better. The patient went to her primary care doctor's office. She was evaluated there. She was kept on the doxy and her prednisone was increased to 60 mg. She has been weaning down. She has not seen significant improvement. She feels that she has a significant productive cough. Moderate severity. She can not sleep with it. She has tried daph-bbs-jucvlzy allergy medications without any relief. In the office she has significant rhonchi and wheezing. She is getting nebulizer treatment now. She does have evidence of sinusitis and also bronchitis. The patient did have a chest x-ray which I personally reviewed demonstrating no acute disease. We are awaiting final read. 02/12/2024 the patient is here for a follow-up visit. She developed worsening respiratory symptoms since we last spoke. apparently she was feeling better and she had a fall and she had a significant hematoma on the right thigh. She went to initially [facility] with a documented a large hematoma. Ultimately she started developing worsening shortness of breath and hypoxia. She was referred to [facility] ER. There she did undergo blood work including a hemoglobin dropping in of 3 g. in addition to that she had a CTA which I personally reviewed demonstrating some haziness suggesting some degree of pneumonitis which was diffuse throughout. No evidence of any pneumonia. She completed the 2nd course of antibiotics. In addition to that now she is having some ear pressure and sinus discomfort. She is down to 10 mg of prednisone. She is using the nebulizer. But she is concerned that she is not significantly better. She does have a pulse ox and sometimes her pulse ox is in the 80s. On exam she still has significant wheezing on exam. She is going to need to stay on the prednisone. Also some evidence of fluid in the middle ear. Will request additional blood work to assess her pneumonitis. Could be postviral although she does have a history of a fall likely hypersensitivity pneumonitis. We did try to collect a sputum sample in the office but we were not able to. Will go ahead and request blood work. If the patient is not able to provide a sputum sample and if it is still not clear if his symptoms have not improved with this 3rd course of medications then will talk about a bronchoscopy. 02/19/2024 the patient is here for a pulmonary follow-up visit. She started to feel better,a lthough she still has significant pressure in her right ear and also still having chest congestion. She did complete a course of azithromycin. Prior to that she had Augmentin and also doxycycline. Although, she still moderately congested. Still clearing phlegm. We did try to get a sputum culture but patient was not able to do so. She will bring 1 whenever possible. She has the specimen cup. She still has significant wheezing on exam. Will keep her on 10 mg of prednisone. In the meantime the blood work demonstrated an elevated KRISTOPHER and also a positive CCP. She started history of interstitial lung disease before and now her last CT scan also evidence of pneumonitis. Therefore, it is not unreasonable to consider potential connective tissue disease interstitial lung disease. Although the only thing that does not quite go along with that she is still very congested. Therefore I feel compelled to give her another course of antibiotics with Levaquin to make sure we treat every organism possible that could be contributing to her symptoms. Will try to get a sputum culture. If the patient is no better on the small dose of prednisone and also the levofloxacin then a bronchoscopy will be warranted. In the meantime will make a referral to the credit front office developer. The patient continues to use a nebulizer in continues to use the Breztri inhaler. She continues on Sudafed which is helping with her sinuses. At this time she will try 5 days of Afrin to see if this provides further relief of the pressure of her middle ear. We all these medications is affecting her sleep. She can use him Ambien as needed for sleep. Will follow-up in couple weeks. 04/03/2024 the patient is here for pulmonary follow-up visit. She is feeling better. She is down to 10 mg of prednisone. She is using the Breztri inhaler once a day. She is also using the nebulizer once a day. She is still having some chest congestion but much less. Difficult to expectorate at this time. Her ears still bothering her. She completed a course of Levaquin actually today. Therefore, will keep her off antibiotics. Unfortunately she was not able to provide a sputum culture. Will plan to taper down the prednisone further. The patient will increase her Breztri 2 twice a day. Her ear still bothering her specially the right 1. Feels full and is still dull in appearance. Therefore, she is going to start nasal rinsing continue the Sudafed and will be referred to ENT. Denies any significant rashes and she does have some joint pains but not the typical small joints. She does have a referral to Rheumatology pending. Will readdress that depending how her x-ray looks like during her next visit. 03/25/2024 the patient is here for a pulmonary follow-up visit. Overall she is doing a little better. She is down to 5 mg every other day of prednisone. She continues on the Breztri twice a day. In addition to that she had been using the nebulizer once a day but she stopped because is too cumbersome for her sometimes. She is currently dealing with her mom in hospice and has been difficult. The patient still having issues with her right ear she can not hear well from that ear in appears to have some fluid behind it and also some slight erythema. She has been on multiple courses of antibiotics already. Will try some ear drops uses see if this can provide some relief. She is waiting for an ENT evaluation. I wonder if she can have a laryngoscopy done to see if there is any blockage of the Eustachian tube. Also she is having some hoarseness in that would help just to see what is going on with the vocal cords. She still coughing up some mucus although less. She has completed multiple courses of antibiotics. My suspicion is that she has not smoldering organism resulting in the ongoing mucus production. This could include stenotrophomonas or Pseudomonas. Will go ahead and request a chest x-ray at this time. If she continues with the chest congestion by the time she returns in several weeks will plan for bronchoscopy. For now though she is going to try to wean off the prednisone and will continue on the inhaler although I will switch her over to Alvesco and Bevespi with the hope that the Alvesco does not irritate so much vocal cords to Bravo hoarseness. Still no evidence of any active pneumonitis or airspace disease on the x-rays. Her CT scan that she had a [employer] was also reassuring although did have some slight areas of inflammation. We did review her blood work no significant allergies with a normal IgE level and a normal eosinophil level so therefore she is not a candidate for most biologics although she is still a candidate for test prior if she continues have the wheezing. She is also a candidate for Daliresp. Which would be a reasonable option to treat her for chronic bronchitis. This will also help especially if she is worsens after stopping the prednisone. 05/06/2024 the patient is here for a pulmonary follow-up visit. Overall she had been doing well. She was able to wean off the prednisone. But she has been noticing increasing chest congestion and wheezing. She has been using the Breztri although once a day. She is going to go back to twice a day. She continues to complain about her right ear which she is not getting great response to therapy. She has been Sudafed, multiple antibiotics, ear drops, nasal steroids without any significant improvement. She does have some fluid in the right ear. Also has significant nasal congestion. We did talk about starting the Neti bottle with budesonide which she can do that once a night. In the meantime she does have an appointment with ENT coming up. In regards of her chest she does have some wheezing and also some minimal rhonchi scattered. She did have a repeat CT scan of the chest specially because it was a question nodule on her x-ray and also to follow-up the pneumonitis that was on her CT scan back on January. Seems like the pneumonitis has resolved completely which is reassuring. She does have some persistent scarring in the right hemithorax after her surgeries and postoperative changes. But otherwise no significant findings. She does have some calcified pulmonary nodules that are not of any concern. Still though with her airway disease in her persistent symptoms now for about a 3 months will get a sputum culture and if not helpful will go ahead and perform bronchoscopy. 06/10/2024 the patient is here for pulmonary follow-up visit. Overall she is doing a little better. She did go to ENT. She had to get her tympanic membrane peers and drain because of significant fluid buildup in the responded to medical therapy. She was having some issues with bleeding after that but now is healing. She is going to have an CT scan of the here today. She will continue to follow-up with ENT. She also has an appointment with Rheumatology. She does describe some elbow discomfort although not sure if she has any constitutional symptoms that go along rheumatoid arthritis or any other connective tissue disease. She will follow-up with Rheumatology to look into that further. In the meantime she her respiratory inhalers are working well. She does having significant wheezing on exam. She is getting better. We did review her CT scan she did have a liver cyst and she was concerned about that. I did reassure her that is likely benign and a some point when she returns in 4 months we can talk about further testing for that but right now I will just focus on the ENT issues in the rheumatologic or issues. She will continue with respiratory therapy she has not worsening symptoms she will call. [facility] Medical History (Updated 05/06/24 @ 21:51 by Boaz Nicole MD) Otitis media Bronchopneumonia Pneumonitis Viral syndrome H/O interstitial lung disease Hypersensitivity pneumonitis Organizing pneumonia Asthma Social History Patient Tobacco Use Status: Never used Tobacco Review of Systems Const Denies chills, Denies fatigue, Denies malaise and Denies night sweats ENT Reports as per HPI, Reports otalgia, Reports hoarseness, Denies lip swelling, Denies mouth pain, Reports nasal congestion, Reports nasal obstruction, Reports sinus pressure and Denies tongue swelling Card Denies chest pain and Reports dyspnea on exertion Resp Reports chest congestion, Reports cough, Denies hemoptysis, Reports dyspnea on exertion and Reports wheezing GI Denies abdominal pain Musc Denies no additional complaints Neuro Denies Neuro-related abnormal movements Psych Denies no additional complaints Endo Denies fatigue Hermes/Lymph Denies easy bleeding and Denies lymphadenopathy Aller/Immun Denies lip swelling, Denies tongue swelling and Reports wheezing Physical Exam Vital Signs: Last Vital Signs Pulse 60 06/10/24 09:15 BP 110/80 06/10/24 09:15 Pulse Ox 98 06/10/24 09:15 Oxygen Delivery Method Room Air 06/10/24 09:15 BMI result Body Mass Index 22.7 Const General: comfortable and alert HEENT Head: Yes normocephalic General nose exam: Normal external nose present Eyes Pupils: Equal, round and reactive pupils present Neck Neck: Yes normal visual inspection, Yes full ROM and Yes no lymphadenopathy Chest Chest palpation & inspection: normal inspection of the chest Resp Effort & Inspection: normal respiratory effort Auscultation: no wheezes and diminished lung sounds Cardio Rate: regular rate Rhythm: regular rhythm Heart sounds: S1 normal heart sound present and S2 normal heart sound present GI Palpation (GI): Soft to palpation and nontender Auscultation: normal bowel sounds General: Yes no CVA tenderness Back/Spine/Pelvis Back: no CVA tenderness Skin General skin exam: rashes and/or lesions noted Neuro Cranial nerves: Yes Equal, round and reactive pupils present Assessment & Plan Assessment & Plan (1) Asthma: Code(s): J45.909 - Unspecified asthma, uncomplicated Category: Medical Qualifiers: Asthma complication type: uncomplicated Asthma persistence: persistent Asthma severity: severe Qualified Code(s): J45.50 - Severe persistent asthma, uncomplicated Plan: Short-acting beta agonist as needed (2) Pneumonitis: Comment: better, resolved Code(s): J98.4 - Other disorders of lung Category: Medical (3) Hypersensitivity pneumonitis: Code(s): J67.9 - Hypersensitivity pneumonitis due to unspecified organic dust Category: Medical Plan: Avoiding mold (4) H/O interstitial lung disease: Comment: AFOB Code(s): Z87.09 - Personal history of other diseases of the respiratory system Category: Medical (5) KRISTOPHER positive: Code(s): R76.8 - Other specified abnormal immunological findings in serum Category: Medical (6) Positive anti-CCP test: Code(s): R76.8 - Other specified abnormal immunological findings in serum Category: Medical Plan stopped prednisone nebulizer as needed acapella valve for CPT Breztri with spacer BID MARY as needed pseudophed as needed Rheumatology evaluation pending ambien for sleep ENT treatment has been effective start neti bottle with budesonide daily F/U 3-4 weeks Coding Level of Care Code Est Pt Level 4 (59217) Complex EM visit Add On G2211 Diagnoses Severe persistent asthma without complication J45.50 Asthma complication type: uncomplicated Asthma persistence: persistent Asthma severity: severe Pneumonitis J98.4 Hypersensitivity pneumonitis J67.9 H/O interstitial lung disease Z87.09 KRISTOPHER positive R76.8 Positive anti-CCP test R76.8 Time Spent (min) 17
[2024-06-10 09:15] VITALS: BP 110/80; PULSE 60; O2SAT 98; BMI 22.7
--- OUTSIDE RECORDS SUMMARY | 2024-06-10 09:45 | XMS_ITS | Encounter Summary ---
Author Organization [facility] Address [address] [place] [id number] Care Team Providers Care Cake Wrapper Name Role Phone Mj Rodriguez MD Primary Care Provider Encounter Details Date Type Department Care Team (Late st Contact Info) Description 05/19/2024 Telephone [facility] [address], [place] [address] Benjamin Rivera MD [address] [place] [id number] Social History Tobacco Use Types Packs/Day Years Used Date Smoking Tobacco: Never Passive Smoke Exposure: Never Smokeless Tobacco: Never Alcohol Use Standard Drinks/Week Comments Yes 0 (1 standard drink = 0.6 oz pur e alcohol) Sex and Gender Information Value Date Recorded Sex Assigned at Female 05/02/2024 1:20 PM EST Gender Identity Female 05/02/2024 1:20 PM EST Sexual Orientation Choose not to disclose 2024 1:20 PM EST documented as of this encounter Miscellaneous Notes * Telephone Encounter - Edith Malhotra MA - 05/19/2024 1:32 PM EST Gayla calls in and LM stating that a coworker told her that her ear looks angry and that it is very red. She has noticed some dried blood and it still very tender to the touch. Also, she did call a couple of days ago stating that she had some pain and tenderness with some discharge. I assured her that it was all normal at that time. Leaves CB# [phone] documented in this encounter Plan of Treatment Not on file documented as of this encounter Visit Diagnoses Not on filedocumented in this encounter Care Teams Cake Wrapper Relationship Specialty Start Date End Date Mj Rodriguez MD [address] [place] [id number] PCP - General Internal Medicine 05/12/24 documented as of this encounter
--- OUTSIDE RECORDS SUMMARY | 2024-06-10 09:45 | XMS_ITS | Encounter Summary ---
Author Organization [facility] Address [address] [place] [address] Care Team Providers Care Webmethods Architect Name Role Phone Mj Rodriguez MD Primary Care Provider Reason for Visit * Reason Comments Hearing Loss Encounter Details Date Type Department Care Team (Latest Contact Info) Description 05/12/2024 10:00 AM EST Clinical Support [facility] [address], [place] [phone] Benjamin Rivera MD [address] [place] [phone] Maile Madison Au.D [address] [place] [id number] Mixed conductive and sensorineural hearing loss of right ear with restricted hearing of left ear (Primary Dx); Sensorineural hearing loss (SNHL) of left ear with restricted hearing of right ear; Postnasal drip; Chronic serous otitis media, right ear; Dysphonia Social History Tobacco Use Types Packs/Day Years Used Date Smoking Tobacco: Never Passive Smoke Exposure: Never Smokeless Tobacco: Never Tobacco Cessation:Counseling Given: Not Answered Alcohol Use Standard Drinks/Week Comments Yes 0 (1 standard drink = 0.6 oz pur e alcohol) Sex and Gender Information Value Date Recorded Sex Assigned at Female 05/02/2024 1:20 PM EST Gender Identity Female 05/02/2024 1:20 PM EST Sexual Orientation Choose not to disclose 2024 1:20 PM EST documented as of this encounter Progress Notes * Benjamin Rivera MD - 05/12/2024 10:00 AM EST Images from the original note were not included. [address] [facility], [facility] [id number] Loc: [phone] Encounter Date: 05/12/2024 Chief Complaint Patient presents with Hearing Loss 1. Sensorineural hearing loss (SNHL) of left ear with restricted hearing of right ear - Audiometry 2. Mixed conductive and sensorineural hearing loss of right ear with restricted hearing of left ear - Audiometry 3. Postnasal drip 4. Chronic serous otitis media, right ear - triamcinolone (NASACORT AQ) 55 MCG/ACT Aerosol nasal spray; 2 sprays into each nostril daily. Dispense: 1 each; Refill: 3 5. Dysphonia ASSESSMENT AND PLAN Gayla Adkins is a 63-year-old female presenting with persistent right ear blockage and humming tinnitus since an illness in December 2023. The left ear has cleared up, but the right ear remains symptomatic. Audiogram shows mild to severe mixed hearing loss in the right ear and mild sensorineural hearing loss in the left ear. Tympanogram is Type B on the right and Type A on the left. The clinical presentation, along with tuning fork test results, suggests persistent fluid in the right middle ear. - Performed myringotomy on the right ear with fluid aspiration today - Prescribe Nasacort nasal spray for one month to address potential eustachian tube dysfunction andsinus inflammation - Follow-up in three to four weeks to assess ear and overall symptom improvement - Patient advised to keep ear dry for two days using cotton or earplugs during showers - Continue saltwater gargles after inhaler use to mitigate vocal cord irritation - Discuss potential need for further procedures if symptoms persist, including Ear tube insertion and possible eustachian tube dilation or additional imaging - Discussed flexible fiberoptic laryngoscopy at follow-up if hoarseness persists HISTORY OF PRESENT ILLNESS Gayla Adkins reports persistent right ear blockage and humming tinnitus since an illness in late December 2023. She was on steroids for 10 weeks, used a nebulizer, increased inhaler intake, and completed four courses of antibiotics without significant improvement. She also tried Sudafed, Mucinex,and steroid/antibiotic ear drops. Gayla experiences a constant feeling of something stuck in her throat, voice hoarseness by the end of the day, and postnasal drip. A recent CAT scan showed improvement, but wheezing persists. She feels a dull headache and frustration with her symptoms. PHYSICAL EXAM The patient was in no acute distress and breathing comfortably on exam. Examination of the ears, nose, oral cavity, oropharynx, and neck was completed and found to be within normal limits with the following notable exceptions and findings highlighted here: - Audiogram: Normal hearing through 4,000 Hz sloping to mild sensorineural hearing loss in the leftear, mild to severe mixed hearing loss in the right ear - Tympanogram: Type B on the right, Type A on the left - Tuning fork test: Stacy test suggests right ear fluid - Otoscopic exam: Retraction of right TM, ME suspected in right middle ear - Nasal exam: Signs of cobblestoning, indicating chronic inflammation DIAGNOSTIC TESTING REVIEWED Audiogram: Normal hearing through 4,000 Hz sloping to mild sensorineural hearing loss in the left ear and mild to severe mixed hearing loss in the right ear. Tympanogram: Type B on the right and TypeA on the left. PROCEDURE Name of Procedure: Myringotomy, fluid aspiration, right ear Indication: See HPI EBL: less than 5 ml Description of the procedure: The patient was identified in the procedure room and surgical consent was reviewed and signed. All questions were answered at this time. The patient was placed in a reclined position and the operative microscope was used to evaluate the ear and ear canal. Cerumen debris was removed from the ear canal and the tympanic membrane was visualized. Topical phenol was applied to the inferior aspect of the tympanic membrane. After adequate time for this to take effect, a radial myringotomy incision was created in the tympanic membrane and serous fluid aspirated from the middle ear. The patient tolerated the procedure well and was observed prior to discharge home with post-procedure instructions. Disposition: Home with self care PAST MEDICAL HISTORY Past Medical History: Diagnosis Date Asthma HL (hearing loss) Past Surgical History: Procedure Laterality Date EYE SURGERY LUNG BIOPSY Family History Problem Relation Age of Onset Heart disease Mother Stroke Mother Autoimmune disease Mother Autoimmune disease Father Social History Tobacco Use Smoking status: Never Passive exposure: Never Smokeless tobacco: Never Substance Use Topics Alcohol use: Yes Drug use: Never MEDICATIONS Current Outpatient Medications: [employer] 160-9-4.8 MCG/ACT Aerosol, Inhale 2 puffs 2 times a day., Disp: , Rfl: triamcinolone (NASACORT AQ) 55 MCG/ACT Aerosol nasal spray, 2 sprays into each nostril daily., Disp: 1 each, Rfl: 3 ALLERGIES No Known Allergies VISIT ORDERS 1. Sensorineural hearing loss (SNHL) of left ear with restricted hearing of right ear - Audiometry 2. Mixed conductive and sensorineural hearing loss of right ear with restricted hearing of left ear - Audiometry 3. Postnasal drip 4. Chronic serous otitis media, right ear - triamcinolone (NASACORT AQ) 55 MCG/ACT Aerosol nasal spray; 2 sprays into each nostril daily. Dispense: 1 each; Refill: 3 5. Dysphonia Benjamin Rivera MD documented in this encounter Procedure Notes * Rhiannon Barbosa - 05/12/2024 10:00 AM ESTAssociated Order(s): AUDIOMETRY Pre-Procedure Diagnose(s): Sensorineural hearing loss (SNHL) of left ear with restricted hearing ofright ear; Mixed conductive and sensorineural hearing loss of right ear with restricted hearing of left ear Images from the original note were not included. documented in this encounter Plan of Treatment Not on file documented as of this encounter Procedures Procedure Name Priority Date/Time Associated Diagnosis Comments AUDIOMETRY Routine 05/12/2024 10:00 AM EST Sensorineural hearing loss (SNHL) of left ear with restricted hearing of right ear Mixed conductive and sensorineural hearing loss of right ear with restricted hearing of left ear AUDIOMETRY Routine 05/12/2024 10:00 AM EST Sensorineural hearing loss (SNHL) of left ear with restricted hearing of right ear Mixed conductive and sensorineural hearing loss of right ear with restricted hearing of left ear documented in this encounter Results * Audiometry (05/12/2024 10:00 AM EST) Narrative Maile Madison Au.D - 05/12/2024 10:00 AM EST Rhiannon Barbosa ? 05/12/2024 10:30 AM Procedure Note Maile Rhiannon Madison - 05/12/2024 10:00 AM EST Images from the original note were not included. Benjamin Rivera MD [facility] documented in this encounter Visit Diagnoses Diagnosis Mixed conductive and sensorineural hearing loss of right ear with restricted hearing of left ear- Primary Sensorineural hearing loss (SNHL) of left ear with restricted hearing of right ear Postnasal drip Chronic serous otitis media, right ear Dysphonia documented in this encounter Care Teams Webmethods Architect Relationship Specialty Start Date End Date Mj Rodriguez MD [address] [place] [phone] PCP - General Internal Medicine 05/12/24 documented as of this encounter
--- OUTSIDE RECORDS SUMMARY | 2024-06-10 09:45 | XMS_ITS | Encounter Summary ---
Author Organization [facility] Address [address] [place] [address] Care Team Providers Care Antique Finisher Name Role Phone Mj Rodriguez MD Primary Care Provider Encounter Details Date Type Department Care Team (Late st Contact Info) Description 05/23/2024 Scanned Document [facility] PULMONARY SVC IP [address] [place] [phone] Boaz Nicole MD [address] [place] [phone] Social History Tobacco Use Types Packs/Day Years [...] PM EST documented as of this encounter Plan of Treatment Not on file documented as of this encounter Visit Diagnoses Not on filedocumented in this encounter Care Teams Antique Finisher Relationship Specialty Start Date End Date Mj Rodriguez MD [address] [place] [address] PCP - General Internal Medicine 05/12/24 documented as of this encounter
--- OUTSIDE RECORDS SUMMARY | 2024-06-10 09:45 | XMS_ITS | Data Portability ---
Author Organization [facility] Address [address] [place] [phone] Assessment No assessment recorded. Plan of Treatment Reminders Order Date Submit Date Provider Last Modified By Organization Details Last Modified Time Details Appointments None recorded. Lab SARS CoV 2 (COVID-19) Ag, QL, [place], upper respiratory specimen 2022 023 [facility] _[facility], [address] [place] [address], [phone], 19:18:22 rapid flu (A+B) 2022 023 [facility] _[facility], [address] [place] [address], [phone], 19:18:21 Referral None recorded. Procedures None recorded. Surgeries None recorded. Imaging None recorded. Medication Orders Allergy Relief (fluticason e) 50 mcg/actuati on nasal spray,suspe nsion 2022 023 [facility] #[id number], [phone] [place], [address], 19:21:05 Patient TargetsNo targets recorded. Patient Instructions Encounter Date Encounter Id Patient Instructions Last Modified By Organization Details Last Modified Time 12/15/2022 [id number] cough: care instructions [email or web address] Not available 12/15/2022 19:18:19 Sinusitis is an infection of the lining of the sinus cavities in your head. Sinusitis often follows a cold. It causes pain and pressure in your head and face. In most cases, sinusitis gets better on its own in 1 to 2 weeks. But some mild symptoms may last for several weeks. Sometimes antibiotics are needed. if you are having problems. It's also a good idea to know your test results and keep a list of the medicines you take. How can you care for yourself at home? Take an ttnm-mbr-fyhzvqt pain medicine. Avoid Ibuprofen, Aleve and Aspirin if . If the doctor prescribed antibiotics, take them as directed. Do not stop taking them just because you feel better. You need to take the full course of antibiotics. Be careful when taking itoe-jcm-vnrpqfa cold or influenza (flu) medicines and Tylenol at the same time. Many of these medicines have acetaminophen, which is Tylenol. Read the labels to make sure that you are not taking more than the recommended dose. Too much acetaminophen (Tylenol) can be harmful. Breathe warm, moist air from a steamy shower, a hot bath, or a sink filled with hot water. Avoid cold, dry air. Using a humidifier in your home may help. Follow the directions for cleaning the machine. Use saline (saltwater) nasal washes. This can help keep your nasal passages open and wash out mucus and bacteria. You can buy saline nose drops at a grocery store or drugstore. Or you can make your own at home by adding 1 teaspoon (5 millilitres) of salt and 1 teaspoon (5 millilitres) of baking soda to 2 cups (500 mL) of distilled water. If you make your own, fill a bulb syringe with the solution, insert the tip into your nostril, and squeeze gently. Blow your nose. Put a hot, wet towel or a warm gel pack on your face 3 or 4 times a day for 5 to 10 minutes each time. Try a decongestant nasal spray like oxymetazoline (Drixoral). Do not use it for more than 3 days in a row. Using it for more than 3 days can make your congestion worse. Not available 12/15/2022 19:17:46 If you test positive for COVID-19, stay home for at least 5 days and isolate from others in your home. You are likely most infectious during these first 5 days. Wear a high-quality mask if you must be around others at home and in public. Do not go places where you are unable to wear a mask. For travel guidance, see [facility]? s Travel webpage. Do not travel. Stay home and separate from others as much as possible. Use a separate bathroom, if possible. Take steps to improve ventilation at home, if possible. Don? t share personal household items, like cups, towels, and utensils. Monitor your symptoms. If you have an emergency warning sign (like trouble breathing), seek emergency medical care immediately. If you had symptoms and: Your symptoms are improving You may end isolation after day 5 if: You are fever-free for 24 hours (without the use of fever-reducing medication). Your symptoms are not improving Continue to isolate until: You are fever-free for 24 hours (without the use of fever-reducing medication). Your symptoms are improving. Regardless of when you end isolation Until at least day 11: Avoid being around people who are more likely to get very sick from COVID-19. Remember to wear a high-quality mask when indoors around others at home and in public. Do not go places where you are unable to wear a mask until you are able to discontinue masking (see below). For travel guidance, see [facility]? s Travel webpage. Not available 12/15/2022 19:17:15 Reason for Referral None Reported. Results Created Date Observation Date Name Description Value Unit Range Abnormal Flag Note LastModifiedBy Organization Detail LastModifiedTime 12/16/1912/15/2022 SARS CoV 2 (COVI D-19) Ag, QL, IA, upper respi rator y speci men Unknown Analyte negati ve Not Available [facility] [address] [place], [address], 12/15/2022 18:54:00 12/16/1912/15/2022 SARS CoV 2 (COVI D-19) Ag, QL, IA, upper respi rator y speci men Unknown Analyte negati ve Not Available [facility] [address] [place], [address], 12/15/2022 18:54:00 12/16/1912/15/2022 rapid flu (A+B) Unknown Analyte negati ve Not Available [facility] [address] [place], [address], 12/15/2022 18:53:47 12/16/1912/15/2022 rapid flu (A+B) Unknown Analyte negati ve Not Available [facility] [address] [place], [address], 12/15/2022 18:53:47 Result Notes None recorded. Medical Equipment None Reported. Allergies No known drug allergies Medications Name Sig Start Date Stop Date Status Note LastModified by Organization Details LastModified Time hydrocortis one valerate 0.2 % topical cream APPLY 1 GRAM THREE TIMES A DAY NEEDED FOR ITCHING AND DISCOMFOR T 12/15 completed Not Available Not Available Not Available meloxicam 15 mg tablet TAKE 1 TABLET EVERY DAY 12/15 completed Not Available Not Available Not Available cephalexin 500 mg capsule TAKE 1 CAPSULE BY MOUTH 3 TIMES A DAY AFTER SURGERY 12/15 completed Not Available Not Available Not Available erythromyci n 5 mg/gram (0.5 %) eye ointment APPLY 1/2 INCH RIBBON INTO LOWER LID OF BOTH EYES TWICE DAILY 12/15 completed Not Available Not Available Not Available fluticasone propionate 50 mcg/actuati on nasal spray,suspe nsion SPRAY 1 SPRAY BY INTRANASA L ROUTE EVERY DAY DIRECTED FOR 30 DAYS 2022 active Not Available Not Available Not Avai lable sodium,pota ssium,mag sulfates 17.5 gram-3.13 gram-1.6 gram oral soln TAKE 177 ML BY MOUTH - SEE ADMIN INSTRUCTI ONS FOR 2 DOSES. 12/15 completed Not Available Not Available Not Available Yuvafem [address] TABLET VAGINALLY 3 TIMES WEEKLY AT BEDTIME 12/15 completed Not Available Not Available Not Available Vitals Date Recorded Body height Body mass index (BMI) Body weight Oxygen saturation Oxygen saturation in Arterial blood by Pulse oximetry Heart rate Respiratory rate Systolic blood pressure Diastolic blood pressure Provider Name and Address Organization Details Last Updated DateTime 3 154.94 cm 22.7 kg/m2 15186.0 8 g 98 % 98 % 68 /min 18 /min 133 mm[Hg] 82 mm[Hg] Carmita Ruizga PA - [facility] 3 18:53:09 Social History None recorded. Functional Status None recorded. Mental Status None recorded. Family History Nothing Reported. Medical History No medical history recorded. Gynecological HistoryNo gynecological history recorded. Obstetrics History GPAL:G 0 P 0 0 0 0 Immunizations Vaccine Type Date Status Note Provider Nam e and Address Organization Details Recorded Time COVID-19, mRNA, LNP-S, PF, 30 mcg/0.3 mL dose 2 completed Carmita Ramos null, PA - [facility] 12/15/2022 18:39:36 COVID-19, mRNA, LNP-S, PF, 30 mcg/0.3 mL dose 1 completed Carmita Ramos null, PA - [facility] 12/15/2022 18:39:36 COVID-19, mRNA, LNP-S, PF, 30 mcg/0.3 mL dose 1 completed Carmita Ramos null, PA - [facility] 12/15/2022 18:39:36 Influenza, split virus, trivalent, preservative 2 completed Carmita Ramos null, PA - [facility] 12/15/2022 18:39:36 Influenza, split virus, quadrivalent, PF 0 completed Carmita Ramos kasandra, PA - [facility] 12/15/2022 18:39:36 Past Encounters Encounter ID Performer Location Encounter Start Date Encounter Closed Date Diagnosis/Indication Diagnosis SNOMED-CT Code Diagnosis ICD10 Code Diagnosis Note [id number] [address] [address] [address] 02/18/2016 19:50:28 02/18/2016 20:08:22 [id number] [address] [address] [address] 10/30/2018 18:11:34 10/30/2018 18:45:46 [id number] [address] [address] [address] 09/27/2021 15:28:56 09/27/2021 16:51:09 [id number] [facility] [address] 06/18/2015 17:17:46 06/18/2015 17:58:27 [id number] [facility] [address] 02/28/2017 14:32:46 02/28/2017 15:11:49 [id number] David [facility] [address] [address] 12/15/2022 18:15:15 12/15/2022 19:21:52 Acute sinusitis 88110082 J01.90 Exposure t o SARS-CoV-2 367052135 Z20.822 Health Concerns Section Related Observation LastModified by Organization Detai ls LastModified Time None Recorded Concern Status LastModified by Organization Details LastModified Time None Recorded Advance Directives Directive None Recorded Payers Encounter Date Sequence Insurance Name Policy Number Policy Gutierrez Covered Member ID Gutierrez Member ID Guarantor Name 09/27/2021 1 [facility] [id number] Gayla Ciocca Peloquin [id number] Gayla Ciocca Peloquin 12/15/[address] [place] [id number] Gayla Ciocca Peloquin [id number] Gayla Ciocca Peloquin Notes Date Note Type Note Provider Name and Address Organization Details Recorded Time 12/15/2022 text/html Sinus Complaints UCReported bypatient.Location: sinus pain;facial pain;sinus pressure Associated Symptoms:no fever; no nausea or vomiting; no sore throat; no ear fullness; no nasal itching; no eye itching; no dizziness;difficult y breathing;Post nasal drip;nasal passage blockage;cough Onset/Timing:worse in am; worse in pm Quality:minimal discomfort;worsenin g; clear Duration:frequent Severity:moderate Context:no recent upper respiratory infection; no recent sick contacts; not worse with seasonal allergen exposure;worse with environmental exposure Risk Factors:no current smoking or tobacco use; no history of nasal trauma Alleviating factors:oral steroids Aggravating factors:worse during an upper respiratory infection (a cold); worse with excess fatigue Prior Treatmentoral decongestant David Yoon NP [address] [place], [phone], [place] - [facility] 12/15/2022 19:21:14 OBGyn Episode No OBEpisode recorded.
--- OUTSIDE RECORDS SUMMARY | 2024-06-10 09:45 | XMS_ITS | Encounter Summary ---
Author Organization [facility] Address [address] [place] [address] Care Team Providers Care District Gauger Name Role Phone Mj Rodriguez MD Primary Care Provider Reason for Referral * Diagnostic Imaging (Routine) - Pending Review Specialty Diagnoses / Procedures Referred By Contac t Referred To Contact Diagnoses Conductive hearing loss of right ear, unspecified hearing status on contralateral side Procedures CT Mastoid w/o contrast Benjamin Rivera MD [address] [place] [address] [place] HUERTA Referral ID Status Reason Start Date Expiration Date V isits Requested Visits Authorized [id number] Pending Review 06/01/2024 06/02/2025 1 1 Reason for Visit * Reason Comments Ear Fullness Encounter Details Date Type Department Care Team (Latest Contact Info) Description 06/01/2024 8:15 AM EST Office Visit [facility] [address] [place] [address] Benjamin Rivera MD [address] [place] [phone] Conductive hearing loss of right ear, unspecified hearing status on contralateral side (Primary Dx); Mixed conductive and sensorineural hearing loss of right ear with restricted hearing of left ear; Chronic serous otitis media, right ear; Postnasal drip Social History Tobacco Use Types Packs/Day Years [...] PM EST documented as of this encounter Last Filed Vital Signs Vital Sign Reading Time Taken Comments Blood Pressure - - Pulse - - Temperature - - Respiratory Rate - - Oxygen Saturation - - Inhaled Oxygen Concentration - - Weight 54.8 kg (120 lb 13 oz) 06/01/2024 8:22 AM EST Height 156 cm (5' 1.42 ) 06/01/2024 8:22 AM EST Body Mass Index 22.52 06/01/2024 8:22 AM EST documented in this encounter Progress Notes * Benjamin Rivera MD - 06/01/2024 8:15 AM EST Images from the original note were not included. [address] [facility] [phone] Loc: [phone] Encounter Date: 06/01/2024 Chief Complaint Patient presents with Ear Fullness 1. Conductive hearing loss of right ear, unspecified hearing status on contralateral side - CT Mastoid w/o contrast; Future - CT Mastoid w/o contrast 2. Mixed conductive and sensorineural hearing loss of right ear with restricted hearing of left ear 3. Chronic serous otitis media, right ear 4. Postnasal drip ASSESSMENT AND PLAN Gayla is experiencing improvement in her right ear following myringotomy and fluid aspiration, though some dullness in hearing persists. The nasal spray has been effective in relieving her symptoms,but it has caused nasal irritation and bleeding. The dry patch in her throat may be due to local irritation or possibly silent reflux. Further evaluation with imaging is warranted to assess for any re sidual fluid or mastoid process. - Hold off on triamcinolone nasal spray for one week and use nasal saline instead - Resume nasal spray after one week if no further bleeding occurs - Perform imaging at [facility] to assess for residual fluid behind the right ear - Discuss results and next steps over the phone after imaging - Consideration of placing a PE tube based on imaging HISTORY OF PRESENT ILLNESS Gayla Cornejo is a 63-year-old female who presents for follow-up three weeks after myringotomy and fluid aspiration of the right ear for chronic serous otitis media and mixed hearing loss. She reports significant improvement but still experiences some dullness in hearing. She has been using triamcinolone nasal spray, which has helped her feel better overall, but she has noted nosebleeds in the mornings for the past week. She also describes a dry patch in the back of her throat, which has persisted despite drinking water and using honey cough drops. PHYSICAL EXAM The patient was in no acute distress and breathing comfortably on exam. Examination of the ears, nose, oral cavity, oropharynx, and neck was completed and found to be within normal limits with the following notable exceptions and findings highlighted here: - Left ear appears healthy - Right ear shows no evidence of inflammation or fluid - Tuning fork test: Louder on the right side - Nasal septum shows irritation - Throat examination: No abnormalities noted DIAGNOSTIC TESTING REVIEWED Gayla will undergo imaging at [facility] to assess for residual fluid behind the right ear. This will provide more information on the deeper parts of the ear that are not visible during thephysical exam. PAST MEDICAL HISTORY Past Medical History: Diagnosis [...] Drug use: Never MEDICATIONS Current Outpatient Medications: Breztri Aerosphere 160-9-4.8 MCG/ACT Aerosol, Inhale 2 puffs 2 times a day., Disp: , Rfl: triamcinolone (NASACORT AQ) 55 MCG/ACT Aerosol nasal spray, 2 sprays into each nostril daily., Disp: 1 each, Rfl: 3 ALLERGIES No Known Allergies VISIT ORDERS 1. Conductive hearing loss of right ear, unspecified hearing status on contralateral side - CT Mastoid w/o contrast; Future - CT Mastoid w/o contrast 2. Mixed conductive and sensorineural hearing loss of right ear with restricted hearing of left ear 3. Chronic serous otitis media, right ear 4. Postnasal drip Benjamin Rivera MD documented in this encounter Plan of Treatment Scheduled Orders Name Type Priority Associated Diagnoses Orde r Schedule CT Mastoid w/o contrast Imaging Routine Conductive hearing loss of right ear, unspecified hearing status on contralateral side Expected: 06/01/2024, Expires: 06/01/2025 documented as of this encounter Visit Diagnoses Diagnosis Conductive hearing loss of right ear, unspecified hearing status on contralateral side- Primary Mixed conductive and sensorineural hearing loss of right ear with restricted hearing of left ear Chronic serous otitis media, right ear Postnasal drip documented in this encounter Care Teams District Gauger Relationship Specialty Start Date End Date Mj Rodriguez MD [address] [place] [id number] PCP - General Internal Medicine 05/12/24 documented as of this encounter
--- OUTSIDE RECORDS SUMMARY | 2024-06-10 09:45 | XMS_ITS ---
Author Name [facility] Organization Unknown History of Medication Use Medication Directions Dispensed Refills Start Date End Date Stat triamcinolone (NASACORT AQ) 55 MCG/ACT Aerosol nasal spray 2 sprays into each nostril daily. 05/12/2024 active Breztri Aerosphere 160-9-4.8 MCG/ACT Aerosol Inhale 2 puffs 2 times a day. 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 ProblemAct [facility] Mixed conductive and sensorineural hearing loss of right ear with restricted hearing of left ear active EncounterDiagnosisAct [facility] Asthma active 2024-05-12 ProblemAct [facility] Postnasal drip active EncounterDiagnosisAct [facility] Conductive hearing loss of right ear, unspecified hearing status on contralateral side active EncounterDiagnosisAct [facility] Immunizations Vaccine Date Source Lot Number Status Influenza, Trivalent (FLUARI X, AFLURIA, FLULAVAL, FLUZONE) Preservative Free IM 02/28/2022 [facility] [id number] completed Influenza Virus Trivalent Sp lit Vaccine (MDV) IM 02/28/2022 [facility] [id number] completed Influenza Virus Trivalent Sp lit Vaccine (MDV) IM 04/12/2020 [facility] [id number] completed Influenza, Quadrivalent (FLU ARIX, AFLURIA, FLULAVAL, FLUZONE) Preservative Free IM 04/12/2020 [facility] [id number] completed
--- OUTSIDE RECORDS SUMMARY | 2024-06-10 09:45 | XMS_ITS | Patient Health Record ---
Author Organization [facility] Address [address] [place] [address] Care Team Providers Care Client Delivery Manager Name Role Phone Magui Baez MD Primary Care Provider Santos Flores Unavailable [phone] Reason For Referral No Information Encounters Encounter Location Date Provider Diagnosis [facility] [address] [place] [address] 08/07/2023 Santos Polanco Plan Of Treatment No Information Insurance Providers Payer Name Payer Address Payer Phone Subscriber Number Group Number Insured Name Patient Relationship to Insured Coverage Start Date Coverage End Date [facility] [address] [place] [address] [phone] [id number] Gayla Moody Self - patient is the insured
--- OUTSIDE RECORDS SUMMARY | 2024-06-10 09:45 | XMS_ITS | Clinical Summary ---
Author Organization [facility] Address [address] [place] [address] Care Team Providers Care Television Announcer Name Role Phone Mj Rodriguez MD Primary Care Provider Allergies No known active allergies Medications Medication Sig Dispensed Refills Start Date End Date Status Breztri Aerosphere 160-9-4.8 MCG/ACT Aerosol Inhale 2 puffs 2 times a day. 04/14/2024 Active triamcinolone (NASACORT AQ) 55 MCG/ACT Aerosol nasal sprayIndications:Aircraft Time Clerk susan serous otitis media, right ear 2 sprays into each nostril daily. 1 each 3 05/12/2024 06/11/2024 Active Active Problems Problem Noted Date Diagnosed Date Asthma 05/12/2024 HLD (hyperlipidemia) 05/12/2024 Insomnia 05/12/2024 Low vitamin D level 05/12/2024 Celiac artery stenosis 04/27/2024 Celiac artery dissection 02/17/2024 Encounters Date Type Department Care Team Description 06/01/2024 8:15 AM EST Office Visit [facility] [address] [address] Benjamin Rivera MD Conductive hearing loss of right ear, unspecified hearing status on contralateral side (Primary Dx); Mixed conductive and sensorineural hearing loss of right ear with restricted hearing of left ear; Chronic serous otitis media, right ear; Postnasal drip 05/23/2024 Scanned Document [facility] [address] [place] [address] Boaz Nicole MD 05/19/2024 Telephone [facility] [address], [place] [phone] Benjamin Rivera MD 05/12/2024 10:00 AM EST Clinical Support [facility] [address] [phone] Benjamin Rivera MD Czaplicki, Allison, Au.D Mixed conductive and sensorineural hearing loss of right ear with restricted hearing of left ear (Primary Dx); Sensorineural hearing loss (SNHL) of left ear with restricted hearing of right ear; Postnasal drip; Chronic serous otitis media, right ear; Dysphonia 04/01/2024 Orders Only [facility] [address] [place] [address] Boaz Nicole MD from Last 3 Months Immunizations Name Administration Dates Next Due Influenza Virus Trivalent Split Vaccine (MDV) IM 02/28/2022,04/12/2020 Influenza, Quadrivalent (FLU ARIX, AFLURIA, FLULAVAL, FLUZONE) Preservative Free IM 04/12/2020 Influenza, Trivalent (FLUARI X, AFLURIA, FLULAVAL, FLUZONE) Preservative Free IM 02/28/2022 Family History Medical History Relation Name Comments Autoimmune disease Father Autoimmune disease Mother Heart disease Mother Stroke Mother Relation Name Status Comments Father Mother Social History Tobacco Use Types Packs/Day Years [...] not to disclose 2024 1:20 PM EST Last Filed Vital Signs Vital Sign Reading Time Taken Comments Blood Pressure - - Pulse - - Temperature - - Respiratory Rate - - Oxygen Saturation - - Inhaled Oxygen Concentration - - Weight 54.8 kg (120 lb 13 oz) 06/01/2024 8:22 AM EST Height 156 cm (5' 1.42 ) 06/01/2024 8:22 AM EST Body Mass Index 22.52 06/01/2024 8:22 AM EST Plan of Treatment Health Maintenance Due Date Last Done Comments Hepatitis C Virus Screening 1960 HIV Screening 09/30/1975 DTaP/Tdap/Td Vaccines (1 - Tdap) 1981 Pneumococcal Vaccines 50+ (1 of 2 - PCV) 1981 Pap Smear (Ages 21-65) 09/30/1983 Mammogram 2002 Colonoscopy 09/30/2007 Zoster (Shingles) Vaccine (1 of 2) 2012 RSV Vaccine 60 years and older and Patients (1 - Risk 60-74 years 1-dose series) 2022 Influenza Vaccine 11/12/2023 02/28/2022, , 04/12/2020, Additional history exists COVID-19 Vaccine ( season) 2023 05/03/2021, 05/25/2020, 05/04/2020 Hepatitis B Vaccines Aged Out No long er eligible based on patient's age to complete this topic Procedures Procedure Name Priority Date/Time Associated Diagnosis [...] ear with restricted hearing of left ear AMB REFERRAL TO ENT Routine 04/01/2024 1 1:55 AM EST from Last 3 Months Results * Audiometry (05/12/2024 10:00 AM EST) Narrative Maile Madison Au.D - 05/12/2024 10:00 AM EST Rhiannon Barbosa ? 05/12/2024 10:30 AM Procedure Note Rhiannon Barbosa - 05/12/2024 10:00 AM EST Images from the original note were not included. Benjamin Rivera MD AUDIOLOGY SERVICES O RDERABLES * Amb Referral to ENT (04/01/2024 11:55 AM EST) Boaz Nicole MD OUTPATIENT REFERRAL ORDERABLES from Last 3 Months Care Teams Television Announcer Relationship Specialty Start Date End Date Mj Rodriguez MD [address] [place] [address] PCP - General Internal Medicine 05/12/24
--- OUTSIDE RECORDS SUMMARY | 2024-06-10 09:45 | XMS_ITS ---
Author Organization [facility] Address [address] [place] [address] Care Team Providers Care Airport Refueling Handler Name Role Phone Sasha CALVILLO, Magui Primary Care Provider Santos Flores Unavailable [phone] carlton apt Encounters Encounter Location Date Provider Diagnosis [address] [address] 08/07/2023 Santos Polanco Plan Of Treatment No Information Progress Notes * Daily JOHNB: (62 yo F)Acc No.[id number]:08/07/2023 Patient:?Marc John :1960???Age:62 Y???Sex:Female Address:[address] [place] [address], [phone] * true * Date:? Generated for Taylor figueroa/Taye/eTransmitting on:?06/10/2024 09:45 AM EST
--- OUTSIDE RECORDS SUMMARY | 2024-06-10 09:45 | XMS_ITS ---
Author Organization [facility] Address [address] [place] [address] Care Team Providers Care Bus Person Dishwasher Name Role Phone Sasha CALVILLO, Magui Primary Care Provider Santos Flores Unavailable [phone] Encounters Encounter Location Date Provider Diagnosis [facility] [address] [place] [address] 08/28/2023 Santos Polanco Plan Of Treatment No Information Progress Notes * ANILEVIANTONIETTARehan YOSTMinaB: (63 yo F)Acc No.[id number]:08/28/2023 Progress Notes Patient:?Marc JOHN Provider:?Santos Polanco DPM :1960???Age:62 Y???Sex:Female D ate:08/28/2023 Address:[address] [place], [place] [phone] Pcp:Magui Baez MD Subjective: * Chief Complaints: * ??? * Medical History:? Objective: * Vitals:? Assessment: Plan: * Treatment: * Images: * The named appointment provid er may or may not be the originator of this progress note, and it is not deemed complete until electronically signed by the appointment provider. Sign off status: Pending * Provider:Juaquin Polanco DPM Date:?2023 Generated for Taylor figueroa/Taye/eTransmitting on:?06/10/2024 09:45 AM EST
--- OUTSIDE RECORDS SUMMARY | 2024-06-10 09:46 | XMS_ITS ---
Author Organization [facility] Address [address] [place] [address] Care Team Providers Care Drafter Geophysical Name Role Phone Sasha CALVILLO, Magui Primary Care Provider Santos Flores Unavailable [phone] Hoffmann Encounters Encounter Location Date Provider Diagnosis [facility] [address] [place] [address] 07/10/2023 Santos Polanco Plan Of Treatment No Information Progress Notes * KARENJOSERehan YOSTaDOB: (63 yo F)Acc No.[id number]:07/10/2023 Progress Notes Patient:?Marc JOHN Provider:?Santos Polanco DPM :1960???Age:62 Y???Sex:Female D ate:07/10/2023 Address:[address] [place], [place] [phone] Pcp:Magui Baez MD Subjective: * Chief Complaints: * ???1. Dr Hoffmann. * Medical History:? Objective: * Vitals:? Assessment: Plan: * Treatment: * Images: * The named appointment provid er may or may not be the originator of this progress note, and it is not deemed complete until electronically signed by the appointment provider. Sign off status: Pending * Provider:?Santos Polanco DPM Date:?2023 Generated for Brittneyi henry/Taye/eTransmitting on:?06/10/2024 09:45 AM EST
== END 2024-06-10 09:46 | disposition home or self-care (01) ==
PROVIDERS: PCP Internal Medicine; Visit Provider Hospitalist
DX: J45.50 Severe persistent asthma, uncomplicated (principal); J98.4 Other disorders of lung; J67.9 Hypersensitivity pneumonitis due to unspecified organic dust; Z87.09 Personal history of other diseases of the respiratory system; R76.8 Other specified abnormal immunological findings in serum
CPT/HCPCS: 99214

== ENCOUNTER 2024-06-24 12:40 | Outpatient (REF) | payer OTHER, SELFPAY ==
[2024-06-24 15:02] LABS: Basophils Percent Auto 0.4 % (0-2); Imm Gran Abs Auto 0.01 X10*3/uL (0.00-0.03); Imm Gran Pct Auto 0.2 % (0.0-0.4); MANUAL DIFF FLAG SCAN; Mean Corpuscular Volume 85.3 fL (80.0-98.0); Monocytes Absolute Auto 0.4 X10*3/uL (0.1-1.2); PLT CLUMP 1; SCAN SMEAR FLAG 1
[2024-06-24 15:04] LABS: Eosinophils Absolute Auto 0.2 X10*3/uL (0.0-0.4); Eosinophils Percent Auto 3.4 % (0-4); Hematocrit 36.7 % (37.0-47.0); Hemoglobin 12.8 g/dl (12.0-16.0); Lymphocytes Percent Auto 21.5 % (20-40); Mean Corpuscular HGB Conc 34.9 g/dl (31.0-35.0); Mean Corpuscular Hemoglobin 29.8 pg (27.0-33.0); Mean Platelet Volume 12.7 fL (9.4-12.3); Monocytes Percent Auto 8.6 % (2-11); Neutrophils Absolute Auto 3.1 x10*3/uL (2.0-8.3); Neutrophils Percent Auto 65.9 % (45-73)
[2024-06-24 15:21] LABS: Platelet Count 121 X10*3/uL (160-400); White Blood Count 4.7 X10*3/uL (4.8-10.8)
[2024-06-24 15:22] LABS: SLIDE REVIEW VERIFIED
[2024-06-24 15:40] LABS: Rheumatoid Factor 14.4 IU/mL (<15.0)
[2024-06-24 15:43] LABS: Erythrocyte Sedimentation Rate 6 MM/HR (0-20)
--- OUTSIDE RECORDS SUMMARY | 2024-06-24 15:51 | XMS_ITS | Encounter Summary ---
Author Organization [facility]ly [facility] Address [address] [place] [address] Care Team Providers Care Diesel Powerplant Mechanic Name Role Phone Mj Rodriguez MD Primary Care Provider Reason for Referral * Diagnostic Imaging (Routine) - Pending Review Specialty Diagnoses / Procedures Referred By Contac t Referred To Contact Diagnoses Conductive hearing loss of right ear, unspecified hearing status on contralateral side Procedures CT Mastoid w/o contrast Benjamin Rviera MD [address] [place] [address] GEORGIA HUERTA Referral ID Status Reason Start Date Expiration Date V isits Requested Visits Authorized [id number] Pending Review 06/01/2024 06/02/2025 1 1 Reason for Visit * Reason Comments Ear Fullness Encounter Details Date Type Department Care Team (Latest Contact Info) Description 06/01/2024 8:15 AM EST Office Visit [facility] [address] [place] [address] Benjamin Rivera MD [address] [place] [phone] Conductive hearing loss of right ear, unspecified [...] the original note were not included. 15 [facility] [address] Loc: [phone] Encounter Date: 06/01/2024 Chief Complaint Patient presents [...] further bleeding occurs - Perform imaging at [facility] to assess for residual fluid behind [...] TESTING REVIEWED Gayla will undergo imaging at [facility] to assess for residual fluid behind [...] Description 07/12/2024 8:45 AM EDT Clinical Support [facility] [place] [address] [facility] [phone] Willy Scott MD [address] [facility] [place] [phone] documented as of this encounter Procedures Procedure [...] your patient to us, Gil Jackson MD [phone] (Electronically Signed - 06/13/2024 18:35) Copy: ROYAL DRAPER MD [facility]- PULMON[facility] [address] [place] [address] [place] [address] Narrative 06/13/2024 6:[address] TEMPORAL BONES WITHOUT CONTRAST DATE: ??06/13/2024 5:27 PM PETROLEUM ENGINEERING TEACHER INDICATION: 63-year-old female, ??Conductive hearing loss, [...] BONES WITHOUT CONTRAST DATE: 06/13/2024 5:27 PM PETROLEUM ENGINEERING TEACHER INDICATION: 63-year-old female, Conductive hearing loss, [...] Jackson MD 06/13/2024 06:35 PM EST RPWorkstation: [id number] Thank you for referring your patient to us, Gil Jackson MD [phone] (Electronically Signed - 06/13/2024 18:35) Copy: ROYAL DRAPER MD [facility]- [address] [place] [address] Benjamin Rivera MD IMG CT ORDERABLES documented in this encounter Visit Diagnoses Diagnosis Conductive hearing loss of right ear, unspecified hearing status on contralateral side- Primary Mixed conductive and sensorineural hearing loss of right ear with restricted hearing of left ear Chronic serous otitis media, right ear Postnasal drip documented in this encounter Care Teams Diesel Powerplant Mechanic Relationship Specialty Start Date End Date Mj Rodriguez MD [address] [place] [address] PCP - General Internal Medicine 05/12/24 documented as of this encounter
--- OUTSIDE RECORDS SUMMARY | 2024-06-24 15:51 | XMS_ITS | Encounter Summary ---
Author Organization [facility] Address [address] [place] [address] Care Team Providers Care Manufacturing Operations Manager Name Role Phone Mj Rodriguez MD Primary Care Provider Encounter Details Date Type Department Care Team ([facility] st Contact Info) Description 06/16/2024 Telephone [facility] [address] [place] [address] Benjamin Rivera MD [address] [place] [address] Social History Tobacco Use Types Packs/Day Years [...] Aware of address and location of the [place] office. * Telephone Encounter - Edith Malhotra MA - 06/22/2024 2:27 PM EDT Patient calls in again, stating she keeps missing your call. CB# [phone] * Telephone Encounter - Edith Malhotra MA - 06/17/2024 10:15 AM EST Patient calls in and LM stating that she is returning your call. CB# [phone] * Telephone Encounter - Edith Malhotra MA - 06/16/2024 9:00 AM EST [facility] called in to make sure we received Gayla's results from the CT temp bones. documented in this encounter Plan of Treatment Upcoming Encounters Date Type Department Care Team (Late st Contact Info) Description 07/12/2024 8:45 AM EDT Clinical Support [facility] [address] [place] [address] Willy Scott MD [address] [place] [address] documented as of this encounter Visit Diagnoses Not on filedocumented in this encounter Care Teams Manufacturing Operations Manager Relationship Specialty Start Date End Date Mj Rodriguez MD [address] [place] [address] PCP - General Internal Medicine 05/12/24 documented as of this encounter
--- OUTSIDE RECORDS SUMMARY | 2024-06-24 15:51 | XMS_ITS | Encounter Summary ---
Author Organization [facility] Address [address] [place] [address] Care Team Providers Care Screw Machine Operator Name Role Phone Mj Rodriguez MD Primary Care Provider Encounter Details Date Type Department Care Team (Late Contact Info) Description 05/23/2024 Scanned Document HH PULMONARY SVC IP [address] [place] [address] Boaz Nicole MD [address] [place] [address] Social History Tobacco Use Types Packs/Day Years [...] Description 07/12/2024 8:45 AM EDT Clinical Support [facility] [place] [address] [place] [address] Willy Scott MD [address] [place] [address] documented as of this encounter Visit Diagnoses Not on filedocumented in this encounter Care Teams Screw Machine Operator Relationship Specialty Start Date End Date Mj Rodriguez MD [address] [place] [address] PCP - General Internal Medicine 05/12/24 documented as of this encounter
--- OUTSIDE RECORDS SUMMARY | 2024-06-24 15:51 | XMS_ITS | Clinical Summary ---
Author Organization [facility] Address [address] [place] [address] Care Team Providers Care Siding Installer Name Role Phone Mj Rodriguez MD Primary [...] Type Department Care Team Description 06/16/2024 Telephone [facility] [address] [address] Benjamin Rivera MD 06/01/2024 8:15 AM EST Office Visit [facility] [address] [address] Benjamin Rivera MD Conductive hearing loss of right ear, unspecified hearing status on contralateral side (Primary Dx); Mixed conductive and sensorineural hearing loss of right ear with restricted hearing of left ear; Chronic serous otitis media, right ear; Postnasal drip 05/23/2024 Scanned Document HH PULMONARY SVC IP [address] [place] [address] Boaz Nicole MD 05/19/2024 Telephone [facility] [address] [address] Benjamin Rivera MD 05/12/2024 10:00 AM EST Clinical Support [facility] [address] [address] Benjamin Rivera MD Czaplicki, Allison, Au.D Mixed conductive and sensorineural hearing loss of right ear with restricted hearing of left ear (Primary Dx); Sensorineural hearing loss (SNHL) of left ear with restricted hearing of right ear; Postnasal drip; Chronic serous otitis media, right ear; Dysphonia 04/01/2024 Orders Only [facility] [address] [place] [address] Boaz Nicole MD from Last [...] Description 07/12/2024 8:45 AM EDT Clinical Support [facility] [place] [address] [place] [phone] Willy Scott MD [address] [place] [address] Health Maintenance Due Date Last [...] your patient to us, Gil Jackson MD [id number] (Electronically Signed - 06/13/2024 18:35) Copy: BOAZ NICOLE MD [facility]- [address] [place], [place] [address] Narrative 06/13/2024 6:[address] TEMPORAL BONES WITHOUT CONTRAST DATE: ??06/13/2024 5:27 PM RETAIL MANAGEMENT KEYHOLDER INDICATION: 63-year-old female, ??Conductive hearing loss, unilateral, [...] BONES WITHOUT CONTRAST DATE: 06/13/2024 5:27 PM RETAIL MANAGEMENT KEYHOLDER INDICATION: 63-year-old female, Conductive hearing loss, unilateral,right [...] Jackson MD 06/13/2024 06:35 PM EST RPWorkstation: [id number] Thank you for referring your patient to us, Gil Jackson MD [phone] (Electronically Signed - 06/13/2024 18:35) Copy: BOAZ NICOLE MD [facility]- [address] [place] [address] Benjamin Rivera MD IMG CT ORDERABLES [...] ORDERABLES from Last 3 Months Care Teams Siding Installer Relationship Specialty Start Date End Date Mj Rodriguez MD [address] [place] [address] [phone] PCP - General Internal Medicine 05/12/24
[2024-06-24 17:13] LABS: Alanine Aminotransferase 18 U/L (0-31); Albumin Level 4.3 g/dL (3.5-5.0); Alkaline Phosphatase 52 U/L (39-117); Anion Gap 11 (12-20); Aspartate Amino Transferase 28 U/L (5-31); Bilirubin Total 0.6 mg/dL (0.0-1.0); Blood Urea Nitrogen 19 mg/dL (9-16); C Reactive Protein < 0.10 mg/dL (< or = 0.50); Calcium 9.3 mg/dL (8.4-10.2); Carbon Dioxide 26 mmol/L (22-29); Chloride 107 mmol/L (96-108); Estimated Glomerular Filt Rate > 60; Glucose Random 85 mg/dL (60-115); Potassium 3.8 mmol/L (3.3-5.1); Sodium 140 mmol/L (135-145); Total Protein 7.5 g/dL (6.5-8.0)
[2024-06-27 11:39] LABS: Complement C3 98 mg/dL (83-193)
[2024-06-28 13:08] LABS: Neutrophil Cyto Ab Screen NEGATIVE (NEGATIVE)
[2024-06-28 14:09] LABS: Anti-Centromere B Antibodies <1.0 NEG AI (<1.0 NEG); Cardiolipin IgG Ab <2.0 GPL-U/mL; Cardiolipin IgM Ab <2.0 MPL-U/mL
[2024-06-28 23:04] LABS: Beta-2 Glycoprotein IgA <2.0 U/mL (<20.0); Beta-2 Glycoprotein IgG <2.0 U/mL (<20.0); Beta-2 Glycoprotein IgM 3.8 U/mL (<20.0)
[2024-06-29 05:29] LABS: PTT (LAC) Screen 27 sec (<=40)
[2024-06-29 13:57] LABS: Antibody to SS-A Antigen <1.0 NEG AI (<1.0 NEG); Antibody to SS-B Antigen <1.0 NEG AI (<1.0 NEG); Myeloperoxidase Antibody <1.0 AI; Proteinase 3 PR3 Antibodies <1.0 AI; SM/Ribonucleoprotein Ab <1.0 NEG AI (<1.0 NEG); Scleroderma 70 Antibody <1.0 NEG AI (<1.0 NEG); Smith Protein <1.0 NEG AI (<1.0 NEG)
[2024-06-29 14:23] LABS: Aldolase 4.3 U/L (<=8.1)
[2024-06-30 22:59] LABS: Ej Ab <11 SI (<11); Jo-1 Ab <11 SI (<11); MDA5 Ab <11 SI (<11); Mi-2 alpha Ab <11 SI (<11); Mi-2 beta Ab <11 SI (<11); NXP-2 (MJ) Ab <11 SI (<11); Oj Ab <11 SI (<11); Pl-12 Ab <11 SI (<11); Pl-7 Ab <11 SI (<11); SRP Ab <11 SI (<11); TIF1 gamma Ab <11 SI (<11)
== END 2024-06-24 12:41 | disposition home or self-care (01) ==
LOC: HO.LAB 12:40
PROVIDERS: PCP Internal Medicine; Visit Provider Student in an Organized Health Care Education/Training Program
DX: J84.9 Interstitial pulmonary disease, unspecified (principal)
CPT/HCPCS: 36415; 80053; 82085; 82550; 84182; 85025; 85597; 85598; 85613; 85652; 85730; 86021; 86036; 86140; 86146; 86147; 86160; 86235; 86431

== ENCOUNTER 2024-06-24 12:40 | Outpatient (AMB) | payer OTHER, SELFPAY ==
[2024-06-24 12:42] VITALS: BP 110/68; PULSE 68; O2SAT 95; BMI 22.3
--- NOTE | 2024-06-24 12:42 | A.OFFVIS_ITS ---
Vital Signs 06/24/24 12:42 Height 5 ft 1 in Weight 117 lb 15.157 oz BMI 22.3 BP 110/68 Blood Pressure Location Lt brachial Position Sitting Pulse 68 Pulse Source Pulse Oximeter Pulse Oximetry (%) 95 Oxygen Delivery Method Room Air Intake Visit Reasons: abnormal lab res Intake Note: New patient internally referred by Boaz Nicole [facility] [place] Pulmonology. Patient presents for abnormal lab results. She states her right arm has been bothering her for 4-6 months. She tried Meloxicam for the pain as needed. Allergies No Known Allergies Allergy (Verified 06/24/24 12:47) Medication List - Last Reconciled 06/24/24 by Julee Magaña MD albuterol sulfate 2.5 mg (3 mL) inhalation Q6H PRN 30 days albuterol sulfate 90 mcg/actuation 2 inhalations inhalation Q6H PRN 30 days benzonatate 200 mg PO BID PRN 30 days budesonide 0.5 mg (2 mL) inhalation DAILY 30 days dzopnjiqdm-dpjrjktb-hflqainyzb 160-9-4.8 mcg/actuation (Breztri Aerosphere) 2 inhalations inhalation BID 30 days cholecalciferol (vitamin D3) 25 mcg PO DAILY estradiol (Yuvafem) 10 mcg vaginal 2XW guaifenesin ER (Mucinex) 600 mg PO BID hydrocortisone valerate 0.2% 1 appl topical BID PRN [lambdapil PO 1XD] magnesium 250 mg PO DAILY meloxicam 15 mg PO DAILY PRN montelukast 10 mg PO BEDTIME PRN triamcinolone acetonide 2 sprays intranasal DAILY HPI Comments Details: Patient is a 63-year-old female history of asthma and biopsy-proven acute fibrinous organizing pneumonia here today for evaluation in the setting of a positive KRISTOPHER and anti CCP Patient feels that everything started back in 2008 She went to the ER with excruciating chest pain, diagnosed as a muscle issue Overall was okay since then Then in 2012, fell ill in November. Had flu symptoms, was given antibiotics x 2 rounds and was finally sent to the ER. Was given different courses of antibiotics for after 2-3 ER visits. But even then she did not improve. Was having worsening SOB, fatigue and hypoxia. She was finally admitted and started on IV antibiotics, and had a bronchoscopy but that was non diagnositic. Subsequently had to get a biopsy and diagnsoed with acute fibrinous organizing pneumonia. She was initially on prednisolone and also CellCept for period of time but was subsequently able to wean off of these medications since 2019. In March 2023 she followed up with pulmonology and was noticing worsening hoarseness and chest congestion. That was initially attributed to flu and this improved as the chest x-ray showed no acute disease and her PFTs showed low to normal total lung capacity with a mild diffusion impairment. In January of 2024 she continued her follow up with palm reporting flu-like symptoms for about 2 weeks associated with a productive cough. She was given a course of doxycycline and prednisone without improvement. She was then started on Augmentin. Despite antibiotics she had worsening respiratory symptoms with worsening shortness of breath and hypoxia. CT a done at that time showed pneumonitis without any evidence of pneumonia she also noted ear pressure and sinus discomfort. She received a 3rd course of another antibiotic: Azithromycin which she reported had improvement in her symptoms. She also followed up with ENT and had drainage of her ear. Her CT scan improved and she was able to taper off the prednisone Current symptoms: Right arm feels uncomfortable Movements and muscle pressure. 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 Denies muscle weakness, difficulty combing her hair or reaching for objects above her head Denies difficulty getting up from a seated position or walking up stairs Of note her father has a history of pulmonary fibrosis. Nephew with recurrent spontaneous PTx [facility] Medical History (Updated 05/06/24 @ 21:51 by Boaz Nicole MD) Otitis media Bronchopneumonia Pneumonitis Viral syndrome H/O interstitial lung disease Hypersensitivity pneumonitis Organizing pneumonia Asthma Social History Patient Tobacco Use Status: Never used Tobacco Review of Systems Const Details: Review of Systems Constitutional: Denies fever, chills, weight loss ENT: Denies vision changes, eye pain or eye redness, dental caries, dry mouth GI: Denies nausea, vomiting, diarrhea, abdominal pain, change in BM Pulm: Denies SOB, FELDMAN, hemoptysis, wheezing Cards: Denies chest pain, palpitations Skin: Denies Raynaud's, rash, nail changes, photosensitivity, GLOBAL RISK MANAGEMENT DIRECTOR: Denies headaches, weakness, paresthesias, recurrent falls MSK: as per HPI All other systems reviewed and are unremarkable except noted above Physical Exam Vital Signs: BMI result Body Mass Index 22.3 Vital signs reviewed Physical Examination CONSTITUITIONAL Patient alert and cooperative. Well appearing and in no apparent painful distress HEENT Conjunctiva and sclera clear. ?Pupils equal round and reactive to light. ?No lymphadenopathy. ? CHEST/RESPIRATORY SYSTEM Normal respiratory effort and able to speak in complete sentences. ?Clear to auscultation bilaterally. ?No crackles, rales, rhonchi, wheezes heard. CARDIAC SYSTEM Regular rate and rhythm. ?S1 and S2 heard no murmurs. ?Radial pulses intact bilaterally MSK Hands: ?Good security systems specialist strength bilaterally. No deformities noted. ?No synovitis noted to the MCPs, PIPs or DIPs. ?No tenderness to palpation of these joints. Wrists: ?Full range of motion at the wrists without pain. ?No tenderness to palpation or synovitis noted to the wrists. Elbows: Full range of motion without pain. No tenderness, weakness, swelling, increased warmth or erythema. Shoulders: Full range of motion without pain. No tenderness, weakness, swelling, increased warmth or erythema. Hips: Full range of motion without pain. Hip bursa: No tenderness to palpation Knees: ?Full range of motion. ?No tenderness, swelling, increased warmth or erythema.?No effusion or crepitations Ankles: Full range of motion. ?No tenderness, swelling, increased warmth or erythema.? Feet: ?Negative squeeze test. ?No tenderness to palpation or swelling of the MTPs. Tender points:?No tenderness to palpation of the bilateral trapezius, supraspinatus, greater trochanters, anterior costochondral junctions, bilateral gluteal areas, bilateral suboccipital muscle insertions Right Left Neck flexion 5 Shoulder abduction 5 5 Shoulder adduction 5 5 Elbow flexion 5 5 Elbow extension 5 5 Outside Plant Supervisor strength 5 5 Hip flexion 5 5 Knee flexion 5 5 Knee extension 5 5 Ankle dorsiflexion 5 5 Ankle plantarflexion 5 5 SKIN Skin intact without rashes. Normal nail fold capillary dermoscopy Results Reviewed Results Reviewed: Laboratory Tests 02/12/24 11:10 WBC 5.2 RBC 4.16 L Hgb 12.7 Hct 38.5 Plt Count 172 Immunology labs 02/12/24 11:10 Angiotensin Convert Enz 22.0 IgG Total 945 IgG Subclass 1 474 IgG Subclass 2 349 IgG Subclass 3 44 IgG Subclass 4 34.8 IgE 6 Cycl Citrul Peptide IgG 33 H KRISTOPHER Screen POSITIVE A KRISTOPHER Titer 1:320 H Proteinase 3 (PR3) Ab <1.0 Myeloperoxidase Ab <1.0 Double Strand DNA Ab <1 CT Chest 04/2024 CHEST: THYROID: The thyroid is unremarkable. LUNGS:There is biapical pleural and parenchymal scarring. Additional areas of subpleural scarring are noted bilaterally. There is a suture line along the right major fissure. No pulmonary nodules or focal airspace opacities are identified. MEDIASTINUM: There is no mediastinal lymphadenopathy. LYNDA: Evaluation of the hilar regions is limited by lack of intravenous contrast material. CARDIOVASCULATURE: The heart is normal in size. There is no pericardial effusion. The thoracic aorta is normal in caliber. DEGREE OF CORONARY CALCIFICATION: none PLEURA: There is no pleural effusion. No pneumothorax. MAIN AIRWAYS: The mainstem bronchi and proximal branches are patent. AXILLA: There is no axillary lymphadenopathy. BONES AND SOFT TISSUES: Unremarkable UPPER ABDOMEN: There are hypodense foci in the left lobe of the liver measuring up to 1.6 cm in size which may represent cysts. The visualized portions of the spleen and adrenals have an unremarkable appearance. IMPRESSION: Bilateral pulmonary scarring as described. No pulmonary nodules are identified. Assessment & Plan Assessment & Plan (1) KRISTOPHER positive: Code(s): R76.8 - Other specified abnormal immunological findings in serum Category: Medical Plan: #KRISTOPHER positive and CCP positive in the setting of lung disease The presence of antinuclear antibodies (KRISTOPHER) is associated with connective tissue diseases (CTD). ?However, their presence is found in healthy people especially in women and patients >65. ?In healthy individuals, the frequency of KRISTOPHER has been shown to be 31.7% of individuals at 1:40 serum dilution, 13.3% at 1:80, 5.0% at 1:160, and 3.3% at 1:320 (2). Some drugs and xenobiotics are also important for the development of KRISTOPHER (hydralazine, hydrochlorothiazide, minocycline, terbinafine, ciprofloxacin, furosemide, omeprazole). Moreover, the deficiency of vitamin D in the body of patients correlates with occurrence of these antibodies (1). Gayla has a very long history of pulmonary issues that are concerning for potential autoimmune related underlying condition. However at this time there are no other systemic manifestations that would lead me to believe she has a systemic autoimmune disease. That being said 1 can still have lung related autoimmune disease in the absence of other systemic manifestations, this include things like Sjogren's syndrome, inflammatory myopathies such as anti synthetase syndrome, RA associated lung disease even in the absence of joint pain. I think it is fair for further workup looking for antibodies signifying any of these diseases. Looking at the KRISTOPHER specifically the pattern is dense fine speckled which is ac tually rarely seen in autoimmune disease and more common in normal individuals despite her modest titer. CCP also can be seen in lung disease especially because we believe that citrus delineation of long peptides is usually the precursor to joint disease in patients with rheumatoid arthritis. At this time there is no convincing evidence for autoimmune disease clinically and we will follow up with blood work evaluating for further underlying disease. I will say it is interesting that she developed an otitis media with effusion which can be seen in ANCA associated vasculitis especially when people over the age of 50 develop these new ear symptoms. However her previous ANCA titers were negative but I still think this warrants a recheck. Plan - Check CBC, CMP, ESR, CRP, Anca titers, APS labs, SSA, SSB, anti Cuadra, dsDNA, RF, SPEP, myositis extended panel, JOSE - Follow up in 2 weeks 1. Tor?felicia Sena, Emerita Roman, Jessica Vyas. Antinuclear antibodies in heal thy people and non-rheumatic diseases - diagnostic and clinical implications. Reumatologia. 2018;56(4):243-248. doi: 10.5114/reum.2018.42484. Epub 2017Dec 11. PMID: 34472279; PMCID: [id number]. 2. William EM, Juventino TE, Martínez JS, Netta B, Prachi R, Valeria MJ, Sergo T, Cisco TREVIÑO, Kathi JR, Dee RG, Evelyn RN, Jean JS, Pat NF, Juan Manuel RJ, Takdiana Y, Niko A, Chema MR, Donte TREVIÑO. Range of antinuclear antibodies in healthy individuals. Arthritis Rheum. 1996;40(9):1601-11. doi: 10.1002/art.6493195647. PMID: 7851368. Plan I spent 63 minutes reviewing the pulmonology notes from 2020, imaging and labs, taking a history, examining the patient, discussing the treatment plan, ordering diagnostic work up, answering questions and documenting in the medical record Orders: Orders Beta-2 Glycoprotein Antibody Today J84.9 - Interstitial pulmonary disease, unspecified Cardiolipin Antibodies Today J84.9 - Interstitial pulmonary disease, unspecified Lupus Anticoagulant Panel Today J84.9 - Interstitial pulmonary disease, unspecified Complete Blood Count Auto Diff Today J84.9 - Interstitial pulmonary disease, unspecified Comprehensive Met. Panel Today J84.9 - Interstitial pulmonary disease, unspecified C Reactive Protein Today J84.9 - Interstitial pulmonary disease, unspecified Erythrocyte Sedimentation Rate Today J84.9 - Interstitial pulmonary disease, unspecified Creatine Kinase Total Today J84.9 - Interstitial pulmonary disease, unspecified Complement C4 Today J84.9 - Interstitial pulmonary disease, unspecified ANCA Vasculitides Today J84.9 - Interstitial pulmonary disease, unspecified Scleroderma 70 Antibody Today J84.9 - Interstitial pulmonary disease, unspecified Rheumatoid Factor Today J84.9 - Interstitial pulmonary disease, unspecified Aldolase Today J84.9 - Interstitial pulmonary disease, unspecified Complement C3 Today J84.9 - Interstitial pulmonary disease, unspecified Sm Sm/TIE CUTTER Antibodies Today J84.9 - Interstitial pulmonary disease, unspecified Anti-Centromere B Antibodies Today J84.9 - Interstitial pulmonary disease, unspecified Neutrophil Cytoplasma Ab Today J84.9 - Interstitial pulmonary disease, unspecified Sjogren's Antibodies Today J84.9 - Interstitial pulmonary disease, unspecified MSA Panel 11 Myositis Spec Abs Today J84.9 - Interstitial pulmonary disease, unspecified Coding Level of Care Code New Pt Level 5 (18428) Complex EM visit Add On G2211 Diagnoses KRISTOPHER positive R76.8
--- OUTSIDE RECORDS SUMMARY | 2024-06-24 14:13 | XMS_ITS | Clinical Summary ---
Author Organization [facility] Address [address] [place] [address] Care Team Providers Care Ready Mix Truck Driver Name Role Phone Mj Rodriguez MD Primary Care Provider Allergies No known active allergies Medications Medication Sig Dispensed Refills Start Date End Date Status Breztri Aerosphere 160-9-4.8 MCG/ACT Aerosol Inhale 2 puffs 2 times a day. 04/14/2024 Active triamcinolone (NASACORT AQ) 55 MCG/ACT Aerosol nasal sprayIndications:Chron ic serous otitis media, right ear 2 sprays into each nostril daily. 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 Encounters Date Type Department Care Team Description 06/16/2024 Telephone [facility] [address] [phone] Benjamin Rivera MD 06/01/2024 8:15 AM EST Office Visit [facility] [address] [phone] Benjamin Rivera MD Conductive hearing loss of right ear, unspecified hearing status on contralateral side (Primary Dx); Mixed conductive and sensorineural hearing loss of right ear with restricted hearing of left ear; Chronic serous otitis media, right ear; Postnasal drip 05/23/2024 Scanned Document [facility] IP [address] [place] [address] Boaz Nicole MD 05/19/2024 Telephone [facility] [address] [phone] Benjamin Rivera MD 05/12/2024 10:00 AM EST Clinical Support [facility] [address] [phone] Benjamin Rivera MD Czaplicki, Allison, Au.D Mixed conductive and sensorineural hearing loss of right ear with restricted hearing of left ear (Primary Dx); Sensorineural hearing loss (SNHL) of left ear with restricted hearing of right ear; Postnasal drip; Chronic serous otitis media, right ear; Dysphonia 04/01/2024 Orders Only [facility] [address] [place] [address] Boaz Nicole MD from Last [...] 06/01/2024 8:22 AM EST Plan of Treatment Upcoming Encounters Date Type Department Care Team (Late st Contact Info) Description 07/12/2024 8:45 AM EDT Clinical Support [facility] [place] [address] [place] [phone] Willy Scott MD [address] [place] [address] Health Maintenance Due Date Last Done Comments [...] Procedure Name Priority Date/Time Associated Diagnosis Comments CT MASTOID W/O CONTRAST Routine 06/10/2024 4:17 PM EST Conductive hearing loss of right ear, unspecified hearing status on contralateral side AUDIOMETRY Routine 05/12/2024 10:00 AM EST Sensorineural [...] EST from Last 3 Months Results * CT Mastoid w/o contrast (06/10/2024 4:17 PM EST) Anatomical Region Laterality Modality Head Computed Tomogra phy 06/10/2024 4:00 PM EST 06/10/2024 4:00 PM EST Impressions 06/13/2024 6:35 PM EST 1. Opacification of the right mastoid air cells without coalescence with opacification of Prussaks space and thickening of the tympanic membrane. Findings favor cholesteatoma in the setting of mastoiditis, correlate with direct visualization. 2. Left temporal bone unremarkable. This CT examination was performed using dose optimization techniques as appropriate, variously including the following: * ??Automated exposure control * ??Adjustment of mA and/or kV according to patient size (this includes techniques or standardized protocols for targeted exams where dose is matched to indication/reason for exam; i.e. extremities or head) * ??Use of iterative reconstruction technique Electronically signed by: ??Gil Jackson MD ??06/13/2024 06:35 PM EST Thank you for referring your patient to us, Gil Jackson MD [phone] (Electronically Signed - 06/13/2024 18:35) Copy: BOAZ NICOLE MD [facility] [address] [place], [place] [address] Narrative 06/13/2024 6:[address] TEMPORAL BONES WITHOUT CONTRAST DATE: ??06/13/2024 5:27 PM BILINGUAL TEACHER INDICATION: 63-year-old female, ??Conductive hearing loss, unilateral, right ear, with unrestr; conductive hearing loss- right COMPARISON: None TECHNIQUE: Multiple, non contrasted CT images of the temporal bones were obtained. The images were reformatted in the axial and coronal planes. FINDINGS: LEFT TEMPORAL BONE: The bony and cartilaginous portions of the external auditory canal are normal in appearance. The tympanic membrane is partially visualized and normal in appearance. The scutum and tympanic annulus are intact. The mastoid air cells and mastoid antrum are clear. The epitympanum, mesotympanum, and hypotympanum are normal in appearance. The auditory ossicles are intact and normally articulated. The internal auditory canal is normal in appearance. The course of the left facial nerve is normal in appearance. The cochlear and vestibular aqueducts are normal in caliber. The cochlear and vestibular ultrastructures are normal. The petrous apex and clivus are normal. The jugular bulb, carotid canal, skull base foramina, and sigmoid plate are normal. RIGHT TEMPORAL BONE: The bony and cartilaginous portions of the external auditory canal are normal in appearance. The tympanic membrane is partially visualized and mildly thickened as compared to the left with subtle degree of retraction. Opacification of Prussaks space. The scutum and tympanic annulus are intact. Near complete opacification of the mastoid air cells. The epitympanum, mesotympanum, and hypotympanum are normal in appearance. The auditory ossicles are intact and normally articulated. The internal auditory canal is normal in appearance. The course of the right facial nerve is normal in appearance. The cochlear and vestibular aqueducts are normal in caliber. The cochlear and vestibular ultrastructures are normal. The petrous apex is normal. The jugular bulb, carotid canal, skull base foramina, and sigmoid plate are normal. Procedure Note Gil Jackson MD - 06/13/2024 CT TEMPORAL BONES WITHOUT CONTRAST DATE: 06/13/2024 5:27 PM BILINGUAL TEACHER INDICATION: 63-year-old female, Conductive hearing loss, unilateral,right ear, with unrestr; conductive hearing loss- right COMPARISON: None TECHNIQUE: Multiple, non contrasted CT images of the temporal bones wereobtained. The images were reformatted in the axial and coronal planes. FINDINGS: LEFT TEMPORAL BONE: The bony and cartilaginous portions of the externalauditory canal are normal in appearance. The tympanic membrane ispartially visualized and normal in appearance. The scutum and tympanicannulus are intact. The mastoid air cells and mastoid antrum are clear. The epitympanum, mesotympanum, and hypotympanumare normal in appearance. The auditory ossicles are intact and normallyarticulated. The internal auditory canal is normal in appearance. Thecourse of the left facial nerve is normal in appearance. The cochlear and vestibular aqueducts are normal incaliber. The cochlear and vestibular ultrastructures are normal. Thepetrous apex and clivus are normal. The jugular bulb, carotid canal, skullbase foramina, and sigmoid plate are normal. RIGHT TEMPORAL BONE: The bony and cartilaginous portions of the externalauditory canal are normal in appearance. The tympanic membrane ispartially visualized and mildly thickened as compared to the left withsubtle degree of retraction. Opacification of Prussaks space. The scutum and tympanic annulus are intact. Nearcomplete opacification of the mastoid air cells. The epitympanum,mesotympanum, and hypotympanum are normal in appearance. The auditoryossicles are intact and normally articulated. The internal auditory canal is normal in appearance. The course of the rightfacial nerve is normal in appearance. The cochlear and vestibularaqueducts are normal in caliber. The cochlear and vestibularultrastructures are normal. The petrous apex is normal. The jugular bulb, carotid canal, skull base foramina, and sigmoidplate are normal. IMPRESSION: 1. Opacification of the right mastoid air cells without coalescence withopacification of Prussaks space and thickening of the tympanic membrane.Findings favor cholesteatoma in the setting of mastoiditis, correlate withdirect visualization. 2. Left temporal bone unremarkable. This CT examination was performed using dose optimization techniques asappropriate, variously including the following: * Automated exposure control * Adjustment of mA and/or kV according to patient size (this includestechniques or standardized protocols for targeted exams where dose ismatched to indication/reason for exam; i.e. extremities or head) * Use of iterative reconstruction technique Electronically signed by: Gil Jackson MD 06/13/2024 06:35 PM EST RPWorkstation: [id number] Thank you for referring your patient to us, Gil Jackson MD [phone] (Electronically Signed - 06/13/2024 18:35) Copy: BOAZ NICOLE MD [facility] [address] [place] [address] Benjamin Rivera MD IMG CT ORDERABLES * Audiometry (05/12/2024 10:00 AM EST) Narrative [...] ORDERABLES from Last 3 Months Care Teams Ready Mix Truck Driver Relationship Specialty Start Date End Date Mj Rodriguez MD [address] [place] [address] [phone] PCP - General Internal Medicine 05/12/24
--- OUTSIDE RECORDS SUMMARY | 2024-06-24 14:13 | XMS_ITS | Encounter Summary ---
Author Organization Formerly [facility] Address [address] [place] [address] Care Team Providers Care Social Services Director Name Role Phone Mj Rodriguez MD Primary Care Provider Encounter Details Date Type Department Care Team (Late Contact Info) Description 05/23/2024 Scanned Document [facility] PULMONARY SVC IP [address] [place] [phone] Boaz Nicole MD [address] [place] [address] Social History Tobacco Use Types Packs/Day Years [...] as of this encounter Plan of Treatment Upcoming Encounters Date Type Department Care Team (Late st Contact Info) Description 07/12/2024 8:45 AM EDT Clinical Support [facility] [place] [address] [place] [address] Willy Scott MD [address] [place] [address] documented as of this encounter Visit Diagnoses Not on filedocumented in this encounter Care Teams Social Services Director Relationship Specialty Start Date End Date Mj Rodriguez MD [address] [place] [address] PCP - General Internal Medicine 05/12/24 documented as of this encounter
--- OUTSIDE RECORDS SUMMARY | 2024-06-24 14:13 | XMS_ITS ---
Author Organization [facility] Address [address] [place] [address] Care Team Providers Care Circular Saw Edge Fuser Name Role Phone Sasha CALVILLO, Magui Primary Care Provider Santos Flores Unavailable [phone] carlton apt Encounters Encounter Location Date Provider Diagnosis [address] [address] 08/07/2023 Santos Polanco Plan Of Treatment No Information Progress Notes * Daily JOHNB: (62 yo F)Acc No.[id number]:08/07/2023 Patient:?Marc John :1960???Age:62 Y???Sex:Female Address:[address] [place] [address], [address] * true * Date:? Generated for Taylor figueroa/Taye/eTransmitting on:?06/24/2024 02:13 PM EDT
--- OUTSIDE RECORDS SUMMARY | 2024-06-24 14:13 | XMS_ITS | Encounter Summary ---
Author Organization Formerly [facility] Address [address] [place] [address] Care Team Providers Care Tax Lawyer Name Role Phone Mj Rodriguez MD Primary Care Provider Reason for Referral * Diagnostic Imaging (Routine) - Pending Review Specialty Diagnoses / Procedures Referred By Contac t Referred To Contact Diagnoses Conductive hearing loss of right ear, unspecified hearing status on contralateral side Procedures CT Mastoid w/o contrast Benjamin Rivera MD [address] [place] [address] GEORG[place] HUERTA Referral ID Status Reason Start Date Expiration Date V isits Requested Visits Authorized [id number] Pending Review 06/01/2024 06/02/2025 1 1 Reason for Visit * Reason Comments Ear Fullness Encounter Details Date Type Department Care Team (Latest Contact Info) Description 06/01/2024 8:15 AM EST Office Visit [facility] [address] [place] [address] Benjamin Rivera MD [address] [place] [phone] Conductive hearing loss of right ear, unspecified [...] the original note were not included. 15 [facility] [address] Loc: [phone] Encounter Date: 06/01/2024 Chief Complaint Patient presents [...] further bleeding occurs - Perform imaging at [facility] to assess for residual fluid behind [...] TESTING REVIEWED Gayla will undergo imaging at [facility] to assess for residual fluid behind [...] documented in this encounter Plan of Treatment Upcoming Encounters Date Type Department Care Team (Late st Contact Info) Description 07/12/2024 8:45 AM EDT Clinical Support [facility] [place] [address] [facility] [phone] Willy Scott MD [address] [facility] [place] [phone] documented as of this encounter Procedures Procedure Name Priority Date/Time Associated Diagnosis Comments CT MASTOID W/O CONTRAST Routine 06/10/2024 4:17 PM EST Conductive hearing loss of right ear, unspecified hearing status on contralateral side documented in this encounter Results * CT Mastoid w/o contrast (06/10/2024 [...] ??Gil Jackson MD ??06/13/2024 06:35 PM EST RP Thank you for referring your patient to us, Gil Jackson MD [phone] (Electronically Signed - 06/13/2024 18:35) Copy: ROYAL DRAPER MD [facility]- PUL[facility] [address] [place] [address] [place] [address] Narrative 06/13/2024 6:[address] TEMPORAL BONES WITHOUT CONTRAST DATE: ??06/13/2024 5:27 PM LEAD COOK INDICATION: 63-year-old female, ??Conductive hearing loss, unilateral, [...] BONES WITHOUT CONTRAST DATE: 06/13/2024 5:27 PM LEAD COOK INDICATION: 63-year-old female, Conductive hearing loss, unilateral,right [...] Jackson MD 06/13/2024 06:35 PM EST RPWorkstation: [id number] Thank you for referring your patient to us, Gil Jackson MD [phone] (Electronically Signed - 06/13/2024 18:35) Copy: ROYAL DRAPER MD [facility]- [address] [place] [address] Benjamin Rivera MD IMG CT ORDERABLES documented in this encounter Visit Diagnoses Diagnosis Conductive hearing loss of right ear, unspecified hearing status on contralateral side- Primary Mixed conductive and sensorineural hearing loss of right ear with restricted hearing of left ear Chronic serous otitis media, right ear Postnasal drip documented in this encounter Care Teams Tax Lawyer Relationship Specialty Start Date End Date Mj Rodriguez MD [address] [place] [address] PCP - General Internal Medicine 05/12/24 documented as of this encounter
--- OUTSIDE RECORDS SUMMARY | 2024-06-24 14:13 | XMS_ITS | Data Portability ---
Author Organization [facility] Address [address] [place] [address] Assessment No assessment recorded. Plan of Treatment Reminders Order Date Submit Date Provider Last Modified By Organization Details Last Modified Time Details Appointments None recorded. Lab SARS CoV 2 (COVID-19) Ag, QL, IA, upper respiratory specimen 2022 023 [facility], [address] [place] [address], [phone], 19:18:22 rapid flu (A+B) 2022 023 [facility], [address] [place] [address], [phone], 19:18:21 Referral None recorded. Procedures None recorded. Surgeries None recorded. Imaging None recorded. Medication Orders Allergy Relief (fluticason e) 50 mcg/actuati on nasal spray,suspe nsion 2022 023 [facility]/Pharmacy #[id number], [id number] [place], [address], 19:21:05 Patient TargetsNo targets recorded. Patient Instructions Encounter Date Encounter Id Patient Instructions Last Modified By Organization Details Last Modified Time 12/15/2022 [id number] cough: care instructions [email or web address] Not available 12/15/2022 19:18:19 Sinusitis is an [...] care for yourself at home? Take an vzxp-ake-rzieabr pain medicine. Avoid Ibuprofen, Aleve and Aspirin if . If the doctor prescribed antibiotics, take them as directed. Do not stop taking them just because you feel better. You need to take the full course of antibiotics. Be careful when taking lchv-afv-wfnrben cold or influenza (flu) medicines and Tylenol [...] wear a mask. For travel guidance, see [facility]? s Travel webpage. Do not travel. Stay [...] masking (see below). For travel guidance, see [facility]? s Travel webpage. Not available 12/15/2022 19:17:15 Reason for Referral None Reported. Results Created Date Observation Date Name Description Value Unit Range Abnormal Flag Note LastModifiedBy Organization Detail LastModifiedTime 12/16/1912/15/2022 SARS CoV 2 (COVI D-19) Ag, QL, IA, upper respi rator y speci men Unknown Analyte negati ve Not Available [facility] [address] [place], [address], 12/15/2022 18:54:00 12/16/1912/15/2022 SARS CoV 2 (COVI D-19) Ag, QL, IA, upper respi rator y speci men Unknown Analyte negati ve Not Available [facility] [address] [place], [address], 12/15/2022 18:54:00 12/16/1912/15/2022 rapid flu (A+B) Unknown Analyte negati ve Not Available [facility] [address] [place], [address], 12/15/2022 18:53:47 12/16/1912/15/2022 rapid flu (A+B) Unknown Analyte negati ve Not Available [facility] [address] [place], [address], 12/15/2022 18:53:47 Result Notes None recorded. Medical [...] Updated DateTime 3 154.94 cm 22.7 kg/m2 47736.0 8 g 98 % 98 % 68 [...] SNOMED-CT Code Diagnosis ICD10 Code Diagnosis Note [id number] [facility] [address] [address] 02/18/2016 19:50:28 02/18/2016 20:08:22 [id number] [facility] [address] [address] 10/30/2018 18:11:34 10/30/2018 18:45:46 [id number] [facility] [address] [address] 09/27/2021 15:28:56 09/27/2021 16:51:09 [id number] [facility] [address] [address] 06/18/2015 17:17:46 06/18/2015 17:58:27 [id number] [facility] [address] 02/28/2017 14:32:46 02/28/2017 15:11:49 [id number] David Yoon NP [facility] [address] [address] 12/15/2022 18:15:15 12/15/2022 19:21:52 Acute sinusitis 44123760 J01.90 Exposure t o SARS-CoV-2 223480284 Z20.822 Health Concerns Section Related Observation LastModified by Organization Detai ls LastModified Time None Recorded Concern Status LastModified by Organization Details LastModified Time None Recorded Advance Directives Directive None Recorded Payers Encounter Date Sequence Insurance Name Policy Number Policy Gutierrez Covered Member ID Gutierrez Member ID Guarantor Name 09/27/2021 1 [facility] [id number] Gayla Ciocca Peloquin [id number] Gayla Ciocca Peloquin 12/15/[address] [place] [address] [id number] Gayla Ciocca Peloquin [id number] Gayla Ciocca Peloquin Notes Date Note Type [...] Yoon NP [address] [place], [address], [place] - [employer] 12/15/2022 19:21:14 OBGyn Episode No OBEpisode recorded.
--- OUTSIDE RECORDS SUMMARY | 2024-06-24 14:13 | XMS_ITS | Patient Health Record ---
Author Organization [facility] Address [address] [place] [address] Care Team Providers Care Financial Legal Assistant Name Role Phone Magui Baez MD Primary Care Provider Santos Flores Unavailable [phone] Reason For Referral No Information Encounters Encounter Location Date Provider Diagnosis [facility] [address] [place] [address] 08/07/2023 Santos Polanco Plan Of Treatment No Information Insurance Providers Payer Name Payer Address Payer Phone Subscriber Number Group Number Insured Name Patient Relationship to Insured Coverage Start Date Coverage End Date [facility] [address] [place] [address] [id number] Gayla Moody Self - patient is the insured
--- OUTSIDE RECORDS SUMMARY | 2024-06-24 14:14 | XMS_ITS | Encounter Summary ---
Author Organization [facility] Address [address] [place] [address] Care Team Providers Care Snake Charmer Name Role Phone Mj Rodriguez MD Primary Care Provider Encounter Details Date Type Department Care Team ([facility] st Contact Info) Description 06/16/2024 Telephone [facility] [address] [place] [address] Benjamin Rivera MD [address] [place] [address] Social History Tobacco Use Types Packs/Day Years [...] Telephone Encounter - Edith Malhotra MA - 06/23/2024 1:44 PM EDT Called to patient, appt made for 07/12. Aware of address and location of the [place] office. * Telephone Encounter - Edith Malhotra MA - 06/22/2024 2:27 PM EDT Patient calls in again, stating she keeps missing your call. CB# [phone] * Telephone Encounter - Edith Malhotra MA - 06/17/2024 10:15 AM EST Patient calls in and LM stating that she is returning your call. CB# [phone] * Telephone Encounter - Edith Malhotra MA - 06/16/2024 9:00 AM EST [facility] called in to make sure we received Gayla's results from the CT temp bones. documented in this encounter Plan of Treatment Upcoming Encounters Date Type Department Care Team (Late st Contact Info) Description 07/12/2024 8:45 AM EDT Clinical Support [facility] [address] [place] [address] Willy Scott MD [address] [place] [address] documented as of this encounter Visit Diagnoses Not on filedocumented in this encounter Care Teams Snake Charmer Relationship Specialty Start Date End Date Mj Rodriguez MD [address] [place] [address] PCP - General Internal Medicine 05/12/24 documented as of this encounter
--- OUTSIDE RECORDS SUMMARY | 2024-06-24 14:14 | XMS_ITS ---
Author Organization [facility] Address [address] [place] [address] Care Team Providers Care Test Lead Name Role Phone Sasha CALVILLO, Magui Primary Care Provider Santos Flores Unavailable [phone] Encounters Encounter Location Date Provider Diagnosis [facility] [address] [place] [address] 08/28/2023 Santos Polanco Plan Of Treatment No Information Progress Notes * ANILEVIANTONIETTARehan YOSTMinaB: (63 yo F)Acc No.[id number]:08/28/2023 Progress Notes Patient:?Marc JOHN Provider:?Santos Polanco DPM :1960???Age:62 Y???Sex:Female D ate:08/28/2023 Address:[address] [place], [place] [address] Pcp:Magui Baez MD Subjective: * Chief Complaints: [...] Polanco DPM Date:?2023 Generated for Taylor figueroa/Taye/eTransmitting on:?06/24/2024 02:13 PM EDT
--- OUTSIDE RECORDS SUMMARY | 2024-06-24 14:14 | XMS_ITS ---
Author Organization [facility] Address [address] [place] [address] Care Team Providers Care Telegraphic Service Dispatcher Name Role Phone Sasha CALVILLO, Magui Primary Care Provider Santos Flores Unavailable [phone] Hoffmann Encounters Encounter Location Date Provider Diagnosis [facility] [address] [place] [address] 07/10/2023 Santos Polanco Plan Of Treatment No Information Progress Notes * KARENJOSERehan YOSTaDOB: (63 yo F)Acc No.[id number]:07/10/2023 Progress Notes Patient:?Marc JOHN Provider:?Santos Polanco DPM :1960???Age:62 Y???Sex:Female D ate:07/10/2023 Address:[address] [place], [place] [address] Pcp:Magui Baez MD Subjective: * Chief Complaints: [...] Provider:?Santos Polanco DPM Date:?2023 Generated for Brittneyi henry/Faortizg/eTransmitting on:?06/24/2024 02:13 PM EDT
== END 2024-06-24 13:53 | disposition home or self-care (01) ==
LOC: HO.RHE 12:41
PROVIDERS: PCP Internal Medicine; Visit Provider Student in an Organized Health Care Education/Training Program
DX: R76.8 Other specified abnormal immunological findings in serum (principal)
CPT/HCPCS: 99205

== ENCOUNTER 2024-07-15 09:00 | Outpatient (AMB) | payer OTHER, SELFPAY ==
--- NOTE | 2024-07-15 09:06 | A.OFFVIS_ITS ---
Vital Signs 07/15/24 09:11 Height 5 ft 1 in Weight 115 lb 8.356 oz BMI 21.8 BP 112/62 Blood Pressure Location Rt brachial Position Sitting Pulse 63 Pulse Source Pulse Oximeter Pulse Oximetry (%) 100 Oxygen Delivery Method Room Air Intake Visit Reasons: abnormal lab res Intake Note: Patient presents today for abnormal lab results. Allergies No Known Allergies Allergy (Verified 07/15/24 09:10) HPI Comments Details: Patient is a 63-year-old female history of asthma and biopsy-proven acute fibrinous organizing pneumonia in the setting of a positive KRISTOPHER and anti CCP presents today for follow up Interval History: Patient last seen 06/24/2024 with me. At that time she was establishing care for the evaluation of idiopathic interstitial pneumonia in the setting of a positive KRISTOPHER and positive CCP. At that time her history and exam was not consistent with a systemic autoimmune disease with narrowing history of prolonged morning stiffness, rashes, Raynaud's, recurrent losses, alopecia, oral/nasal ulcers, sicca symptoms or any other concerning symptoms. She did complain of right arm muscle twitching Further workup was done to evaluate for any occult underlying connective tissue disease Rheumatologic History: Initial history by me: Patient feels that everything started back in 2008 She went to the ER with excruciating chest pain, diagnosed as a muscle issue Overall was okay since then Then in 2012, fell ill in November. Had flu symptoms, was given antibiotics x 2 rounds and was finally sent to the ER. Was given different courses of antibiotics for after 2-3 ER visits. But even then she did not improve. Was having worsening SOB, fatigue and hypoxia. She was finally admitted and started on IV antibiotics, and had a bronchoscopy but that was non diagnositic. Subsequently had to get a biopsy and diagnsoed with acute fibrinous organizing pneumonia. She was initially on prednisolone and also CellCept for period of time but was subsequently able to wean off of these medications since 2019. In March 2023 she followed up with pulmonology and was noticing worsening hoarseness and chest congestion. That was initially attributed to flu and this improved as the chest x-ray showed no acute disease and her PFTs showed low to normal total lung capacity with a mild diffusion impairment. In January of 2024 she continued her follow up with palm reporting flu-like symptoms for about 2 weeks associated with a productive cough. She was given a course of doxycycline and prednisone without improvement. She was then started on Augmentin. Despite antibiotics she had worsening respiratory symptoms with worsening shortness of breath and hypoxia. CT a done at that time showed pneumonitis without any evidence of pneumonia she also noted ear pressure and sinus discomfort. She received a 3rd course of another antibiotic: Azithromycin which she reported had improvement in her symptoms. She also followed up with ENT and had drainage of her ear. Her CT scan improved and she was able to taper off the prednisone Current symptoms: Right arm feels uncomfortable Movements and muscle pressure. 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 Denies muscle weakness, difficulty combing her hair or reaching for objects above her head Denies difficulty getting up from a seated position or walking up stairs Of note her father has a history of pulmonary fibrosis. Nephew with recurrent spontaneous PTx Current Rheumatology Medication(s): [facility] Medical History (Updated 07/15/24 @ 13:15 by Julee Magaña MD) New abnormality on chest x-ray Otitis media Bronchopneumonia Pneumonitis Viral syndrome H/O interstitial lung disease Hypersensitivity pneumonitis Organizing pneumonia Asthma Social History Patient Tobacco Use Status: Never used Tobacco Review of Systems Const Details: Review of Systems Constitutional: Denies fever, chills, weight loss ENT: Denies vision changes, eye pain or eye redness, dental caries, dry mouth GI: Denies nausea, vomiting, diarrhea, abdominal pain, change in BM Pulm: Denies SOB, FELDMAN, hemoptysis, wheezing Cards: Denies chest pain, palpitations Skin: Denies Raynaud's, rash, nail changes, photosensitivity, BARREL DRILLER: Denies headaches, weakness, paresthesias, recurrent falls MSK: as per HPI All other systems reviewed and are unremarkable except noted above Physical Exam Vital Signs: Last Vital Signs Pulse 63 07/15/24 09:11 BP 112/62 07/15/24 09:11 Pulse Ox 100 07/15/24 09:11 Oxygen Delivery Method Room Air 07/15/24 09:11 BMI result Body Mass Index 21.8 Vital signs reviewed Physical Examination CONSTITUITIONAL Patient alert and cooperative. Well appearing and in no apparent painful distres s HEENT Conjunctiva and sclera clear. ?Pupils equal round and reactive to light. ?No lymphadenopathy. ? CHEST/RESPIRATORY SYSTEM Normal respiratory effort and able to speak in complete sentences. ?Clear to auscultation bilaterally. ?No crackles, rales, rhonchi, wheezes heard. CARDIAC SYSTEM Regular rate and rhythm. ?S1 and S2 heard no murmurs. ?Radial pulses intact bilaterally MSK Hands: ?Good city secretary strength bilaterally. No deformities noted. ?No synovitis noted to the MCPs, PIPs or DIPs. ?No tenderness to palpation of these joints. Wrists: ?Full range of motion at the wrists without pain. ?No tenderness to palpation or synovitis noted to the wrists. Elbows: Full range of motion without pain. No tenderness, weakness, swelling, increased warmth or erythema. Shoulders: Full range of motion without pain. No tenderness, weakness, swelling, increased warmth or erythema. Hips: Full range of motion without pain. Hip bursa: No tenderness to palpation Knees: ?Full range of motion. ?No tenderness, swelling, increased warmth or erythema.?No effusion or crepitations Ankles: Full range of motion. ?No tenderness, swelling, increased warmth or erythema.? Feet: ?Negative squeeze test. ?No tenderness to palpation or swelling of the MTPs. Tender points:?No tenderness to palpation of the bilateral trapezius, supraspinatus, greater trochanters, anterior costochondral junctions, bilateral gluteal areas, bilateral suboccipital muscle insertions Right Left Neck flexion 5 Shoulder abduction 5 5 Shoulder adduction 5 5 Elbow flexion 5 5 Elbow extension 5 5 Mattress Specialist strength 5 5 Hip flexion 5 5 Knee flexion 5 5 Knee extension 5 5 Ankle dorsiflexion 5 5 Ankle plantarflexion 5 5 SKIN Skin intact without rashes. Normal nail fold capillary dermoscopy Results Reviewed Results Reviewed: Laboratory Tests 06/24/24 14:44 WBC 4.7 L RBC 4.30 Hgb 12.8 Hct 36.7 L Plt Count 121 L D ESR 6 Sodium 140 Potassium 3.8 Chloride 107 Carbon Dioxide 26 BUN 19 H Creatinine 0.63 Calcium 9.3 Total Bilirubin 0.6 AST 28 ALT 18 Alkaline Phosphatase 52 Total Creatine Kinase 69 C-Reactive Protein < 0.10 Immunology Labs 02/12/24 06/24/24 11:10 14:44 IgG Total 945 IgG Subclass 1 474 IgG Subclass 2 349 IgG Subclass 3 44 IgG Subclass 4 34.8 IgA Total 187 IgM 153 IgE 6 Rheumatoid Factor 14.4 Cycl Citrul Peptide IgG 33 H KRISTOPHER Screen POSITIVE A KRISTOPHER Titer 1:320 H ANCA Immunofluorescen NEGATIVE Proteinase 3 (PR3) Ab <1.0 Myeloperoxidase Ab <1.0 KRISTY-1 Antibody <11 EJ Antibody <11 OJ Antibody <11 Mi-2-Alpha Ab <11 Mi-2-Beta Ab <11 NXP-2 Ab <11 PL-7 Antibody <11 PL-12 Antibody <11 SRP Ab <11 MDA5 Ab <11 Myos P155/140 TIF1-g Ab <11 SS-A/Ro Antibody <1.0 NEG SS-B/La Antibody <1.0 NEG Sm (Cuadra) Antibody <1.0 NEG SM/MILK PICKUP TRUCK DRIVER IgG Antibody <1.0 NEG Scl-70 Scleroderma Ab <1.0 NEG Centromere B Antibody <1.0 NEG Beta-2-GPI IgG Ab <2.0 Beta-2-GPI IgA Ab <2.0 Beta-2-GPI IgM Ab 3.8 Anti-Cardiolipin IgG Ab <2.0 Anti-Cardiolipin IgM Ab <2.0 Complement C3 98 Complement C4 23 Assessment & Plan Assessment & Plan (1) ILD (interstitial lung disease): Code(s): J84.9 - Interstitial pulmonary disease, unspecified Plan: #Interstitial lung disease with autoimmune features Patient is a 63-year-old female with biopsy-proven interstitial lung disease here today for follow up of her evaluation for systemic connective tissue disease. Based on the 2019 classification criteria for interstitial pneumonia with autoimmune features patient meets 1. Presence of an interstitial pneumonia by high-resolution CT 2. Alternative etiologies exclude is such as infectious and malignancy 3. Has an KRISTOPHER and a positive and CCP 4. CT showing organizing pneumonia Since this patient currently does not have any evidence of systemic autoimmune disease and her pulmonary disease is under control I think it is reasonable to observe patient without drug therapy. She should continue to follow with pulmonology at least once a year with repeat CT scans and PFTs. If there is evidence of progression or worsening of her lung disease then we can consider immunosuppression at that time Plan - No immunosuppression at this time - Continue monitoring with pulm - RTC prn Mir BHAKTA, Theodora House. Interstitial Pneumonia with Autoimmune Features. Dag[employer] Am [employer]. 2019 August;16(5):525-533. doi: 10.1513/AnnalsATS.[id number]. PMID: 01278997; PMCID: [id number]. Plan I spent 36 minutes reviewing the record and labs, taking a history, examining the patient, discussing the treatment plan, ordering diagnostic work up and documenting in the medical record Coding Level of Care Code Est Pt Level 4 (66506) Complex EM visit Add On G2211 Diagnoses ILD (interstitial lung disease) J84.9
[2024-07-15 09:11] VITALS: BP 112/62; PULSE 63; O2SAT 100; BMI 21.8
--- OUTSIDE RECORDS SUMMARY | 2024-07-15 09:38 | XMS_ITS | Data Portability ---
Author Organization [facility] Address [address] [place] [phone] Assessment No assessment recorded. Plan of Treatment Reminders Order Date Submit Date Provider Last Modified By Organization Details Last Modified Time Details Appointments None recorded. Lab SARS CoV 2 (COVID-19) Ag, QL, IA, upper respiratory specimen 2022 023 [email or web address], [address] [place] [address], [phone], 19:18:22 rapid flu (A+B) 2022 023 [email or web address], [address] [place] [address], [phone], 19:18:21 Referral None recorded. Procedures None recorded. Surgeries None recorded. Imaging None recorded. Medication Orders Allergy Relief (fluticason e) 50 mcg/actuati on nasal spray,suspe nsion 2022 023 [facility]acy #[id number], [phone] [place], [address], 19:21:05 Patient TargetsNo targets recorded. Patient Instructions Encounter Date Encounter Id Patient Instructions Last Modified By Organization Details Last Modified Time 12/15/2022 [id number] cough: care instructions [email or web address] Not available 12/15/2022 [...] care for yourself at home? Take an wdfp-yzr-lwipxxd pain medicine. Avoid Ibuprofen, Aleve and Aspirin if . If the doctor prescribed antibiotics, take them as directed. Do not stop taking them just because you feel better. You need to take the full course of antibiotics. Be careful when taking hrpx-tom-yjiaizm cold or influenza (flu) medicines and Tylenol [...] wear a mask. For travel guidance, see [facility]? s Travel webpage. Do not travel. Stay [...] masking (see below). For travel guidance, see [facility]? s Travel webpage. Not available 12/15/2022 19:17:15 Reason for Referral None Reported. Results Created Date Observation Date Name Description Value Unit Range Abnormal Flag Note LastModifiedBy Organization Detail LastModifiedTime 12/16/1912/15/2022 SARS CoV 2 (COVI D-19) Ag, QL, IA, upper respi rator y speci men Unknown Analyte negati ve Not Available [facility] [address] [place], [address], 12/15/2022 18:54:00 12/16/1912/15/2022 SARS CoV 2 (COVI D-19) Ag, QL, IA, upper respi rator y speci men Unknown Analyte negati ve Not Available [facility] [address] [place], [address], 12/15/2022 18:54:00 12/16/1912/15/2022 rapid flu (A+B) Unknown Analyte negati ve Not Available [facility] [address] [place], [address], 12/15/2022 18:53:47 12/16/1912/15/2022 rapid flu (A+B) Unknown Analyte negati ve Not Available [facility] [address] [place], [address], 12/15/2022 18:53:47 Result Notes None recorded. Medical [...] Updated DateTime 3 154.94 cm 22.7 kg/m2 72180.0 8 g 98 % 98 % 68 [...] SNOMED-CT Code Diagnosis ICD10 Code Diagnosis Note [id number] 21004_That{img} [address] [address] 02/18/2016 19:50:28 02/18/2016 20:08:22 [id number] 21004_That{img} [address] [address] 10/30/2018 18:11:34 10/30/2018 18:45:46 [id number] 21004_That{img} [facility] [address] [address] 09/27/2021 15:28:56 09/27/2021 16:51:09 [id number] [facility] [address] [address] 06/18/2015 17:17:46 06/18/2015 17:58:27 [id number] [facility] [address] 02/28/2017 14:32:46 02/28/2017 15:11:49 [id number] David Yoon NP 21004_[facility] [address] [address] 12/15/2022 18:15:15 12/15/2022 19:21:52 Acute sinusitis 71653797 J01.90 Exposure t o SARS-CoV-2 [id number] Z20.822 Health Concerns Section Related Observation LastModified by Organization Detai ls LastModified Time None Recorded Concern Status LastModified by Organization Details LastModified Time None Recorded Advance Directives Directive None Recorded Payers Encounter Date Sequence Insurance Name Policy Number Policy Gutierrez Covered Member ID Gutierrez Member ID Guarantor Name 09/27/2021 1 [facility] [id number] Gayla Ciocca Peloquin [id number] Gayla Ciocca Peloquin 12/15/[address] [place] [address] [id number] Gayla Ciocca Peloquin [id number] Gayla Ciocca Peloquin Notes Date Note Type [...] Yoon NP [address] [place], [address], [place] - [facility] 12/15/2022 19:21:14 OBGyn Episode No OBEpisode recorded.
--- OUTSIDE RECORDS SUMMARY | 2024-07-15 09:38 | XMS_ITS ---
Author Organization [facility] Address [address] [place] [address] Care Team Providers Care Directory Compiler Name Role Phone Sasha CALVILLO, Magui Primary Care Provider Santos Flores Unavailable [phone] Encounters Encounter Location Date Provider Diagnosis [facility] [address] [place] [address] 08/28/2023 Santos Polanco Plan Of Treatment No Information Progress Notes * ANILEVIANTONIETTARehan YOSTMinaB: (63 yo F)Acc No.[id number]:08/28/2023 Progress Notes Patient:?Marc JOHN Provider:?Santos Polanco DPM :1960???Age:62 Y???Sex:Female D ate:08/28/2023 Address:[address] [place], [place] [address] Pcp:Magui Baez MD Subjective: * Chief Complaints: * ??? * Medical History:? Objective: * Vitals:? Assessment: Plan: * Treatment: * Images: * The named appointment provid er may or may not be the originator of this progress note, and it is not deemed complete until electronically signed by the appointment provider. Sign off status: Pending * Provider:Juaquin Polanco DPM Date:?2023 Generated for Brittneyi henry/Taye/eTransmitting on:?07/15/2024 09:38 AM EDT
--- OUTSIDE RECORDS SUMMARY | 2024-07-15 09:38 | XMS_ITS | Patient Health Record ---
Author Organization [facility] Address [address] [place] [address] Care Team Providers Care Slab Depiler Operator Name Role Phone Magui Baez MD Primary Care Provider Santos Flores Unavailable [phone] Reason For Referral No Information Encounters Encounter Location Date Provider Diagnosis [facility] [address] [place] [address] 08/07/2023 Santos Polanco Plan Of Treatment No Information Insurance Providers Payer Name Payer Address Payer Phone Subscriber Number Group Number Insured Name Patient Relationship to Insured Coverage Start Date Coverage End Date [facility] [address] [place] [address] [id number] Gayla Moody Self - patient is the insured
--- OUTSIDE RECORDS SUMMARY | 2024-07-15 09:38 | XMS_ITS | Encounter Summary ---
Author Organization [facility] Address [address] [place] [address] Care Team Providers Care Cream Hauler Name Role Phone Mj Rodriguez MD Primary Care Provider Encounter Details Date Type Department Care Team (Late st Contact Info) Description 05/23/2024 Scanned Document [facility] PULMONARY SVC IP [address] [place] [phone] Boaz Nicole MD [address] [place] [phone] Social History Tobacco Use Types Packs/Day Years [...] Care Team (Late st Contact Info) Description 09/13/2024 8:30 AM EDT Clinical Support [facility] [place] [address] [place] [address] Willy Scott MD [address] [place] [address] Maile Madison Au.D [address] [place] [phone] documented as of this encounter Visit Diagnoses Not on filedocumented in this encounter Care Teams Cream Hauler Relationship Specialty Start Date End Date Mj Rodriguez MD [address] [place] [id number] PCP - General Internal Medicine 05/12/24 documented as of this encounter
--- OUTSIDE RECORDS SUMMARY | 2024-07-15 09:38 | XMS_ITS | Clinical Summary ---
Author Organization [facility] Address [address] [place] [address] Care Team Providers Care Transport Coordinator Name Role Phone Mj Rodriguez MD Primary Care Provider Allergies No known active allergies Medications Medication Sig Dispensed Refills Start Date End Date Status Breyosephtri Aerosphere 160-9-4.8 MCG/ACT Aerosol Inhale 2 puffs [...] Encounters Date Type Department Care Team Description 07/12/2024 8:45 AM EDT Clinical Support [facility] [address] [place] [address] Willy Scott MD Right otitis media with effusion (Primary Dx); Mixed conductive and sensorineural hearing loss of right ear, unspecified hearing status on contralateral side 06/16/2024 Telephone [facility] [address] [address] Benjamin Rivera MD 06/01/2024 8:15 AM EST Office Visit [facility] [address] [place] [phone] Benjamin Rivera MD Conductive hearing loss of right ear, unspecified hearing status on contralateral side (Primary Dx); Mixed conductive and sensorineural hearing loss of right ear with restricted hearing of left ear; Chronic serous otitis media, right ear; Postnasal drip 05/23/2024 Scanned Document [facility] PULMONARY SVC IP [address] [place] [phone] Boaz Nicole MD 05/19/2024 Telephone [facility] [address] [phone] Benjamin Rivera MD 05/12/2024 10:00 AM EST Clinical Support [facility] [address] [phone] Benjamin Rivera MD Czaplicki, Allison, Au.D Mixed conductive and sensorineural hearing loss of right ear with restricted hearing of left ear (Primary Dx); Sensorineural hearing loss (SNHL) of left ear with restricted hearing of right ear; Postnasal drip; Chronic serous otitis media, right ear; Dysphonia from Last 3 Months Immunizations Name Administration [...] - Inhaled Oxygen Concentration - - Weight 52.6 kg (116 lb) 07/12/2024 9:07 AM EDT Height 154.9 cm (5' 1 ) 07/12/2024 9:07 AM EDT Body Mass Index 21.92 07/12/2024 9:07 AM EDT Plan of Treatment Upcoming Encounters Date Type Department Care Team (Late st Contact Info) Description 09/13/2024 8:30 AM EDT Clinical Support [facility] [place] [address] [place] [address] Willy Scott MD [address] [place] [address] Maile Madison Au.D [address] [place] [phone] Health Maintenance Due Date Last Done Comments [...] ear with restricted hearing of left ear from Last 3 Months Results * CT [...] your patient to us, Gil Jackson MD [phone] (Electronically Signed - 06/13/2024 18:35) Copy: BOAZ NICOLE MD [facility]- PULMONARY [address] [facility] [place] [address] Narrative 06/13/2024 6:[address] TEMPORAL BONES WITHOUT CONTRAST DATE: ??06/13/2024 5:27 PM SENIOR TELECOMMUNICATIONS ENGINEER INDICATION: 63-year-old female, ??Conductive hearing loss, unilateral, [...] BONES WITHOUT CONTRAST DATE: 06/13/2024 5:27 PM SENIOR TELECOMMUNICATIONS ENGINEER INDICATION: 63-year-old female, Conductive hearing loss, unilateral,right [...] Jackson MD 06/13/2024 06:35 PM EST RPWorkstation: [id number] Thank you for referring your patient to us, Gil Jackson MD [phone] (Electronically Signed - 06/13/2024 18:35) Copy: BOAZ NICOLE MD [facility]- [address] [place] [id number] Benjamin Rivera MD IMG CT ORDERABLES * Audiometry (05/12/2024 10:00 AM EST) Narrative Maile Madison Au.D - 05/12/2024 10:00 AM EST Rhiannon Barbosa ? 05/12/2024 10:30 AM Procedure Note Rhiannon Barbosa - 05/12/2024 10:00 AM EST Images from the original note were not included. Benjamin Rivera MD AUDIOLOGY SERVICES O RDERABLES from Last 3 Months Care Teams Transport Coordinator Relationship Specialty Start Date End Date Mj Rodriguez MD [address] [place] [address] PCP - General Internal Medicine 05/12/24
--- OUTSIDE RECORDS SUMMARY | 2024-07-15 09:38 | XMS_ITS | Encounter Summary ---
Author Organization [facility] Address [address] [place] [address] Care Team Providers Care Pre Billing Specialist Name Role Phone Mj Rodriguez MD Primary Care Provider Reason for Visit * Reason Comments Follow-up Hearing Loss Ref Dr Matthew villa ng loss Encounter Details Date Type Department Care Team (Latest Contact Info) Description 07/12/2024 8:45 AM EDT Clinical Support [facility] [address] [place] [address] Willy Scott MD [address] [place] [address] Right otitis media with effusion (Primary Dx); Mixed conductive and sensorineural hearing loss of right ear, unspecified hearing status on contralateral side Social History Tobacco Use Types Packs/Day Years [...] Mass Index 21.92 07/12/2024 9:07 AM EDT documented in this encounter Progress Notes * Willy Scott MD - 07/12/2024 8:45 AM EDT Patient ID: Gayla Cornejo is a 63 y.o. female Reason for visit: Follow-up and Hearing Loss (Ref Dr Matthew hearing loss) HPI 63 y.o. female with a history of mixed hearing loss right side, with a CAT scan evidence concerningfor fluid versus cholesteatoma. She describes significant upper respiratory tract infection leadingto decreased hearing and fluid, she underwent a myringotomy which helped somewhat however her hearing loss persisted. She has benefited from triamcinolone nasal spray. She has no further drainage outof her ear after she feels a fullness in her right ear. Review of Systems Constitutional: Negative for appetite change, chills, diaphoresis, fatigue and fever. HENT: Positive for ear fullness, hearing loss. Eyes: Negative for redness, itching and visual disturbance. Respiratory: Negative for apnea, snoring, cough, choking, chest tightness, shortness of breath and stridor. Cardiovascular: Negative for chest pain and palpitations. Gastrointestinal: Negative for abdominal pain, diarrhea, nausea and vomiting. Endocrine: Negative for cold intolerance and heat intolerance. Genitourinary: Negative for difficulty urinating and frequency. Musculoskeletal: Negative for neck stiffness. Skin: Negative for rash and wound. Allergic/Immunologic: Negative for environmental allergies and food allergies. Neurological: Negative for dizziness, tremors, seizures, syncope, facial asymmetry, speech difficulty, weakness, light-headedness, numbness and headaches. Hematological: Does not bruise/bleed easily. Psychiatric/Behavioral: Negative for depression. The patient is not nervous/anxious. Current Outpatient Medications Medication Sig Dispense Refill Breztri Aerosphere 160-9-4.8 MCG/ACT Aerosol Inhale 2 puffs 2 times a day. triamcinolone (NASACORT AQ) 55 MCG/ACT Aerosol nasal spray 2 sprays into each nostril daily. 1 each3 No current facility-administered medications for this visit. Allergies: Gayla Cornejo has No Known Allergies. Past Surgical History: Procedure Laterality Date EYE SURGERY LUNG BIOPSY Family History Problem Relation Age of Onset Heart disease Mother Stroke Mother Autoimmune disease Mother Autoimmune disease Father Social History Tobacco Use Smoking status: Never Passive exposure: Never Smokeless tobacco: Never Substance Use Topics Alcohol use: Yes Drug use: Never Physical Exam General: Well-nourished, well-developed. NAD. Head: Normocephalic, atraumatic. Eyes: EOMI, PERRLA, no proptosis, normal sclera, conjunctiva. No nystagmus. Face: Symmetric, no lesions. Normal TMJ to palpation. Salivary glands normal to palpation. Paranasal sinuses nontender to palpation. Ears: Several pieces of debris within her ear canal which were subjectively removed over the tympanic membrane, and intact tympanic membrane, possibly slightly retracted without fluid. On the left, there is normal tympanic membrane. Nose: Nasal septum irritated consistent with nasal steroid use Procedures Assessment/Plan 1. Right otitis media with effusion 2. Mixed conductive and sensorineural hearing loss of right ear, unspecified hearing status on contralateral side Primary Diagnosis: Right otitis media with effusion [H65.91] 63 y.o. female with mixed hearing loss right side, history of significant ear infection, with opacification of the mastoid, she is undergoing a rheumatological workup for question of lupus, versus other autoimmune etiologies, unclear if this is a contributory factor. I do not believe she is a cholesteatoma at this point based on review her CAT scan, the scutum is intact, there is no clear bony erosion, I suspect she had otitis media with effusion which is partially resolved at this point. I plan to see her back in the next couple of months, possibly 2 to 3 months. She has been using nasal steroid sprays causing some irritation to her nasal septum. Recommend saline gel. I have offered to place a ventilation tube in the future if that is her wish if she still has persistent symptomatology in 2 to 3 months. documented in this encounter Plan of Treatment Upcoming Encounters Date Type Department Care Team (Late st Contact Info) Description 09/13/2024 8:30 AM EDT Clinical Support [facility] [address] [place] [phone] Willy Scott MD [address] [place], [place] [id number] [phone] Maile Madison Au.D [address] [place] [phone] documented as of this encounter Visit Diagnoses Diagnosis Right otitis media with effusion- Primary Nonsuppurative otitis media, not specified as acute or chronic Mixed conductive and sensorineural hearing loss of right ear, unspecified hearing status on contralateral side documented in this encounter Care Teams Pre Billing Specialist Relationship Specialty Start Date End Date Mj Rodriguez MD [address] [place] [id number] PCP - General Internal Medicine 05/12/24 documented as of this encounter
--- OUTSIDE RECORDS SUMMARY | 2024-07-15 09:38 | XMS_ITS ---
Author Organization [facility] Address [address] [place] [phone] Care Team Providers Care Production Sorter Name Role Phone Sasha CALVILLO, Magui Primary Care Provider Santos Flores Unavailable [phone] Hoffmann Encounters Encounter Location Date Provider Diagnosis [facility] [address] [place] [address] 07/10/2023 Santos Polanco Plan Of Treatment No Information Progress Notes * KARENJOSERehan YOSTaDOB: (63 yo F)Acc No.[id number]:07/10/2023 Progress Notes Patient:?Marc JOHN Provider:?Santos Polanco DPM :1960???Age:62 Y???Sex:Female D ate:07/10/2023 Address:[address] [place], [place] [phone] Pcp:Magui Baez MD Subjective: * Chief Complaints: [...] Provider:?Santos Polanco DPM Date:?2023 Generated for Brittneyi henry/Fareba/eTransmitting on:?07/15/2024 09:38 AM EDT
--- OUTSIDE RECORDS SUMMARY | 2024-07-15 09:38 | XMS_ITS ---
Author Organization [facility] Address [address] [place] [phone] Care Team Providers Care Carton Inspector Name Role Phone Sasha CALVILLO, Magui Primary Care Provider Santos Flores Unavailable [phone] carlton apt Encounters Encounter Location Date Provider Diagnosis [address] [address] 08/07/2023 Santos Polanco Plan Of Treatment No Information Progress Notes * Daily JOHNB: (62 yo F)Acc No.[id number]:08/07/2023 Patient:?Marc John :1960???Age:62 Y???Sex:Female Address:[address] [place] [address], [phone] * true * Date:? Generated for Taylor figueroa/Taye/eTransmitting on:?07/15/2024 09:37 AM EDT
== END 2024-07-15 10:08 | disposition home or self-care (01) ==
PROVIDERS: PCP Internal Medicine; Visit Provider Student in an Organized Health Care Education/Training Program
DX: J84.9 Interstitial pulmonary disease, unspecified (principal)
CPT/HCPCS: 99214

== ENCOUNTER → 2024-07-15 09:00 | Outpatient (BNVA) | payer OTHER, SELFPAY | PROVIDERS: PCP Internal Medicine; Visit Provider Student in an Organized Health Care Education/Training Program | DX: J84.9 Interstitial pulmonary disease, unspecified (principal) ==

== ENCOUNTER 2024-09-23 08:59 | Outpatient (AMB) | payer OTHER, SELFPAY ==
[2024-09-23 09:04] VITALS: BP 102/70; PULSE 53; O2SAT 100; BMI 21.9
--- NOTE | 2024-09-23 09:04 | MHC.OFFVIS ---
Vital Signs 09/23/24 09:04 Height 5 ft 1 in Weight 116 lb BMI 21.9 BP 102/70 Blood Pressure Location Lt brachial Position Sitting Pulse 53 Pulse Source Pulse Oximeter Pulse Oximetry (%) 100 Oxygen Delivery Method Room Air Intake Visit Reasons: Cough [employer] Service Officer Required: No Allergies No Known Allergies Allergy (Verified 09/23/24 09:06) HPI Comments Details: The patient is a 63-year-old woman with a known history of asthma in addition to acute fibrinous organizing pneumonia (AFOP) biopsy-proven. She did require prednisone and also CellCept for a duration of time. Subsequently was able to wean off. She has been doing well and have not seen her in the last couple years. She still complains of dyspnea on exertion. Moderate severity. Does have some wheezing at times. She does have a rescue inhaler that she uses. She used to have Symbicort HFA has not been using it regularly. She has not had any imaging studies of breathing studies in some time. Also to note her hypersensitivity panel had been positive in the past. She did have mold issues in the bathroom which was felt to be potentially contributing to her underlying interstitial process. She has normal lung mechanics which is reassuring. The patient was supposed to have an x-ray. crackles which is likely all related to her surgery. No significant wheezing. We did talk about decreasing the amount of Symbicort to 1 dilation and also she can use the Singulair seasonally. 01/22/2024 the patient is here for sick visit. She has been sick now for about 2 weeks. She started developing a cough. Positive sick contacts at home. Started developing sore throat and also some tenderness over the cervical lymph nodes. Subsequently after that she started developing a cough. She went to an urgent care. The patient was given a course of doxycycline and a short course of prednisone. She did not feel better. The patient went to her primary care doctor's office. She was evaluated there. She was kept on the doxy and her prednisone was increased to 60 mg. She has been weaning down. She has not seen significant improvement. She feels that she has a significant productive cough. Moderate severity. She can not sleep with it. She has tried ksyi-pdh-civdeou allergy medications without any relief. In the office she has significant rhonchi and wheezing. She is getting nebulizer treatment now. She does have evidence of sinusitis and also bronchitis. The patient did have a chest x-ray which I personally reviewed demonstrating no acute disease. We are awaiting final read. 02/12/2024 the patient is here for a follow-up visit. She developed worsening respiratory symptoms since we last spoke. apparently she was feeling better and she had a fall and she had a significant hematoma on the right thigh. She went to initially [facility] with a documented a large hematoma. Ultimately she started developing worsening shortness of breath and hypoxia. She was referred to [facility] ER. There she did undergo blood work including a hemoglobin dropping in of 3 g. in addition to that she had a CTA which I personally reviewed demonstrating some haziness suggesting some degree of pneumonitis which was diffuse throughout. No evidence of any pneumonia. She completed the 2nd course of antibiotics. In addition to that now she is having some ear pressure and sinus discomfort. She is down to 10 mg of prednisone. She is using the nebulizer. But she is concerned that she is not significantly better. She does have a pulse ox and sometimes her pulse ox is in the 80s. On exam she still has significant wheezing on exam. She is going to need to stay on the prednisone. Also some evidence of fluid in the middle ear. Will request additional blood work to assess her pneumonitis. Could be postviral although she does have a history of a fall likely hypersensitivity pneumonitis. We did try to collect a sputum sample in the office but we were not able to. Will go ahead and request blood work. If the patient is not able to provide a sputum sample and if it is still not clear if his symptoms have not improved with this 3rd course of medications then will talk about a bronchoscopy. 02/19/2024 the patient is here for a pulmonary follow-up visit. She started to feel better,a lthough she still has significant pressure in her right ear and also still having chest congestion. She did complete a course of azithromycin. Prior to that she had Augmentin and also doxycycline. Although, she still moderately congested. Still clearing phlegm. We did try to get a sputum culture but patient was not able to do so. She will bring 1 whenever possible. She has the specimen cup. She still has significant wheezing on exam. Will keep her on 10 mg of prednisone. In the meantime the blood work demonstrated an elevated KRISTOPHER and also a positive CCP. She started history of interstitial lung disease before and now her last CT scan also evidence of pneumonitis. Therefore, it is not unreasonable to consider potential connective tissue disease interstitial lung disease. Although the only thing that does not quite go along with that she is still very congested. Therefore I feel compelled to give her another course of antibiotics with Levaquin to make sure we treat every organism possible that could be contributing to her symptoms. Will try to get a sputum culture. If the patient is no better on the small dose of prednisone and also the levofloxacin then a bronchoscopy will be warranted. In the meantime will make a referral to the stamp press operator. The patient continues to use a nebulizer in continues to use the Breztri inhaler. She continues on Sudafed which is helping with her sinuses. At this time she will try 5 days of Afrin to see if this provides further relief of the pressure of her middle ear. We all these medications is affecting her sleep. She can use him Ambien as needed for sleep. Will follow-up in couple weeks. 04/03/2024 the patient is here for pulmonary follow-up visit. She is feeling better. She is down to 10 mg of prednisone. She is using the Breztri inhaler once a day. She is also using the nebulizer once a day. She is still having some chest congestion but much less. Difficult to expectorate at this time. Her ears still bothering her. She completed a course of Levaquin actually today. Therefore, will keep her off antibiotics. Unfortunately she was not able to provide a sputum culture. Will plan to taper down the prednisone further. The patient will increase her Breztri 2 twice a day. Her ear still bothering her specially the right 1. Feels full and is still dull in appearance. Therefore, she is going to start nasal rinsing continue the Sudafed and will be referred to ENT. Denies any significant rashes and she does have some joint pains but not the typical small joints. She does have a referral to Rheumatology pending. Will readdress that depending how her x-ray looks like during her next visit. 03/25/2024 the patient is here for a pulmonary follow-up visit. Overall she is doing a little better. She is down to 5 mg every other day of prednisone. She continues on the Breztri twice a day. In addition to that she had been using the nebulizer once a day but she stopped because is too cumbersome for her sometimes. She is currently dealing with her mom in hospice and has been difficult. The patient still having issues with her right ear she can not hear well from that ear in appears to have some fluid behind it and also some slight erythema. She has been on multiple courses of antibiotics already. Will try some ear drops uses see if this can provide some relief. She is waiting for an ENT evaluation. I wonder if she can have a laryngoscopy done to see if there is any blockage of the Eustachian tube. Also she is having some hoarseness in that would help just to see what is going on with the vocal cords. She still coughing up some mucus although less. She has completed multiple courses of antibiotics. My suspicion is that she has not smoldering organism resulting in the ongoing mucus production. This could include stenotrophomonas or Pseudomonas. Will go ahead and request a chest x-ray at this time. If she continues with the chest congestion by the time she returns in several weeks will plan for bronchoscopy. For now though she is going to try to wean off the prednisone and will continue on the inhaler although I will switch her over to Alvesco and Bevespi with the hope that the Alvesco does not irritate so much vocal cords to Bravo hoarseness. Still no evidence of any active pneumonitis or airspace disease on the x-rays. Her CT scan that she had a [employer] was also reassuring although did have some slight areas of inflammation. We did review her blood work no significant allergies with a normal IgE level and a normal eosinophil level so therefore she is not a candidate for most biologics although she is still a candidate for test prior if she continues have the wheezing. She is also a candidate for Daliresp. Which would be a reasonable option to treat her for chronic bronchitis. This will also help especially if she is worsens after stopping the prednisone. 05/06/2024 the patient is here for a pulmonary follow-up visit. Overall she had been doing well. She was able to wean off the prednisone. But she has been noticing increasing chest congestion and wheezing. She has been using the Breztri although once a day. She is going to go back to twice a day. She continues to complain about her right ear which she is not getting great response to therapy. She has been Sudafed, multiple antibiotics, ear drops, nasal steroids without any significant improvement. She does have some fluid in the right ear. Also has significant nasal congestion. We did talk about starting the Neti bottle with budesonide which she can do that once a night. In the meantime she does have an appointment with ENT coming up. In regards of her chest she does have some wheezing and also some minimal rhonchi scattered. She did have a repeat CT scan of the chest specially because it was a question nodule on her x-ray and also to follow-up the pneumonitis that was on her CT scan back on January. Seems like the pneumonitis has resolved completely which is reassuring. She does have some persistent scarring in the right hemithorax after her surgeries and postoperative changes. But otherwise no significant findings. She does have some calcified pulmonary nodules that are not of any concern. Still though with her airway disease in her persistent symptoms now for about a 3 months will get a sputum culture and if not helpful will go ahead and perform bronchoscopy. 06/10/2024 the patient is here for pulmonary follow-up visit. Overall she is doing a little better. She did go to ENT. She had to get her tympanic membrane peers and drain because of significant fluid buildup in the responded to medical therapy. She was having some issues with bleeding after that but now is healing. She is going to have an CT scan of the here today. She will continue to follow-up with ENT. She also has an appointment with Rheumatology. She does describe some elbow discomfort although not sure if she has any constitutional symptoms that go along rheumatoid arthritis or any other connective tissue disease. She will follow-up with Rheumatology to look into that further. In the meantime she her respiratory inhalers are working well. She does having significant wheezing on exam. She is getting better. We did review her CT scan she did have a liver cyst and she was concerned about that. I did reassure her that is likely benign and a some point when she returns in 4 months we can talk about further testing for that but right now I will just focus on the ENT issues in the rheumatologic or issues. She will continue with respiratory therapy she has not worsening symptoms she will call. 09/23/2024 the patient is here for pulmonary follow-up visit. Overall she is doing well. She did follow-up with Rheumatology and did not need any further interventions. Her blood work was reassuring. Respiratory morton the patient is doing well she continues on the Breztri. She will try to wean off a little bit and see if she can be off it. When the fall start she can restarted as a preemptive during the fall season in case of increased allergy and asthma symptoms. She can also start Singulair at that time. The patient also had a CT scan back in April which were reviewed. She has a little bit of scarring residual from her surgeries and residual from the organizing pneumonia she had back many years ago. But no evidence of any active interstitial lung disease. She also has some apical scarring which is typical and not related. She also did follow-up with ENT and seems like the ear has significantly gotten better no further interventions warranted. She has a yearly follow-up with them. The patient follow-up sometime in the January where she can get the flu shot. I also advised her to get the RSV vaccine and also she should make sure that she has her pneumonia vaccine up-to-date in her Tdap. [facility] Medical History (Updated 09/25/24 @ 20:24 by Boaz Nicole MD) New abnormality on chest x-ray Otitis media Bronchopneumonia Pneumonitis Viral syndrome H/O interstitial lung disease Hypersensitivity pneumonitis Organizing pneumonia Asthma Social History Patient Tobacco Use Status: Never used Tobacco Review of Systems Const Denies chills, Denies fatigue, Denies malaise and Denies night sweats ENT Reports as per HPI, Denies otalgia, Denies hoarseness, Denies lip swelling, Denies mouth pain and Denies tongue swelling Card Denies chest pain and Denies dyspnea on exertion Resp Denies chest congestion, Reports cough, Denies hemoptysis, Denies dyspnea on exertion and Denies wheezing GI Denies abdominal pain Musc Denies no additional complaints Neuro Denies Neuro-related abnormal movements Psych Denies no additional complaints Endo Denies fatigue Hermes/Lymph Denies easy bleeding and Denies lymphadenopathy Aller/Immun Denies lip swelling, Denies tongue swelling and Denies wheezing Physical Exam Vital Signs: Last Vital Signs Pulse 53 09/23/24 09:04 BP 102/70 09/23/24 09:04 Pulse Ox 100 09/23/24 09:04 Oxygen Delivery Method Room Air 09/23/24 09:04 BMI result Body Mass Index 21.9 Const General: comfortable and alert HEENT Head: Yes normocephalic General nose exam: Normal external nose present Eyes Pupils: Equal, round and reactive pupils present Neck Neck: Yes normal visual inspection, Yes full ROM and Yes no lymphadenopathy Chest Chest palpation & inspection: normal inspection of the chest Resp Effort & Inspection: normal respiratory effort Auscultation: no wheezes and diminished lung sounds Cardio Rate: regular rate Rhythm: regular rhythm Heart sounds: S1 normal heart sound present and S2 normal heart sound present GI Palpation (GI): Soft to palpation and nontender Auscultation: normal bowel sounds General: Yes no CVA tenderness Back/Spine/Pelvis Back: no CVA tenderness Skin General skin exam: rashes and/or lesions noted Neuro Cranial nerves: Yes Equal, round and reactive pupils present Assessment & Plan Assessment & Plan (1) Asthma: Code(s): J45.909 - Unspecified asthma, uncomplicated Category: Medical Qualifiers: Asthma complication type: uncomplicated Asthma persistence: persistent Asthma severity: moderate Qualified Code(s): J45.40 - Moderate persistent asthma, uncomplicated Plan: Short-acting beta agonist as needed (2) Pneumonitis: Comment: better, resolved Code(s): J98.4 - Other disorders of lung Category: Medical (3) Hypersensitivity pneumonitis: Code(s): J67.9 - Hypersensitivity pneumonitis due to unspecified organic dust Category: Medical Plan: Avoiding mold (4) H/O interstitial lung disease: Comment: AFOB Code(s): Z87.09 - Personal history of other diseases of the respiratory system Category: Medical (5) KRISTOPHER positive: Code(s): R76.8 - Other specified abnormal immunological findings in serum Category: Medical (6) Positive anti-CCP test: Code(s): R76.8 - Other specified abnormal immunological findings in serum Category: Medical Plan acapella valve for CPT Breztri with spacer BID MARY as needed singulair seasonally pseudophed as needed ambien for sleep ENT treatment has been effective F/U 4-6 months Coding Level of Care Code Est Pt Level 4 (35723) Complex EM visit Add On G2211 Diagnoses Moderate persistent asthma without complication J45.40 Asthma complication type: uncomplicated Asthma persistence: persistent Asthma severity: moderate Pneumonitis J98.4 Hypersensitivity pneumonitis J67.9 H/O interstitial lung disease Z87.09 KRISTOPHER positive R76.8 Positive anti-CCP test R76.8 Time Spent (min) 17
--- OUTSIDE RECORDS SUMMARY | 2024-09-23 09:23 | XMS_ITS | Patient Health Record ---
[facility] Address [address] [place] [id number] Care Team Providers Care Manager Sourcing Name Role Phone Magui Baez MD Primary Care Provider Santos Flores Unavailable [phone] Reason For Referral No Information Plan Of Treatment No Information Insurance Providers Payer Name Payer Address Payer Phone Subscriber Number Group Number Insured Name Patient Relationship to Insured Coverage Start Date Coverage End Date [facility] [address] [place] [address] [id number] Gayla Moody Self - patient is the insured
== END 2024-09-23 09:26 | disposition home or self-care (01) ==
LOC: HO.HPS 08:59
PROVIDERS: PCP Internal Medicine; Visit Provider Hospitalist
DX: J45.40 Moderate persistent asthma, uncomplicated (principal); J98.4 Other disorders of lung; J67.9 Hypersensitivity pneumonitis due to unspecified organic dust; Z87.09 Personal history of other diseases of the respiratory system; R76.8 Other specified abnormal immunological findings in serum
CPT/HCPCS: 99214; G2211

== ENCOUNTER 2025-02-03 10:18 | Outpatient (AMB) | payer OTHER, SELFPAY ==
--- OUTSIDE RECORDS SUMMARY | 2023-08-28 05:30 | XMS_ITS ---
Author Organization [facility] Address [address] [place] [id number] Care Team Providers Care Hook Up Driver Name Role Phone Sasha CALVILLO, Magui Primary Care Provider Santos Flores Unavailable [phone] Encounters Encounter Location Date Provider Diagnosis [facility] [address] [place] [address] 08/28/2023 Santos Polanco Plan Of Treatment No Information Progress Notes * Rehan JOHNMinaB: (64 yo F)Acc No.[id number]:08/28/2023 Progress Notes Patient: Gayla GR Provider: Vidhi Polanco DPM :1960 A ge:62 Y S ex:Female Date:08/28/2023 Address:[address] [place], [place] [id number] Pcp:Magui Baez MD Subjective: * Chief Complaints: * * Medical History: Objective: * Vitals: Assessment: Plan: * Treatment: * Images: * The named appointment provid er may or may not be the originator of this progress note, and it is not deemed complete until electronically signed by the appointment provider. Sign off status: Pending * Provider: Vidhi Polanco DPM Date: 08/28/2023 Generated for Taylor figueroa/Taye/eTransmitting on: 11:46 AM EDT
--- OUTSIDE RECORDS SUMMARY | 2025-02-03 09:15 | XMS_ITS | Encounter Summary ---
Author Organization [facility] Address [address] [place] [address] Care Team Providers Care Steam Fitter Helper Name Role Phone Nasra Rodriguez MD Primary Care Provide r Reason for Referral * Imaging (Routine) - Authorized Specialty Diagnoses / Procedures Referred By Kim quiñones Referred To Contact Radiology Diagnoses Encounter for screening mammogram for breast cancer Procedures MG Mammo Digital Screening w Joni bilat Spp, Self Referral [facility] Referral ID Status Reason Start Date Expiration Date V isits Requested Visits Authorized [id number] Authorized 02/05/2024 02/04/2025 1 1 Reason for Visit * Imaging (Routine) - Authorized Specialty Diagnoses / Procedures Referred By Kim quiñones Referred To Contact Radiology Diagnoses Encounter for screening mammogram for breast cancer Procedures MG Mammo Digital Screening w Joni bilat Spp, Self Referral [facility] Referral ID Status Reason Start Date Expiration Date V isits Requested Visits Authorized [id number] Authorized 02/05/2024 02/04/2025 1 1 Encounter Details Date Type Department Care Team (Latest Contact Info) Description 02/03/2025 9:15 AM EDT Hospital En[facility] [address] [phone] Encounter for screening mammogram for breast cancer Social History Tobacco Use Types Packs/Day Years Used Date Smoking Tobacco: Never Assessed Comments No Sex and Gender Information Value Date Recorded Sex Assigned at Not on file Legal Sex Female 1:35 PM EST Gender Identity Not on file Sexual Orientation Not on file documented as of this encounter Last Filed Vital Signs Vital Sign Reading Time Taken Comments Blood Pressure - - Pulse - - Temperature - - Respiratory Rate - - Oxygen Saturation - - Inhaled Oxygen Concentration - - Weight 52.2 kg (115 lb) 02/03/2025 9:26 AM EDT Height 154.9 cm (5' 1 ) 02/03/2025 9:26 AM EDT Body Mass Index 21.73 02/03/2025 9:26 AM EDT documented in this encounter Plan of Treatment Upcoming Encounters Date Type Department Care Team (Late st Contact Info) Description 02/09/2026 2:15 PM EDT [facility]ointment [facility] [address] [phone] documented as of this encounter Procedures Procedure Name Priority Date/Time Associated Diagnosis Comments MG MAMMO DIGITAL SCREENING W JONI BILAT Routine 02/03/2025 9:41 AM EDT Encounter for screening mammogram for breast cancer documented in this encounter Results * MG Mammo Digital Screening w Joni bilat (02/03/2025 9:41 AM EDT) Anatomical Region Laterality Modality Breast Bilateral Mammography 02/03/2025 9:54 AM EDT Impressions 02/03/2025 10:01 AM EDT No mammographic evidence of malignancy. A negative mammogram in the presence of a clinically suspicious palpable abnormality does not preclude the possibility of malignancy or alter the indications for biopsy. PQRI CPT II 3341F Code 11426, 42702 PQRI 225 CPT II 7025F TISSUE DENSITY: There are scattered areas of fibroglandular density. (BI-RADS category B) IMPRESSION: Benign. BI-RADS CATEGORY: 1 - NEGATIVE RECOMMENDATION: Screening bilateral mammogram is recommended in 1 year. Mammo Location: [facility], [address] [place] [id number] -------- FINAL REPORT -------- Dictated By: Steven Ortez Dictated Date: 02/03/2025 09:54 ET Assigned Physician: Steven Ortez Reviewed and Electronically Signed By: Steven Ortez Signed Date: 02/03/2025 10:01 ET Workstation ID: [id number] Transcribed By: Self Edit Transcribed Date: 02/03/2025 09:54 ET Narrative 02/03/2025 10:01 AM EDT CLINICAL: The patient is a 64 years Female presenting for routine screening mammography. COMPARISON: Most recently 03/20/2023 and most remotely 04/24/2016. TECHNIQUE: Full-field digital mammography of the breasts bilaterally consisting of tomosynthesis in MLO and CC projection is performed in the [employer] 2000-D unit. Computer aided detection utilizing the iCAD system was utilized. FINDINGS: The breasts are again seen to be composed of a combination of fatty and fibroglandular elements. There is no cluster of microcalcifications, mass, or area of architectural distortion. There is no skin thickening or nipple retraction. Procedure Note Steven Ortez MD - 02/03/2025 CLINICAL: The patient is a 64 years Female presenting for routinescreening mammography. COMPARISON: Most recently 03/20/2023 and most remotely 04/24/2016. TECHNIQUE: Full-field digital mammography of the breasts bilaterallyconsisting of tomosynthesis in MLO and CC projection is performed in the[employer]aimos [employer]ographe 2000-D unit. Computer aided detection utilizing the iCADsystem was utilized. FINDINGS: The breasts are again seen to be composed of a combination offatty and fibroglandular elements. There is no cluster ofmicrocalcifications, mass, or area of architectural distortion. There isno skin thickening or nipple retraction. IMPRESSION: No mammographic evidence of malignancy. A negative mammogram in the presence of a clinically suspicious palpableabnormality does not preclude the possibility of malignancy or alter theindications for biopsy. PQRI CPT II 3341F Code 27367, 30604 PQRI 225 CPT II 7025F TISSUE DENSITY: There are scattered areas of fibroglandular density.(BI-RADS category B) IMPRESSION: Benign. BI-RADS CATEGORY: 1 - NEGATIVE RECOMMENDATION: Screening bilateral mammogram is recommended in 1 year. Mammo Location: [facility], [address] [place] [id number] -------- FINAL REPORT -------- Dictated By: Steven Ortez Dictated Date: 02/03/2025 09:54 ET Assigned Physician: Steven Ortez Reviewed and Electronically Signed By: Steven Ortez Signed Date: 02/03/2025 10:01 ET Workstation ID: [id number] Transcribed By: Self Edit Transcribed Date: 02/03/2025 09:54 ET us Self Referral Sppl IMG BI PROCEDURES Final Resul t documented in this encounter Visit Diagnoses Diagnosis Encounter for screening mammogram for breast cancer Encounter for screening mammogram for breast cancer documented in this encounter Care Teams Steam Fitter Helper Relationship Specialty Start Date End Date Nasra Rodriguez MD [address] [place] [address] [place] PCP - General Internal Medicine 10/21/24 documented as of this encounter
[2025-02-03 10:25] VITALS: BP 126/74; PULSE 73; O2SAT 99; BMI 21.9
--- NOTE | 2025-02-03 10:25 | MHC.OFFVIS ---
Vital Signs 02/03/25 10:25 Height 5 ft 1 in Weight 115 lb 11.883 oz BMI 21.9 BP 126/74 Blood Pressure Location Lt brachial Position Sitting Pulse 73 Pulse Source Pulse Oximeter Pulse Oximetry (%) 99 Oxygen Delivery Method Room Air Intake Visit Reasons: Cough Automotive Specialty Technician Required: No Accompanied by: Self / Same As Patient Allergies No Known Allergies Allergy (Verified 02/03/25 10:28) HPI Comments Details: The patient is a 64-year-old woman with a known history of asthma in addition to acute fibrinous organizing pneumonia (AFOP) biopsy-proven. She did require prednisone and also CellCept for a duration of time. Subsequently was able to wean off. She has been doing well and have not seen her in the last couple years. She still complains of dyspnea on exertion. Moderate severity. Does have some wheezing at times. She does have a rescue inhaler that she uses. She used to have Symbicort HFA has not been using it regularly. She has not had any imaging studies of breathing studies in some time. Also to note her hypersensitivity panel had been positive in the past. She did have mold issues in the bathroom which was felt to be potentially contributing to her underlying interstitial process. She has normal lung mechanics which is reassuring. The patient was supposed to have an x-ray. crackles which is likely all related to her surgery. No significant wheezing. We did talk about decreasing the amount of Symbicort to 1 dilation and also she can use the Singulair seasonally. 01/22/2024 the patient is here for sick visit. She has been sick now for about 2 weeks. She started developing a cough. Positive sick contacts at home. Started developing sore throat and also some tenderness over the cervical lymph nodes. Subsequently after that she started developing a cough. She went to an urgent care. The patient was given a course of doxycycline and a short course of prednisone. She did not feel better. The patient went to her primary care doctor's office. She was evaluated there. She was kept on the doxy and her prednisone was increased to 60 mg. She has been weaning down. She has not seen significant improvement. She feels that she has a significant productive cough. Moderate severity. She can not sleep with it. She has tried ilco-gzn-cgdxhcm allergy medications without any relief. In the office she has significant rhonchi and wheezing. She is getting nebulizer treatment now. She does have evidence of sinusitis and also bronchitis. The patient did have a chest x-ray which I personally reviewed demonstrating no acute disease. We are awaiting final read. 02/12/2024 the patient is here for a follow-up visit. She developed worsening respiratory symptoms since we last spoke. apparently she was feeling better and she had a fall and she had a significant hematoma on the right thigh. She went to initially [facility] with a documented a large hematoma. Ultimately she started developing worsening shortness of breath and hypoxia. She was referred to [facility]. There she did undergo blood work including a hemoglobin dropping in of 3 g. in addition to that she had a CTA which I personally reviewed demonstrating some haziness suggesting some degree of pneumonitis which was diffuse throughout. No evidence of any pneumonia. She completed the 2nd course of antibiotics. In addition to that now she is having some ear pressure and sinus discomfort. She is down to 10 mg of prednisone. She is using the nebulizer. But she is concerned that she is not significantly better. She does have a pulse ox and sometimes her pulse ox is in the 80s. On exam she still has significant wheezing on exam. She is going to need to stay on the prednisone. Also some evidence of fluid in the middle ear. Will request additional blood work to assess her pneumonitis. Could be postviral although she does have a history of a fall likely hypersensitivity pneumonitis. We did try to collect a sputum sample in the office but we were not able to. Will go ahead and request blood work. If the patient is not able to provide a sputum sample and if it is still not clear if his symptoms have not improved with this 3rd course of medications then will talk about a bronchoscopy. 02/19/2024 the patient is here for a pulmonary follow-up visit. She started to feel better,a lthough she still has significant pressure in her right ear and also still having chest congestion. She did complete a course of azithromycin. Prior to that she had Augmentin and also doxycycline. Although, she still moderately congested. Still clearing phlegm. We did try to get a sputum culture but patient was not able to do so. She will bring 1 whenever possible. She has the specimen cup. She still has significant wheezing on exam. Will keep her on 10 mg of prednisone. In the meantime the blood work demonstrated an elevated KRISTOPHER and also a positive CCP. She started history of interstitial lung disease before and now her last CT scan also evidence of pneumonitis. Therefore, it is not unreasonable to consider potential connective tissue disease interstitial lung disease. Although the only thing that does not quite go along with that she is still very congested. Therefore I feel compelled to give her another course of antibiotics with Levaquin to make sure we treat every organism possible that could be contributing to her symptoms. Will try to get a sputum culture. If the patient is no better on the small dose of prednisone and also the levofloxacin then a bronchoscopy will be warranted. In the meantime will make a referral to the imaging technician. The patient continues to use a nebulizer in continues to use the Breztri inhaler. She continues on Sudafed which is helping with her sinuses. At this time she will try 5 days of Afrin to see if this provides further relief of the pressure of her middle ear. We all these medications is affecting her sleep. She can use him Ambien as needed for sleep. Will follow-up in couple weeks. 04/03/2024 the patient is here for pulmonary follow-up visit. She is feeling better. She is down to 10 mg of prednisone. She is using the Breztri inhaler once a day. She is also using the nebulizer once a day. She is still having some chest congestion but much less. Difficult to expectorate at this time. Her ears still bothering her. She completed a course of Levaquin actually today. Therefore, will keep her off antibiotics. Unfortunately she was not able to provide a sputum culture. Will plan to taper down the prednisone further. The patient will increase her Breztri 2 twice a day. Her ear still bothering her specially the right 1. Feels full and is still dull in appearance. Therefore, she is going to start nasal rinsing continue the Sudafed and will be referred to ENT. Denies any significant rashes and she does have some joint pains but not the typical small joints. She does have a referral to Rheumatology pending. Will readdress that depending how her x-ray looks like during her next visit. 03/25/2024 the patient is here for a pulmonary follow-up visit. Overall she is doing a little better. She is down to 5 mg every other day of prednisone. She continues on the Breztri twice a day. In addition to that she had been using the nebulizer once a day but she stopped because is too cumbersome for her sometimes. She is currently dealing with her mom in hospice and has been difficult. The patient still having issues with her right ear she can not hear well from that ear in appears to have some fluid behind it and also some slight erythema. She has been on multiple courses of antibiotics already. Will try some ear drops uses see if this can provide some relief. She is waiting for an ENT evaluation. I wonder if she can have a laryngoscopy done to see if there is any blockage of the Eustachian tube. Also she is having some hoarseness in that would help just to see what is going on with the vocal cords. She still coughing up some mucus although less. She has completed multiple courses of antibiotics. My suspicion is that she has not smoldering organism resulting in the ongoing mucus production. This could include stenotrophomonas or Pseudomonas. Will go ahead and request a chest x-ray at this time. If she continues with the chest congestion by the time she returns in several weeks will plan for bronchoscopy. For now though she is going to try to wean off the prednisone and will continue on the inhaler although I will switch her over to Alvesco and Bevespi with the hope that the Alvesco does not irritate so much vocal cords to Bravo hoarseness. Still no evidence of any active pneumonitis or airspace disease on the x-rays. Her CT scan that she had a [employer] was also reassuring although did have some slight areas of inflammation. We did review her blood work no significant allergies with a normal IgE level and a normal eosinophil level so therefore she is not a candidate for most biologics although she is still a candidate for test prior if she continues have the wheezing. She is also a candidate for Daliresp. Which would be a reasonable option to treat her for chronic bronchitis. This will also help especially if she is worsens after stopping the prednisone. 05/06/2024 the patient is here for a pulmonary follow-up visit. Overall she had been doing well. She was able to wean off the prednisone. But she has been noticing increasing chest congestion and wheezing. She has been using the Breztri although once a day. She is going to go back to twice a day. She continues to complain about her right ear which she is not getting great response to therapy. She has been Sudafed, multiple antibiotics, ear drops, nasal steroids without any significant improvement. She does have some fluid in the right ear. Also has significant nasal congestion. We did talk about starting the Neti bottle with budesonide which she can do that once a night. In the meantime she does have an appointment with ENT coming up. In regards of her chest she does have some wheezing and also some minimal rhonchi scattered. She did have a repeat CT scan of the chest specially because it was a question nodule on her x-ray and also to follow-up the pneumonitis that was on her CT scan back on January. Seems like the pneumonitis has resolved completely which is reassuring. She does have some persistent scarring in the right hemithorax after her surgeries and postoperative changes. But otherwise no significant findings. She does have some calcified pulmonary nodules that are not of any concern. Still though with her airway disease in her persistent symptoms now for about a 3 months will get a sputum culture and if not helpful will go ahead and perform bronchoscopy. 06/10/2024 the patient is here for pulmonary follow-up visit. Overall she is doing a little better. She did go to ENT. She had to get her tympanic membrane peers and drain because of significant fluid buildup in the responded to medical therapy. She was having some issues with bleeding after that but now is healing. She is going to have an CT scan of the here today. She will continue to follow-up with ENT. She also has an appointment with Rheumatology. She does describe some elbow discomfort although not sure if she has any constitutional symptoms that go along rheumatoid arthritis or any other connective tissue disease. She will follow-up with Rheumatology to look into that further. In the meantime she her respiratory inhalers are working well. She does having significant wheezing on exam. She is getting better. We did review her CT scan she did have a liver cyst and she was concerned about that. I did reassure her that is likely benign and a some point when she returns in 4 months we can talk about further testing for that but right now I will just focus on the ENT issues in the rheumatologic or issues. She will continue with respiratory therapy she has not worsening symptoms she will call. 09/23/2024 the patient is here for pulmonary follow-up visit. Overall she is doing well. She did follow-up with Rheumatology and did not need any further interventions. Her blood work was reassuring. Respiratory morton the patient is doing well she continues on the Breztri. She will try to wean off a little bit and see if she can be off it. When the fall start she can restarted as a preemptive during the fall season in case of increased allergy and asthma symptoms. She can also start Singulair at that time. The patient also had a CT scan back in April which were reviewed. She has a little bit of scarring residual from her surgeries and residual from the organizing pneumonia she had back many years ago. But no evidence of any active interstitial lung disease. She also has some apical scarring which is typical and not related. She also did follow-up with ENT and seems like the ear has significantly gotten better no further interventions warranted. She has a yearly follow-up with them. The patient follow-up sometime in the January where she can get the flu shot. I also advised her to get the RSV vaccine and also she should make sure that she has her pneumonia vaccine up-to-date in her Tdap. 02/03/2025 the patient is here for pulmonary follow-up visit. Overall she is feeling better. She is not using her respiratory inhalers nor her allergy medicine. Although she is starting to get some clearing of the throat. Fivs-fc-[id number] severity and also itching so the years. She does have decreased hearing in the right ear after having the significant chronic infection of the otitis media. In the meantime the patient also has been doing a little bit more activity with dancing. She has been noticing increasing shortness of breath with activity. She does have some slight wheezing on exam. She will go ahead and start her inhalers as needed. She can also start small dose of Singulair and also use Claritin as needed. She is going to get a flu shot today. No need for imaging studies at this time. Will follow-up in the spring she has not issues prior to this she will call for an earlier assessment. [facility] Medical History (Updated 09/25/24 @ 20:24 by Boaz Nicole MD) New abnormality on chest x-ray Otitis media Bronchopneumonia Pneumonitis Viral syndrome H/O interstitial lung disease Hypersensitivity pneumonitis Organizing pneumonia Asthma Social History Patient Tobacco Use Status: Never used Tobacco Review of Systems Const Denies chills, Denies fatigue, Denies malaise and Denies night sweats ENT Reports as per HPI, Denies otalgia, Reports hearing loss, Denies hoarseness, Denies lip swelling, Denies mouth pain and Denies tongue swelling Card Denies chest pain and Reports dyspnea on exertion Resp Denies chest congestion, Reports cough, Denies hemoptysis, Reports dyspnea on exertion and Denies wheezing GI Denies abdominal pain Musc Denies no additional complaints Neuro Denies Neuro-related abnormal movements Psych Denies no additional complaints Endo Denies fatigue Hermes/Lymph Denies easy bleeding and Denies lymphadenopathy Aller/Immun Denies lip swelling, Denies tongue swelling and Denies wheezing Physical Exam Vital Signs: Last Vital Signs Pulse 73 02/03/25 10:25 BP 126/74 02/03/25 10:25 Pulse Ox 99 02/03/25 10:25 Oxygen Delivery Method Room Air 02/03/25 10:25 BMI result Body Mass Index 21.9 Const General: comfortable and alert HEENT Head: Yes normocephalic General nose exam: Normal external nose present Eyes Pupils: Equal, round and reactive pupils present Neck Neck: Yes normal visual inspection, Yes full ROM and Yes no lymphadenopathy Chest Chest palpation & inspection: normal inspection of the chest Resp Effort & Inspection: normal respiratory effort Auscultation: no wheezes and diminished lung sounds Cardio Rate: regular rate Rhythm: regular rhythm Heart sounds: S1 normal heart sound present and S2 normal heart sound present GI Palpation (GI): Soft to palpation and nontender Auscultation: normal bowel sounds General: Yes no CVA tenderness Back/Spine/Pelvis Back: no CVA tenderness Skin General skin exam: rashes and/or lesions noted Neuro Cranial nerves: Yes Equal, round and reactive pupils present Office Procedures Flu Questionnaire Does the patient have a severe egg allergy?: No Does the patient have severe life threatening allergies?: No Does the patient have a fever or illness today?: No Has the patient ever had Guillain-Mabie Syndrome?: No Has the patient ever had any past reaction to a flu shot?: No Immunizations Fluarix [id number] (PF) 45 mcg (15 mcg x 3)/0.5 mL IM syringe Performing Provider: Boaz Nicole MD Performing Location: [facility] Administered by: Magui Ren LPN on 02/03/25 14:13 Dose Route Admin Location Dispensed Lot Number Expiration Date N[employer] Tools Programmer 0.5 mL IM Left Deltoid 0.5 mL [id number] 10/10/25 10109-038-48 [employer] VIS Given Date VIS Provided VIS Publication Date 02/03/25 Single Vaccine 24 Eligibility Eligibility Date Funding Source Not [facility] Eligible 02/03/25 Private Administration Comments: Given by MD Boaz Nicole Assessment & Plan Assessment & Plan (1) Asthma: Code(s): J45.909 - Unspecified asthma, uncomplicated Category: Medical Qualifiers: Asthma complication type: uncomplicated Asthma persistence: persistent Asthma severity: moderate Qualified Code(s): J45.40 - Moderate persistent asthma, uncomplicated Plan: Short-acting beta agonist as needed (2) Pneumonitis: Comment: better, resolved Code(s): J98.4 - Other disorders of lung Category: Medical (3) Hypersensitivity pneumonitis: Code(s): J67.9 - Hypersensitivity pneumonitis due to unspecified organic dust Category: Medical Plan: Avoiding mold (4) H/O interstitial lung disease: Comment: AFOB Code(s): Z87.09 - Personal history of other diseases of the respiratory system Category: Medical (5) KRISTOPHER positive: Code(s): R76.8 - Other specified abnormal immunological findings in serum Category: Medical (6) Positive anti-CCP test: Code(s): R76.8 - Other specified abnormal immunological findings in serum Category: Medical Plan acapella valve for CPT Breztri with spacer BID as needed MARY as needed restart singulair, seasonally pseudophed as needed ambien for sleep ENT FU F/U 6 months Orders: Orders Influenza [id number] Immunization 02/03/25 J45.40 - Moderate persistent asthma, uncomplicated Coding Level of Care Code Est Pt Level 4 (01847) Complex EM visit Add On G2211 Diagnoses Moderate persistent asthma without complication J45.40 Asthma complication type: uncomplicated Asthma persistence: persistent Asthma severity: moderate Pneumonitis J98.4 Hypersensitivity pneumonitis J67.9 H/O interstitial lung disease Z87.09 KRISTOPHER positive R76.8 Positive anti-CCP test R76.8 Time Spent (min) 17
--- OUTSIDE RECORDS SUMMARY | 2025-02-03 11:45 | XMS_ITS | Encounter Summary ---
Author Organization [facility] Address [address] [address] Phone Care Team Providers Care Marketing Regional Consultant Name Role Phone Alyssa Jimenes MD Primary Care Provide r Encounter Details Date Type Department Care Team (Late st Contact Info) Description 01/23/2024 Procedure Pass [facility], Ct Scan - [address] [address] Social History Tobacco Use Types Packs/Day Years Used Date Smoking Tobacco: Never Assessed Education Answer Date Recorded Are you interested in more education? Not on sanjuana e 01/23/2024 Are you concerned about learning? Not on file 01/23/2024 No 01/23/2024 No 01/23/2024 Digital Access Answer Date Recorded No 01/23/2024 No 01/23/2024 Reliable internet access at home? Not on file 01/23/2024 Device with a working camera? Not on file Intimate Partner Violence Answer Date R ecorded Are you denied basic needs s uch as food, clothing, or medical care? No 01/23/2024 In the past 12 months have y ou been in a relationship with a person who hurts, threatens, or tries to control you? No 01/23/2024 Are you denied basic needs s uch as food, clothing, or medical care? No 01/23/2024 In the past 12 months have y ou been in a relationship with a person who hurts, threatens, or tries to control you? No 01/23/2024 Comments Unknown Sex and Gender Information Value Date Recorded Sex Assigned at Female 01/23/2024 8:57 PM EDT Legal Sex Female 6:32 PM EST Gender Identity Female 01/23/2024 8:57 PM EDT Sexual Orientation Straight 01/25/2024 6: 48 AM EDT documented as of this encounter Functional Status * Calculated C-SSRS Risk Score (Lifetime/Recent) Answer Date of Assessment Author No Risk Indicated 01/23/2024 8:42 PM EDT Fabby Estrada RN * [place] Suicide Severity Rating Scale (Screener/Recent Self-Report) Question Answer Date of Assessment Author 1. Wish to be (Past 1 Month) No 024 8:42 PM EDT Fabby Estrada RN 2. Non-Specific Active Suici sadie Thoughts (Past 1 Month) No 01/23/2024 8:42 PM EDT Fabby Estrada RN 6. Suicidal Behavior (Lifetime) No 4 8:42 PM EDT Fabby Estrada RN documented as of this encounter Plan of Treatment Not on file documented as of this encounter Visit Diagnoses Not on filedocumented in this encounter Care Teams Marketing Regional Consultant Relationship Specialty Start Date End Date Alyssa Jimenes MD [address] [address] PCP - General 10/11/13 documented as of this encounter Additional Source Comments The information contained in this document represents components of the legal health record. It is not the complete legal health record.[facility]
--- OUTSIDE RECORDS SUMMARY | 2025-02-03 11:46 | XMS_ITS | Patient Health Record ---
[facility] Address [address] [place] [id number] Care Team Providers Care Residential Program Director Name Role Phone Magui Baez MD Primary Care Provider Santos Flores Unavailable [phone] Reason For Referral No Information Plan Of Treatment No Information Insurance Providers Payer Name Payer Address Payer Phone Subscriber Number Group Number Insured Name Patient Relationship to Insured Coverage Start Date Coverage End Date [facility] [address] [place] [address] [phone] [id number] Gayla Moody Self - patient is the insured
--- OUTSIDE RECORDS SUMMARY | 2025-02-03 11:46 | XMS_ITS | Clinical Summary ---
Author Organization [facility] Address [address] [place] [id number] Phone Care Team Providers Care Ordnance Artificer Helper Name Role Phone Alyssa Jimenes MD Primary Care Provide r Allergies No known active allergies Medications oxyCODONE 5 MG immediate release tablet Take 1 tablet (5 mg total) by mouth every 4 (four) hours as needed. Partial fill ok 8 tablet 01/24/2024 Active Social History Tobacco Use Types Packs/Day Years [...] Orientation Straight 01/25/2024 6: 48 AM EDT Last Filed Vital Signs Vital Sign Reading Time Taken Comments Blood Pressure 93/47 01/24/2024 1:21 AM EDT provider aware Pulse 92 01/24/2024 1:21 AM EDT Temperature 36.8 C (98.2 F) 01/23/2024 11:59 PM EDT Respiratory Rate 18 01/23/2024 11:5 9 PM EDT Oxygen Saturation 99% 01/24/2024 1:2 1 AM EDT Inhaled Oxygen Concentration - - Weight 59 kg (130 lb 1.1 oz) 01/23/2024 8:54 PM EDT Height 157.5 cm (5' 2.01 ) 01/23/2024 8 :54 PM EDT Body Mass Index 23.78 01/23/2024 8:54 PM EDT Plan of Treatment Not on file Medical Devices Not on file Insurance [address] [place], [place] [address] [address] HMO Care Teams Ordnance Artificer Helper Relationship Specialty Start Date End Date Alyssa Jimenes MD [address] [place] [id number] PCP - General 10/11/13 Additional Source Comments The information contained in this document represents components of the legal health record. It is not the complete legal health record.[facility]
--- OUTSIDE RECORDS SUMMARY | 2025-02-03 11:46 | XMS_ITS | Clinical Summary ---
Author Organization [facility] Address [address] [place] [phone] Phone Care Team Providers Care Make Up Man Name Role Phone Nasra Rodriguez MD Primary Care Provide r Encounters Date Type Department Care Team Description 02/03/2025 9:15 AM EDT Hospital Encounter [facility] [address] [phone] Encounter for screening mammogram for breast cancer from Last 3 Months Social History Tobacco Use Types Packs/Day Years Used Date Smoking Tobacco: Never Assessed Comments No Sex and Gender Information Value Date Recorded Sex Assigned at Not on file Legal Sex Female 1:35 PM EST Gender Identity Not on file Sexual Orientation Not on file Obstetrics History Para Term AB IAB SAB Ectopic Multiple Livin g Live Births 3 Last Filed Vital Signs Vital Sign Reading Time Taken Comments Blood Pressure - - Pulse - - Temperature - - Respiratory Rate - - Oxygen Saturation - - Inhaled Oxygen Concentration - - Weight 52.2 kg (115 lb) 02/03/2025 9:26 AM EDT Height 154.9 cm (5' 1 ) 02/03/2025 9:26 AM EDT Body Mass Index 21.73 02/03/2025 9:26 AM EDT Plan of Treatment Upcoming Encounters Date Type Department Care Team (Late st Contact Info) Description 02/09/2026 2:15 PM EDT [facility]ointment [facility] at [address] [phone] Health Maintenance Due Date Last Done Comments Colorectal Cancer Screening: Colonoscopy 1962 Pneumococcal Vaccine: 50+ Years (1 of 2 - PCV) 1981 Cervical Cancer Screening: P ap Smear 09/30/1983 RSV Immunization Adult Patients (1 - Risk 50-74 years 1-dose series) 2012 Zoster Vaccines (1 of 2) 2012 Cholesterol Screening (Lipid Panel) 03/26/2022 HIV Screening 03/26/2022 Hepatitis C Screening 03/26/2022 Social Influencers of Health Screening 03/26/2022 Depression Screening 04/13/2024 COVID-19 Vaccine (4 - 2024-2 6 season) 2024 05/03/2021, 05/25/2020, 05/04/2020 Influenza Vaccine (#1) 2024 2, 04/12/2020 Breast Cancer Screening 02/03/2027 02/04/20, 02/15/2022, 01/10/2020 DTaP,Tdap,and Td Vaccines (2 - Td or Tdap) 11/13/2034 11/13/2024 HIB Vaccines Aged Out No longer eligi ble based on patient's age to complete this topic HPV Vaccines Aged Out No longer eligi ble based on patient's age to complete this topic Hepatitis A Vaccines Aged Out No long er eligible based on patient's age to complete this topic Hepatitis B Vaccines Aged Out No long er eligible based on patient's age to complete this topic IPV Vaccines Aged Out No longer eligi ble based on patient's age to complete this topic MMR Vaccines Aged Out No longer eligi ble based on patient's age to complete this topic Meningococcal ACWY Vaccine Aged Out N o longer eligible based on patient's age to complete this topic Meningococcal B Vaccine Aged Out No l onger eligible based on patient's age to complete this topic RSV Immunization Patients Under 20 months Aged Out No longer eligible b ased on patient's age to complete this topic Varicella Vaccines Aged Out No longer eligible based on patient's age to complete this topic Procedures Procedure Name Priority Date/Time Associated Diagnosis Comments MG MAMMO DIGITAL SCREENING W JONI BILAT Routine 02/03/2025 9:41 AM EDT Encounter for screening mammogram for breast cancer from Last 3 Months Results * MG Mammo Digital Screening w [...] for biopsy. PQRI CPT II 3341F Code 81397, 27019 PQRI 225 CPT II 7025F TISSUE DENSITY: There are scattered areas of fibroglandular density. (BI-RADS category B) IMPRESSION: Benign. BI-RADS CATEGORY: 1 - NEGATIVE RECOMMENDATION: Screening bilateral mammogram is recommended in 1 year. Mammo Location: [facility], [address] [place] [address] -------- FINAL REPORT -------- Dictated By: Steven Ortez Dictated Date: 02/03/2025 09:54 ET Assigned Physician: Steven Ortez Reviewed and Electronically Signed By: Steven Ortez Signed Date: 02/03/2025 10:01 ET Workstation ID: [id number] Transcribed By: Self Edit Transcribed Date: 02/03/2025 09:54 ET Narrative 02/03/2025 10:01 AM EDT CLINICAL: The patient is a 64 years Female presenting for routine screening mammography. COMPARISON: Most recently 03/20/2023 and most remotely 04/24/2016. TECHNIQUE: Full-field digital mammography of the breasts bilaterally consisting of tomosynthesis in MLO and CC projection is performed in the [employer] 2000-D unit. Computer aided detection utilizing the [...] MLO and CC projection is performed in the[employer] 2000-D unit. Computer aided detection utilizing the [employer] was utilized. FINDINGS: The breasts are again [...] for biopsy. PQRI CPT II 3341F Code 45869, 39957 PQRI 225 CPT II 7025F TISSUE DENSITY: There are scattered areas of fibroglandular density.(BI-RADS category B) IMPRESSION: Benign. BI-RADS CATEGORY: 1 - NEGATIVE RECOMMENDATION: Screening bilateral mammogram is recommended in 1 year. Mammo Location: [facility], [address] [place] [address] -------- FINAL REPORT -------- Dictated By: Steven Ortez Dictated Date: 02/03/2025 09:54 ET Assigned Physician: Steven Ortez Reviewed and Electronically Signed By: Steven Ortez Signed Date: 02/03/2025 10:01 ET Workstation ID: [id number] Transcribed By: Self Edit Transcribed Date: 02/03/2025 09:54 ET us Self Referral Sppl IMG BI PROCEDURES Final Resul t from Last 3 Months Insurance [facility] [address] [place] [id number] Care Teams Make Up Man Relationship Specialty Start Date End Date Nasra Rodriguez MD [address] [place] [address] [place] PCP - General Internal Medicine 10/21/24
--- OUTSIDE RECORDS SUMMARY | 2025-02-03 11:46 | XMS_ITS ---
Author Name [facility] Organization Unknown History of Medication Use Medication Directions Dispensed Refills Start Date End Date Stat us triamcinolone (NASACORT AQ) 55 MCG/ACT Aerosol nasal spray 2 sprays into each nostril daily. 05/12/2024 active Breztri Aerosphere 160-9-4.8 MCG/ACT Aerosol Inhale 2 puffs 2 times a day. 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 [facility] Low vitamin D level active 2024-05-12 ProblemAct [facility] Immunizations Vaccine Date Source Lot Number Status Influenza Virus Trivalent Sp lit Vaccine (MDV) IM 02/28/2022 [facility] [id number] completed Influenza, Trivalent (FLUARI X, AFLURIA, FLULAVAL, FLUZONE) Preservative Free IM 02/28/2022 [facility] [id number] completed Influenza Virus Trivalent Sp lit Vaccine (MDV) IM 04/12/2020 [facility] [id number] completed Influenza, Quadrivalent (FLU ARIX, AFLURIA, FLULAVAL, FLUZONE) Preservative Free IM 04/12/2020 [facility] [id number] completed Encounters Encounter Type Encounter Reason Primary Diagnosis Location Date Ambulatory Sensorineural hearin g loss, bilateral Sensorineural hearing loss, bilateral [facility] 09/13/2024 Ambulatory Follow-up Follow-up [facility] 07/12/2024 Ambulatory Ear Fullness Ear Fullness [facility] 06/01/2024 Ambulatory [facility] 05/12/2024 Care Team Organization Name Specialty Phone Email Start Date End Da te [facility] Nasra Rodriguez [facility] 07/12/2024 10/12/2024 [facility] 06/22/2024 10/12/2024 [facility] Nasra Rodriguez [facility] 05/23/2024 [facility] 03/17/2024
== END 2025-02-03 10:59 | disposition home or self-care (01) ==
PROVIDERS: PCP Internal Medicine; Visit Provider Hospitalist
DX: J45.40 Moderate persistent asthma, uncomplicated (principal)

== ENCOUNTER → 2025-02-03 10:18 | Outpatient (BNVA) | payer OTHER, SELFPAY | PROVIDERS: PCP Internal Medicine; Visit Provider Hospitalist | DX: J45.40 Moderate persistent asthma, uncomplicated (principal); J98.4 Other disorders of lung; J67.9 Hypersensitivity pneumonitis due to unspecified organic dust; R76.89 Other specified abnormal immunological findings in serum; Z87.09 Personal history of other diseases of the respiratory system | CPT/HCPCS: 90471; 90656 ==